=== PATIENT | male | born 1975 | race Caucasian/White ===

== ENCOUNTER 2023-05-14 14:54 | Inpatient (IN) | payer OTHER, MEDICAID, SELFPAY ==
[2023-05-14] VITALS (58 sets, daily range): BP systolic 101–150; BP diastolic 51–75; PULSE 83–106; RESP 0–34; TEMP 36.4–38.5; O2SAT 92–100; BMI 36.6
--- NOTE | 2023-05-14 14:53 | DI.CT.S_ITS ---
PROCEDURE: CT CHEST W CON INDICATIONS: large post chest abscess, sepsis TECHNIQUE: After the administration of intravenous contrast, 5 mm thick sections acquired from the pulmonary apices to the posterior costophrenic angles. 1 mm axial lung, 5 mm thick coronal and sagittal reformats and 7 mm axial MIP were acquired. For radiation dose reduction, the following was used: automated exposure control, adjustment of mA and/or kV according to patient size. COMPARISON: None. FINDINGS: Image quality: Diagnostic. Lower Neck: No enlarged lymph nodes. Thyroid: No thyroid nodules which require sonographic follow up, per consensus guidelines. Axillae: No enlarged lymph nodes. Chest Wall: There is a 6.6 x 10.4 cm focus of inflammatory change predominantly in the right superior posterior chest wall at the level of the scapula. No defined fluid collection is present. There is thickening of the skin surface adjacent to the inflammatory change. Bones: Unremarkable. Lungs and Pleura: No pneumothorax or pleural effusions. No consolidation or suspicious nodules. Heart: Heart size is normal. No pericardial effusion. Thoracic Vessels: The aorta and pulmonary arteries demonstrate normal size. Mediastinum and Lizbeth: No enlarged lymph nodes. Esophagus: No wall thickening. Mild hiatal hernia. Upper Abdomen: Steatosis. Visualized upper abdomen solid organs and bowel loops appear normal. IMPRESSION: Focus of inflammatory change within the posterior chest wall suggestive of infection/inflammation. No drainable fluid collection is currently identified. Dictated by: Bobbi Park M.D. on 05/14/2023 at 16:39 Approved by: Bobbi Park M.D. on 05/14/2023 at 16:42
[2023-05-14] MEDS: SODIUM CHLORIDE 0.9% 1,000 ML 1000 ML IV (15:12)
[2023-05-14] MEDS: HYDROMORPHONE 1 MG INJ IV (15:12)
[2023-05-14 15:16] LABS: pH VBG 7.54 (7.33-7.43)
[2023-05-14 15:17] LABS: Fractionated Inspired Oxygen 21; HCO3 VBG 14 mmol/L (24-28); Oxygen Saturation VBG 67 % (70-75); PCO2 VBG < 18.2 mmHg (45-50); PO2 VBG 28 mmHg (35-45); Total CO2 VBG 15 mmol/L (24-29)
[2023-05-14] MEDS: LIDOCAINE 2% (GLYDO) 6 ML GEL TOP (15:18)
[2023-05-14 15:32] LABS: Hematocrit 45.3 % (41-53); Hemoglobin 15.5 g/dL (13.5-17.5); Mean Corpuscular HGB Conc 34.4 % (30-36); Mean Corpuscular Hemoglobin 30.4 PG (26-34); Mean Corpuscular Volume 88.5 fL (80-100); Platelet Count 449 X10^3/uL (150-400); Red Blood Cell Count 5.11 X10^6/uL (4.5-5.9); Red Cell Distribution Width 13.1 % (11.6-14.8)
[2023-05-14] MEDS: CEFEPIME 2 GM in SODIUM CHLORIDE 0.9% 100 ML IV (15:37)
[2023-05-14 15:39] LABS: Alanine Aminotransferase 28 IU/L (<50); Albumin 3.4 g/dL (3.5-5.0); Albumin Globulin Ratio 0.9 (1.0-2.8); Alkaline Phosphatase 181 U/L (38-126); Aspartate Aminotransferase 36 IU/L (17-59); BUN Creatinine Ratio 26.8 (6-22); Bilirubin Total 0.8 mg/dL (0.2-1.3); Blood Urea Nitrogen 26 mg/dL (9-20); Calcium 8.6 mg/dL (8.4-10.2); Carbon Dioxide 15 mmol/L (22-32); Chloride 96 mmol/L (98-107); Estimated Glomerular Filt Rate > 60 mL/min (>60); Globulin 3.7 g/dL (1.7-4.1); Glucose 441 mg/dL (70-100); HEMOLYSIS < 15 (0-50); Ketones (Beta-Hydroxybutyrate) 4.19 mmol/L (<0.27); Lipase 43 U/L (23-300); Magnesium 2.7 mg/dL (1.6-2.3); Potassium 4.6 mmol/L (3.4-5.1); Sodium 126 mmol/L (137-145); Total Protein 7.1 g/dL (6.3-8.2)
[2023-05-14 15:40] LABS: Add Manual Diff / Slide Review YES
--- NOTE | 2023-05-14 15:40 | ED_ITS ---
HPI - General Adult General Chief complaint: Wound/Laceration Stated complaint: Wasp sting Time Seen by Provider: 05/14/23 14:54 Source: EMS Mode of arrival: EMS History of Present Illness HPI narrative: 47-year-old gentleman who states he has no significant medical problems states that he was stung by a ground wasp on May 03, the wasp was caught in his hair and continued stinging him for an extended period of time. The next day he was feeling unwell, was worried that he was going to either vomit or have a bowel movement went to the bathroom and woke up on May 07. He was able to call out enough for a neighbor to here, they apparently helped him back into bed and helped him clean up the bathroom. He has not sure what happened in the interval. Another friend came over and put a dressing on the wasp sting/wound on his back. He is continued to worsen and is brought in by medics. He has a large abscess on his back, he is pale, ivy, tachypneic looks acutely ill. He states that his legs are typically always weak but his arms are so weak he is having difficulty lifting them, they feel ?like wet noodles?. He is currently alert, able to carry on a complete conversation, he is tachypneic without any wheezing or accessory muscle use. Related Data Allergies Allergy/AdvReac Type Severity Reaction Status Date / Time azithromycin Allergy Unknown Verified 05/14/23 15:08 Penicillins Allergy Unknown Verified 05/14/23 15:08 Review of Systems Review of Systems Narrative: Pertinent positive and negative findings as per HPI Patient History Social History Smoking Status: Never smoker Smoking Status: Never smoker alcohol intake frequency: 0-2 drinks per day Substance Use Type: does not use Exam Initial Vital Signs Initial Vital Signs: Vital Signs Temperature 97.5 F L 05/14/23 15:00 Pulse Rate 106 H 05/14/23 15:00 Respiratory Rate 18 05/14/23 15:00 Blood Pressure 150/75 H 05/14/23 15:00 Pulse Oximetry 99 05/14/23 15:00 Oxygen Delivery Method Room Air 05/14/23 15:00 General: Acutely ill-appearing, tachypneic, he is able to speak in full sentences, poor overall color without diaphoresis HEENT: mucous membranes, normal sclera with reactive pupils, Neck: No JVD, no cervical adenopathy Respiratory: Lungs are clear to auscultation, no wheezing no rales no rhonchi. Full and symmetrical air movement, rapid rate Chest: Large, estimated 15 x 20 cm abscess/cellulitis over the right scapular area. There is fluctuance no obvious area drainage Cardiac: Rapid but otherwise Regular rate and rhythm no murmurs no bruits Abdomen: Soft, nontender, no flank pain Skin: Pale, he has not diaphoretic, other than the abscess over his back there was no obvious rashes. He does not have any chronic venous stasis changes Neurologic: Globally weak but can move all extremities Extremities: No trauma, no lower extremity edema. Poor distal perfusion central perfusion is maintained Psych: Cooperative, somewhat confused Course Orders Ordered: ED Orders 05/14/23 14:53 CT chest w con Stat 05/14/23 14:54 Blood Culture Stat EKG-12 Lead Stat 05/14/23 15:08 Venous Blood Gas Stat 05/14/23 15:11 Complete Blood Count AUTO DIFF Stat Comprehensive Metabolic Panel Stat Ethanol (ETOH) Stat Ketones (Beta-Hydroxybutyrate) Stat Lactate (Lactic Acid) Stat Lipase Stat Magnesium Stat Pathologist Review (for CBC) Stat Procalcitonin Stat Troponin & CK Cardiac Panel Stat 05/14/23 15:19 Wound Culture and Gram Stain Stat 05/14/23 15:21 Consult to MANAGER [employer] - Gastroenterology Manager Stat 05/14/23 15:40 Ictotest Urine Stat Urinalysis and Microscopic Stat Urine Drug Screen, Rapid Stat Acetaminophen (Acetaminophen 325 Mg Tablet) 650 mg PO Q6H PRN PRN Reason: Fever/Mild Pain (1-3) Heparin Sodium (Porcine) (Heparin 5,000 Unit/Ml Vial) 5,000 unit SUBCUT BID AKILAH Hydromorphone HCl (Hydromorphone 0.5 Mg Inj) 0.5 mg IV Q15MIN PRN PRN Reason: Pain, Severe (7-10) Last Admin: 05/14/23 16:48 Dose: 0.5 mg Documented By: SERGIO Vancomycin HCl/Dextrose (Vancomycin) 2,000 mg in 400 mls @ 200 mls/hr IV NOW ONE Stop: 05/14/23 18:14 Last Admin: 05/14/23 16:51 Dose: 200 mls/hr Documented By: SERGIO Sodium Chloride (Normal Saline 0.9%) 2,328 mls @ 776 mls/hr 30 ml/kg infuse over 3 hr (2328 ml) IV NOW ONE Stop: 05/14/23 20:22 Sodium Chloride (Normal Saline 0.45%) 1,000 mls @ 100 mls/hr IV CONT AKILAH Cefepime HCl 2 gm/ Sodium (Chloride) 100 mls @ 200 mls/hr IV Q12H AKILAH Ibuprofen (Ibuprofen 600 Mg Tablet) 600 mg PO Q6H PRN PRN Reason: Fever/Mild Pain (1-3) Morphine Sulfate (Morphine 4 Mg/Ml Inj) 3 mg IV Q2HR AKILAH Naloxone HCl (Naloxone 0.4 Mg/Ml Vial) 0.2 mg IV Q2MIN PRN PRN Reason: Opiate Reversal Ondansetron HCl (Ondansetron 4 Mg/2 Ml Inj) 4 mg IV Q8HR PRN PRN Reason: Nausea And Vomiting Oxycodone HCl (Oxycodone Ir 5 Mg Tablet) 5 mg PO Q3H PRN PRN Reason: Pain, Moderate (4-6) Vancomycin HCl (Vancomycin Per Pharmacy) 1 request MISC NOW PRN PRN Reason: cellulitis Discontinued Medications Hydromorphone HCl (Hydromorphone 1 Mg Inj) 1 mg IV NOW ONE Stop: 05/14/23 15:09 Last Admin: 05/14/23 15:12 Dose: 1 mg Documented By: RYAN Sodium Chloride (Normal Saline 0.9%) 1,000 mls @ 1,000 mls/hr IV BOLUS ONE Stop: 05/14/23 15:52 Last Infusion: 05/14/23 16:35 Dose: Infused Documented By: Admin: 05/14/23 15:12 Dose: 1,000 mls/hr Documented By: RYAN Cefepime HCl 2 gm/ Sodium (Chloride) 100 mls @ 200 mls/hr IV NOW ONE Stop: 05/14/23 14:54 Last Infusion: 05/14/23 16:10 Dose: Infused Documented By: Admin: 05/14/23 15:37 Dose: 200 mls/hr Documented By: ERICKSON Acetaminophen (Ofirmev) 1,000 mg in 100 mls @ 400 mls/hr IV NOW ONE Stop: 05/14/23 16:50 Last Infusion: 05/14/23 17:05 Dose: Infused Documented By: Admin: 05/14/23 16:49 Dose: 400 mls/hr Documented By: SERGIO Lidocaine HCl (Lidocaine 2% (Glydo) 6 Ml Gel) 6 ml TOP NOW ONE Stop: 05/14/23 15:10 Last Admin: 05/14/23 15:18 Dose: 6 ml Documented By: RYAN Vancomycin HCl (Vancomycin Per Pharmacy) 1 request MISC NOW ONE Stop: 05/14/23 14:54 Last Admin: 05/14/23 17:00 Dose: Not Given Documented By: SERGIO Vital Signs Vital signs: Vital Signs - 8 hr 05/14/23 15:00 05/14/23 15:00 05/14/23 15:00 Temperature 97.5 F L Pulse Rate 106 H 106 H Respiratory Rate 18 23 Blood Pressure 150/75 H 150/73 H Pulse Oximetry 99 100 Oxygen Delivery Method Room Air 05/14/23 15:10 05/14/23 15:20 05/14/23 15:20 Temperature Pulse Rate 102 H 96 H Respiratory Rate 28 H 28 H Blood Pressure 124/67 Pulse Oximetry 100 98 Oxygen Delivery Method Room Air 05/14/23 15:30 05/14/23 15:30 05/14/23 15:40 Temperature 100.2 F H Pulse Rate 100 H 94 H Respiratory Rate 26 H 15 Blood Pressure 136/67 Pulse Oximetry 100 100 Oxygen Delivery Method Room Air 05/14/23 15:40 05/14/23 15:50 05/14/23 15:52 Temperature 100.9 F H 101.1 F H Pulse Rate 95 H 93 H Respiratory Rate 34 H 23 Blood Pressure 133/66 Pulse Oximetry 99 100 Oxygen Delivery Method 05/14/23 15:52 05/14/23 16:00 05/14/23 16:00 Temperature 101.1 F H Pulse Rate 87 Respiratory Rate 17 Blood Pressure 146/64 H 134/62 Pulse Oximetry 99 Oxygen Delivery Method 05/14/23 16:10 05/14/23 16:10 05/14/23 16:26 Temperature 101.3 F H 101.3 F H Pulse Rate 85 96 H Respiratory Rate 15 17 Blood Pressure 129/62 Pulse Oximetry 96 Oxygen Delivery Method 05/14/23 16:26 05/14/23 16:30 05/14/23 16:30 Temperature 101.1 F H Pulse Rate 95 H Respiratory Rate 22 Blood Pressure 142/63 H 143/67 H Pulse Oximetry 99 Oxygen Delivery Method 05/14/23 16:40 05/14/23 16:40 05/14/23 16:50 Temperature 101.1 F H 101.1 F H Pulse Rate 91 H 90 Respiratory Rate 16 16 Blood Pressure 129/59 L Pulse Oximetry 98 99 Oxygen Delivery Method Room Air 05/14/23 16:50 05/14/23 17:00 05/14/23 17:00 Temperature 101.1 F H Pulse Rate 96 H Respiratory Rate 20 Blood Pressure 131/66 136/75 Pulse Oximetry 99 Oxygen Delivery Method 05/14/23 17:01 05/14/23 17:10 05/14/23 17:15 Temperature 101.1 F H 101.1 F H 101.1 F H Pulse Rate 83 87 Respiratory Rate 0 L 7 L Blood Pressure Pulse Oximetry 98 96 Oxygen Delivery Method 05/14/23 17:15 05/14/23 17:20 05/14/23 17:30 Temperature 101.1 F H Pulse Rate 92 H 93 H Respiratory Rate 7 L 8 L Blood Pressure 112/54 L Pulse Oximetry 95 94 Oxygen Delivery Method 05/14/23 17:30 05/14/23 17:40 05/14/23 17:45 Temperature 100.8 F H Pulse Rate 98 H Respiratory Rate 12 Blood Pressure 105/51 L 106/56 L Pulse Oximetry 97 Oxygen Delivery Method 05/14/23 17:45 Temperature 100.8 F H Pulse Rate 97 H Respiratory Rate 17 Blood Pressure Pulse Oximetry 98 Oxygen Delivery Method Medical Decision Making Lab Data 05/14/23 15:11 05/14/23 15:11 Labs: Lab Results 05/14/23 05/14/23 05/14/23 Range/Units 15:08 15:11 15:11 WBC 38.0 H* (4.5-11.0) X10^3/uL RBC 5.11 (4.5-5.9) X10^6/uL Hgb 15.5 (13.5-17.5) g/dL Hct 45.3 (41-53) % MCV 88.5 (80-100) fL MCH 30.4 (26-34) PG MCHC 34.4 (30-36) % RDW 13.1 (11.6-14.8) % Plt Count 449 H (150-400) X10^3/uL Neut % (Auto) Not Reportable Lymph % (Auto) Not Reportable [place] % (Auto) Not Reportable Eos % (Auto) Not Reportable Baso % (Auto) Not Reportable Lymph # (Auto) Not Reportable [place] # (Auto) Not Reportable Baso # (Auto) Not Reportable Total Counted 100 Seg Neutrophils % 53.0 (38-70) % Band Neutrophils % 22.0 H (3-7) % Lymphocytes % (Manual) 6.0 L (25-45) % Atypical Lymphs % 5.0 H ( - 0) % Monocytes % (Manual) 11.0 (2-11) % Metamyelocytes % 3.0 H (-0) % Neutrophils # (Manual) 09913 H (5285-1796) /uL RBC Morphology Normal morphology VBG pH 7.54 H (7.33-7.43) VBG pCO2 < 18.2 L (45-50) mmHg VBG pO2 28 L (35-45) mmHg VBG HCO3 14 L (24-28) mmol/L VBG Total CO2 15 L (24-29) mmol/L VBG O2 Saturation 67 L (70-75) % VBG Base Excess -8.0 L (0-4) mmol/L FiO2 21 Sodium 126 L (137-145) mmol/L Potassium 4.6 (3.4-5.1) mmol/L Chloride 96 L (98-107) mmol/L Carbon Dioxide 15 L (22-32) mmol/L BUN 26 H (9-20) mg/dL Creatinine 0.97 (0.66-1.25) mg/dL Estimated GFR > 60 (>60) mL/min BUN/Creatinine Ratio 26.8 H (6-22) Glucose 441 H (70-100) mg/dL Lactate 4.0 H (0.7-2.1) mmol/L Calcium 8.6 (8.4-10.2) mg/dL Magnesium 2.7 H (1.6-2.3) mg/dL Total Bilirubin 0.8 (0.2-1.3) mg/dL AST 36 (17-59) IU/L ALT 28 (<50) IU/L Alkaline Phosphatase 181 H (38-126) U/L Total Creatine Kinase 40 L (55-170) U/L Troponin I Cancelled < 0.012 Total Protein 7.1 (6.3-8.2) g/dL Albumin 3.4 L (3.5-5.0) g/dL Globulin 3.7 (1.7-4.1) g/dL Albumin/Globulin Ratio 0.9 L (1.0-2.8) Lipase 43 (23-300) U/L Procalcitonin 0.98 H (<0.5) ng/mL Urine Color Urine Appearance Urine pH (4.5-8.0) Ur Specific [place] (1.000-1.035) Urine Protein (Negative) Urine Glucose (UA) (Negative) g/dL Urine Ketones (NEGATIVE) Urine Occult Blood (Negative) Urine Nitrate (Negative) Urine Bilirubin (NEGATIVE) Ur Bilirubin Confirm (Negative) Urine Urobilinogen (0.2) E.U./dL Ur Leukocyte Esterase (NEGATIVE) Urine RBC (0-5/HPF) Urine WBC (0-5/HPF) Ur Squamous Epith Cells (0-5/HPF) Urine Bacteria (None) Hyaline Casts (None) Ur Culture Indicated? Vol Urine Centrifuged U Opiates 300ng/mL cut (Negative) Ur Oxycodone Screen (Negative) Urine Methadone Screen (Negative) Ur Barbiturates Screen (Negative) U Tricyclic Antidepress (Negative) Ur Phencyclidine Scrn (Negative) Ur Amphetamines Screen (Negative) U Methamphetamines Scrn (Negative) Ur MDMA Scrn (Ecstasy) (Negative) U Benzodiazepines Scrn (Negative) Urine Cocaine Screen (Negative) U Marijuana (THC) Screen (Negative) Urine Specific [place] (Normal) Ethyl Alcohol < 10 ( - 10) mg/dL Ketones 4.19 H (<0.27) mmol/L Ur Creatinine (Normal) 05/14/23 05/14/23 05/14/23 Range/Units 15:40 15:40 17:26 WBC (4.5-11.0) X10^3/uL RBC (4.5-5.9) X10^6/uL Hgb (13.5-17.5) g/dL Hct (41-53) % MCV (80-100) fL MCH (26-34) PG MCHC (30-36) % RDW (11.6-14.8) % Plt Count (150-400) X10^3/uL Neut % (Auto) Lymph % (Auto) [place] % (Auto) Eos % (Auto) Baso % (Auto) Lymph # (Auto) [place] # (Auto) Baso # (Auto) Total Counted Seg Neutrophils % (38-70) % Band Neutrophils % (3-7) % Lymphocytes % (Manual) (25-45) % Atypical Lymphs % ( - 0) % Monocytes % (Manual) (2-11) % Metamyelocytes % (-0) % Neutrophils # (Manual) (7310-7202) /uL RBC Morphology VBG pH (7.33-7.43) VBG pCO2 (45-50) mmHg VBG pO2 (35-45) mmHg VBG HCO3 (24-28) mmol/L VBG Total CO2 (24-29) mmol/L VBG O2 Saturation (70-75) % VBG Base Excess (0-4) mmol/L FiO2 Sodium (137-145) mmol/L Potassium (3.4-5.1) mmol/L Chloride (98-107) mmol/L Carbon Dioxide (22-32) mmol/L BUN (9-20) mg/dL Creatinine (0.66-1.25) mg/dL Estimated GFR (>60) mL/min BUN/Creatinine Ratio (6-22) Glucose (70-100) mg/dL Lactate 2.1 (0.7-2.1) mmol/L Calcium (8.4-10.2) mg/dL Magnesium (1.6-2.3) mg/dL Total Bilirubin (0.2-1.3) mg/dL AST (17-59) IU/L ALT (<50) IU/L Alkaline Phosphatase (38-126) U/L Total Creatine Kinase (55-170) U/L Troponin I Total Protein (6.3-8.2) g/dL Albumin (3.5-5.0) g/dL Globulin (1.7-4.1) g/dL Albumin/Globulin Ratio (1.0-2.8) Lipase (23-300) U/L Procalcitonin (<0.5) ng/mL Urine Color Yellow Urine Appearance Clear Urine pH 5.0 Normal (4.5-8.0) Ur Specific [place] 1.015 (1.000-1.035) Urine Protein 1+ H (Negative) Urine Glucose (UA) 2+ H (Negative) g/dL Urine Ketones 2+ H (NEGATIVE) Urine Occult Blood 1+ H (Negative) Urine Nitrate Negative (Negative) Urine Bilirubin 1+ H (NEGATIVE) Ur Bilirubin Confirm Negative (Negative) Urine Urobilinogen 0.2 (0.2) E.U./dL Ur Leukocyte Esterase Negative (NEGATIVE) Urine RBC None seen (0-5/HPF) Urine WBC 0-1/hpf (0-5/HPF) Ur Squamous Epith Cells 0-1 /hpf (0-5/HPF) Urine Bacteria None seen (None) Hyaline Casts 1-5/lpf (None) Ur Culture Indicated? Cult not indicated Vol Urine Centrifuged 10ml (spun) U Opiates 300ng/mL cut Negative (Negative) Ur Oxycodone Screen Negative (Negative) Urine Methadone Screen Negative (Negative) Ur Barbiturates Screen Negative (Negative) U Tricyclic Antidepress Negative (Negative) Ur Phencyclidine Scrn Negative (Negative) Ur Amphetamines Screen Negative (Negative) U Methamphetamines Scrn Negative (Negative) Ur MDMA Scrn (Ecstasy) Negative (Negative) U Benzodiazepines Scrn Negative (Negative) Urine Cocaine Screen Negative (Negative) U Marijuana (THC) Screen Negative (Negative) Urine Specific [place] Normal (Normal) Ethyl Alcohol ( - 10) mg/dL Ketones (<0.27) mmol/L Ur Creatinine Normal (Normal) Point of Care Testing Glucose POC 415 Point of care testing: Point of Care Testing Glucose POC [address] scan - chest: Radiologist's Impression: PROCEDURE: CT CHEST W CON INDICATIONS: large post chest abscess, sepsis TECHNIQUE: After the administration of intravenous contrast, 5 mm thick sections acquired from the pulmonary apices to the posterior costophrenic angles. 1 mm axial lung, 5 mm thick coronal and sagittal reformats and 7 mm axial MIP were acquired. For radiation dose reduction, the following was used: automated exposure control, adjustment of mA and/or kV according to patient size. COMPARISON: None. FINDINGS: Image quality: Diagnostic. Lower Neck: No enlarged lymph nodes. Thyroid: No thyroid nodules which require sonographic follow up, per consensus guidelines. Axillae: No enlarged lymph nodes. Chest Wall: There is a 6.6 x 10.4 cm focus of inflammatory change predominantly in the right superior posterior chest wall at the level of the scapula. No defined fluid collection is present. There is thickening of the skin surface adjacent to the inflammatory change. Bones: Unremarkable. Lungs and Pleura: No pneumothorax or pleural effusions. No consolidation or suspicious nodules. Heart: Heart size is normal. No pericardial effusion. Thoracic Vessels: The aorta and pulmonary arteries demonstrate normal size. Mediastinum and Lizbeth: No enlarged lymph nodes. Esophagus: No wall thickening. Mild hiatal hernia. Upper Abdomen: Steatosis. Visualized upper abdomen solid organs and bowel loops appear normal. IMPRESSION: Focus of inflammatory change within the posterior chest wall suggestive of infection/inflammation. No drainable fluid collection is currently identified. Dictated by: Bobbi Park M.D. on 05/14/2023 at 16:39 MDM Narrative Medical decision making narrative: CC: Wasp sting to the right clavicle area with large abscess and initial concern for severe sepsis Complicating co-morbidities: Patient denies any medical diagnoses Data collected from: patient Social determinants of health that may influence the patients condition: Lives independently Medical records reviewed: None are available for review at [place], it does not appear that he has been to [facility]. [facility] has not seen him for more than 5 years Differential considered: Sepsis, large abscess, empyema Exam documented above, pertinent findings include: Patient appears acutely ill, tachypneic, large abscess over the right side of his upper back, poor peripheral perfusion maintain central perfusion Lab Test results independently reviewed as above. Pertinent findings: CBC is notable for a white count at 38,000, H and H is appropriate at 15.5 and 45.3 Venous blood gas has a pH of 7.54 with a CO2 of less than 18 (respiratory alkalosis) Chemistries are notable for appropriate creatinine at 0.97. Sodium is low at 126 corrects appropriately with a glucose at 4:41 a.m.. Carbon dioxide is low at 15, Lactic acid elevated at 4 Magnesium elevated at 2 point Bili AST ALT are unremarkable. Alk-phos slightly elevated at 181 Urine has protein glucose ketones blood no nitrites positive bili Ketones are positive at 4.19 Toxicology screen is unremarkable, Independently reviewed EKG: Sinus rhythm at a rate of 94. QTC is prolonged at 505 milliseconds. No acute ischemic changes. Imaging studies independently reviewed: CT scan of the chest is done with concern for development of large abscess. Shows the large area of cellulitis but no fluid collection that is drainable at this point. It does not connect with the pleural space Treatments: Fluids at 30 per kilos are initiated. Cefepime and vancomycin are started. Discussion: 47-year-old gentleman who was reportedly stung by a ground washed multiple times over the right scapular area. Multiple days at home that he states he was lying in the floor with no evidence of significant pressure sores or rhabdomyolysis. Significantly tachypneic with large cellulitis but no abscess collection that can be surgically treated at this time. He has been given fluids with 30 per kilos bolus ordered per sepsis protocol as well as started on cefepime and vancomycin. He is meeting criteria for severe sepsis but not for septic shock. Additional issues include significant hyperglycemia at 441, procalcitonin slightly elevated, ketones are positive he is tachypneic with a uncompensated respiratory alkalosis. He does not believe that he carries a diagnosis of diabetes. Patient is doing better with fluid resuscitation and after antibiotics and Tylenol for his fever. Care is discussed with the hospitalist service. In the absence of a drainable abscess he will go to medicine service with antibiotics, continued fluids, he is not tachypneic nor hypotensive but will start in the ICU tonight. We will need to follow the elevated blood sugars in the presence of ketones and significant tachypnea along with the alkalosis appreciated at 7.548. Additional Information: Severe Sepsis Criteria [ x] bacterial source of infection suspected and documented [ ] 2 SIRS Criteria met [ x ] HR >90 [x ] RR >20 [ ] fever or hypothermia [ x ] leukocytosis/leukopenia/bandemia [ ] Evidence of at least 1 organ system dysfunction [ x ] Lactate > 2 [ ] BP < 90 or MAP <65, >40mm decrease from normal baseline [ ] Creat > 2.0 [ ] T. Bili > 2.0 [ ] platelet count < 100k [ x ] altered mental status [ ] mechanical ventilation [ ] provider documentation of severe sepsis Severe Sepsis Determination. the patient has been screened and [ x] DOES meet criteria for severe sepsis [ ] DOES NOT meet criteria for severe sepsis Goal directed treatment Within 3 hours [ x ] blood cx drawn prior to abx [ x ] broad spectrum abx started [ x ] lactic acid level checked [ ] lactic redrawn within 6 hours if >2.0 Septic Shock Criteria [ ] lactic > 4 at any time [ ] SBP ,90 or MAP , 65 [ ] documentation of septic shock Time Septic Shock diagnosed: [ ] Septic Shock Determination. the patient has been screened and [ ] DOES meet criteria for septic shock [ ] DOES NOT meet criteria for septic shock Goal directed therapy within 3 hours of septic shock or initial hypotension [ ] 30ml/kg fluid [ ] ABW used [ ] IBW (33.6) used due to BMI > 30 [ ] patient or advocate declining fluid administration after shared decision making conversation Clinical reason for NOT initiating fluid bolus: Within 6 hours (if continued hypotension after fluids or initial lactate >4) [ ] repeat volume status and tissue perfusion assessment documented after fluid bolus was completed at [Date/Time] Must include vital signs, cardiopulmonary exam, capillary refill, peripheral pulse evaluation, skin exam [ ] Initiate vasopressor therapy if persistent hypotension after adequate fluid bolus Critical Care Time Critical Care Time Critical Care Time: Yes Total Critical Care Time: 33 Attestation: Critical care time is separate from other billable procedures. There is a high probability of a significant, sudden or life-threatening deterioration that requires my full and direct attention, intervention and personal management. This critical care time includes consultation with family and other consulting doctors, review of records, and interpretation of data from labs, EKGs and imaging as well as managements of sepsis, altered mental status Discharge Plan Departure Patient Disposition: Admitted As Inpatient Clinical Impression: Acute hyperglycemia, Alkalosis, metabolic, Acute metabolic encephalopathy Sepsis Qualifiers: Sepsis type: sepsis due to unspecified organism Sepsis acute organ dysfunction status: with acute organ dysfunction Severe sepsis acute organ dysfunction type: encephalopathy Severe sepsis shock status: without septic shock Qualified Code(s): A41.9 - Sepsis, unspecified organism Cellulitis Qualifiers: Site of cellulitis: trunk Site of cellulitis of trunk: back Qualified Code(s): L03.312 - Cellulitis of back [any part except buttock] Admit Date/Time: 05/14/23 17:47 Admit Provider: Rick Teague
[2023-05-14 15:44] LABS: Neutrophils Absolute Manual 28500 /uL (3000-5900); Total Cells Counted 100
[2023-05-14 15:45] LABS: Appearance Urine UA CLEAR; Bilirubin Urine UA 1+ (NEGATIVE); Color Urine UA YELLOW; Glucose Urine UA 2+ g/dL (Negative); Ketones Urine UA 2+ (NEGATIVE); Leukocyte Esterase Urine UA NEGATIVE (NEGATIVE); Nitrite Urine UA NEGATIVE (Negative); Occult Blood Urine UA 1+ (Negative); Protein Urine UA 1+ (Negative); Specific Gravity Urine UA 1.015 (1.000-1.035); Urobilinogen Urine UA 0.2 E.U./dL (0.2)
[2023-05-14 15:45] LABS: RBC Morphology Normal Morphology
[2023-05-14 15:46] LABS: Creatine Kinase 40 U/L (55-170)
[2023-05-14 15:54] LABS: Procalcitonin 0.98 ng/mL (<0.5)
[2023-05-14 15:55] LABS: Ictotest Urine Negative (Negative); Urine Volume 10mL (spun)
[2023-05-14 15:56] LABS: Bacteria Urine None Seen; Culture Indicated Urine Cult Not Indicated; Hyaline Casts Urine 1-5/LPF; RBC Urine None Seen (0-5/HPF); Squamous Epithelial Cell Urine 0-1 /HPF (0-5/HPF); WBC Urine 0-1/HPF (0-5/HPF)
[2023-05-14 15:59] LABS: Troponin I < 0.012 ng/mL (0.01-0.034)
[2023-05-14 16:03] LABS: UR Morphine/Opiate cutoff 300 Negative (Negative); Ur Creatinine Normal (Normal); Ur Specific Gravity Normal (Normal); Urine Amphetamines Negative (Negative); Urine Barbiturates Negative (Negative); Urine Benzodiazepines Negative (Negative); Urine Cocaine Negative (Negative); Urine MDMA Negative (Negative); Urine Methadone Negative (Negative); Urine Methamphetamines Negative (Negative); Urine Oxycodone Negative (Negative); Urine Phencyclidine Negative (Negative); Urine Tetrahydrocannabinol Negative (Negative); Urine Tricyclic Antidepressant Negative (Negative); Urine pH Normal (Normal)
[2023-05-14 16:12] LABS: Ethanol (ETOH) < 10 mg/dL
[2023-05-14] MEDS: HYDROMORPHONE 0.5 MG INJ IV (16:48)
[2023-05-14] MEDS: ACETAMINOPHEN IV 1,000 MG/100 ML VIAL 400 MG IV (16:49)
[2023-05-14] MEDS: VANCOMYCIN 2,000 MG/400 ML PIGGYBACK 200 MG IV (16:51)
[2023-05-14 16:54] LABS: Reflexed Lactate in 2 Hours Y
[2023-05-14 17:43] LABS: Lactate 2HR (Lactic Acid Rflx) 2.1 mmol/L (0.7-2.1)
--- NOTE | 2023-05-14 18:03 | PM.HP.1 ---
History of Present Illness History of Present Illness Date Patient Seen: 05/14/23 Time Patient Seen: 18:03 Chief complaint: Wasp sting Narrative: The patient was stung by a wasp on May 04. He lost time from May 04 to May 07 and had felt unwell since the sting. Since the he has had progressive fatigue and difficulty with weakness. He lives alone and multiple friends have stopped by to assist. Ultimately a friend noted that he has what appears to be a large infection on his back over a shoulder blade. He came into the ER where he was found to be pale and tachypneic and looked acutely ill. He notes his arms and legs are weak, his chronic weakness of legs is normal but his arms are usually stronger. In the ED he was [place] [id number]. He has a very large area of induration over the shoulder blade. CT scan was negative for obvious fluid collection. There was no evidence of fasciitis. The patient was given IV antibiotics and also found to have hyperglycemia with a glucose of over 500. He reports no history of diabetes. He was also tachypneic and a venous blood gas revealed a pH of 7.54 with a pCO2 of 15 NaHCO3 of 14. His sodium was 126, chloride 96, creatinine 0.97. Glucose was 441 with a lactic acid of 4.0 and a calcium of 8.6. A urine drug screen was negative. In talking to the patient more he has little to add that is concrete. He does note that he decided to be all for help through his window at his house today because he was going into organ failure. He denies any history of known diabetes but notes that his mother had diabetes. He also is not sure if he has been urinating more or less recently. [facility] Social History household members: none Smoking Status: Never smoker Meds Home Medications and Allergies Home Medications Medication Instructions Recorded Confirmed Type No Known Home Medications 05/14/23 05/14/23 History Allergies Allergy/AdvReac Type Severity Reaction Status Date / Time azithromycin Allergy Unknown Verified 05/14/23 15:08 Penicillins Allergy Unknown Verified 05/14/23 15:08 Review of Systems Review of Systems Narrative: All else reviewed and otherwise unremarkable except as noted in the history and physical. Exam Vital Signs (past 8 hours): - 05/14/23 15:00 05/14/23 15:00 05/14/23 15:00 Temperature 97.5 F L Pulse Rate 106 H 106 H Respiratory Rate 18 23 Blood Pressure 150/75 H 150/73 H Pulse Oximetry 99 100 Oxygen Delivery Method Room Air 05/14/23 15:10 05/14/23 15:20 05/14/23 15:20 Temperature Pulse Rate 102 H 96 H Respiratory Rate 28 H 28 H Blood Pressure 124/67 Pulse Oximetry 100 98 Oxygen Delivery Method Room Air 05/14/23 15:30 05/14/23 15:30 05/14/23 15:40 Temperature 100.2 F H Pulse Rate 100 H 94 H Respiratory Rate 26 H 15 Blood Pressure 136/67 Pulse Oximetry 100 100 Oxygen Delivery Method Room Air 05/14/23 15:40 05/14/23 15:50 05/14/23 15:52 Temperature 100.9 F H 101.1 F H Pulse Rate 95 H 93 H Respiratory Rate 34 H 23 Blood Pressure 133/66 Pulse Oximetry 99 100 Oxygen Delivery Method 05/14/23 15:52 05/14/23 16:00 05/14/23 16:00 Temperature 101.1 F H Pulse Rate 87 Respiratory Rate 17 Blood Pressure 146/64 H 134/62 Pulse Oximetry 99 Oxygen Delivery Method 05/14/23 16:10 05/14/23 16:10 05/14/23 16:26 Temperature 101.3 F H 101.3 F H Pulse Rate 85 96 H Respiratory Rate 15 17 Blood Pressure 129/62 Pulse Oximetry 96 Oxygen Delivery Method 05/14/23 16:26 05/14/23 16:30 05/14/23 16:30 Temperature 101.1 F H Pulse Rate 95 H Respiratory Rate 22 Blood Pressure 142/63 H 143/67 H Pulse Oximetry 99 Oxygen Delivery Method 05/14/23 16:40 05/14/23 16:40 05/14/23 16:50 Temperature 101.1 F H 101.1 F H Pulse Rate 91 H 90 Respiratory Rate 16 16 Blood Pressure 129/59 L Pulse Oximetry 98 99 Oxygen Delivery Method Room Air 05/14/23 16:50 05/14/23 17:00 05/14/23 17:00 Temperature 101.1 F H Pulse Rate 96 H Respiratory Rate 20 Blood Pressure 131/66 136/75 Pulse Oximetry 99 Oxygen Delivery Method 05/14/23 17:01 05/14/23 17:10 05/14/23 17:15 Temperature 101.1 F H 101.1 F H 101.1 F H Pulse Rate 83 87 Respiratory Rate 0 L 7 L Blood Pressure Pulse Oximetry 98 96 Oxygen Delivery Method 05/14/23 17:15 05/14/23 17:20 05/14/23 17:30 Temperature 101.1 F H Pulse Rate 92 H 93 H Respiratory Rate 7 L 8 L Blood Pressure 112/54 L Pulse Oximetry 95 94 Oxygen Delivery Method 05/14/23 17:30 05/14/23 17:40 05/14/23 17:45 Temperature 100.8 F H Pulse Rate 98 H Respiratory Rate 12 Blood Pressure 105/51 L 106/56 L Pulse Oximetry 97 Oxygen Delivery Method 05/14/23 17:45 05/14/23 17:50 Temperature 100.8 F H 100.6 F H Pulse Rate 97 H 100 H Respiratory Rate 17 16 Blood Pressure Pulse Oximetry 98 99 Oxygen Delivery Method Oxygen Delivery Method Room Air Narrative Exam Narrative: NAD, alert and oriented, fluent speech, calm. Odd affect. He appears moderately ill but in no distress. Normocephalic skull, EOMI, anicteric sclera, symmetric pupils. Oropharynx unremarkable, no droop. Neck supple, midline trachea, no adenopathy. Lungs clear, normal rate and effort. Heart regular, no murmur gallop or rub. Abdomen is soft, non distended and non tender. Extremities are free of edema. Skin is free of rash or lesions. Joints are not swollen or deformed. Judgment appears to be abnormal. He has a large area of redness and induration over his left scapula. This is about the size of an extended palm. He is tender to touch. Objective Imaging CT scan - chest: Radiologist's impression: Focus of inflammatory change within the posterior chest wall suggestive of infection/inflammation. No drainable fluid collection is currently identified. Labs 05/14/23 15:11 05/14/23 15:11 Labs: Laboratory Results - last 24 hr 05/14/23 05/14/23 05/14/23 15:08 15:11 15:11 WBC 38.0 H* RBC 5.11 Hgb 15.5 Hct 45.3 MCV 88.5 MCH 30.4 MCHC 34.4 RDW 13.1 Plt Count 449 H Neut % (Auto) Not Reportable Lymph % (Auto) Not Reportable [place] % (Auto) Not Reportable Eos % (Auto) Not Reportable Baso % (Auto) Not Reportable Lymph # (Auto) Not Reportable [place] # (Auto) Not Reportable Baso # (Auto) Not Reportable Total Counted 100 Seg Neutrophils % 53.0 Band Neutrophils % 22.0 H Lymphocytes % (Manual) 6.0 L Atypical Lymphs % 5.0 H Monocytes % (Manual) 11.0 Metamyelocytes % 3.0 H Neutrophils # (Manual) 86500 H RBC Morphology Normal morphology VBG pH 7.54 H VBG pCO2 < 18.2 L VBG pO2 28 L VBG HCO3 14 L VBG Total CO2 15 L VBG O2 Saturation 67 L VBG Base Excess -8.0 L FiO2 21 Sodium 126 L Potassium 4.6 Chloride 96 L Carbon Dioxide 15 L BUN 26 H Creatinine 0.97 Estimated GFR > 60 BUN/Creatinine Ratio 26.8 H Glucose 441 H Lactate 4.0 H Calcium 8.6 Magnesium 2.7 H Total Bilirubin 0.8 AST 36 ALT 28 Alkaline Phosphatase 181 H Total Creatine Kinase 40 L Troponin I Cancelled < 0.012 Total Protein 7.1 Albumin 3.4 L Globulin 3.7 Albumin/Globulin Ratio 0.9 L Lipase 43 Procalcitonin 0.98 H Urine Color Urine Appearance Urine pH Ur Specific [place] Urine Protein Urine Glucose (UA) Urine Ketones Urine Occult Blood Urine Nitrate Urine Bilirubin Ur Bilirubin Confirm Urine Urobilinogen Ur Leukocyte Esterase Urine RBC Urine WBC Ur Squamous Epith Cells Urine Bacteria Hyaline Casts Ur Culture Indicated? Vol Urine Centrifuged U Opiates 300ng/mL cut Ur Oxycodone Screen Urine Methadone Screen Ur Barbiturates Screen U Tricyclic Antidepress Ur Phencyclidine Scrn Ur Amphetamines Screen U Methamphetamines Scrn Ur MDMA Scrn (Ecstasy) U Benzodiazepines Scrn Urine Cocaine Screen U Marijuana (THC) Screen Urine Specific [place] Ethyl Alcohol < 10 Ketones 4.19 H Ur Creatinine 05/14/23 05/14/23 05/14/23 15:40 15:40 17:26 WBC RBC Hgb Hct MCV MCH MCHC RDW Plt Count Neut % (Auto) Lymph % (Auto) [place] % (Auto) Eos % (Auto) Baso % (Auto) Lymph # (Auto) [place] # (Auto) Baso # (Auto) Total Counted Seg Neutrophils % Band Neutrophils % Lymphocytes % (Manual) Atypical Lymphs % Monocytes % (Manual) Metamyelocytes % Neutrophils # (Manual) RBC Morphology VBG pH VBG pCO2 VBG pO2 VBG HCO3 VBG Total CO2 VBG O2 Saturation VBG Base Excess FiO2 Sodium Potassium Chloride Carbon Dioxide BUN Creatinine Estimated GFR BUN/Creatinine Ratio Glucose Lactate 2.1 Calcium Magnesium Total Bilirubin AST ALT Alkaline Phosphatase Total Creatine Kinase Troponin I Total Protein Albumin Globulin Albumin/Globulin Ratio Lipase Procalcitonin Urine Color Yellow Urine Appearance Clear Urine pH 5.0 Normal Ur Specific [place] 1.015 Urine Protein 1+ H Urine Glucose (UA) 2+ H Urine Ketones 2+ H Urine Occult Blood 1+ H Urine Nitrate Negative Urine Bilirubin 1+ H Ur Bilirubin Confirm Negative Urine Urobilinogen 0.2 Ur Leukocyte Esterase Negative Urine RBC None seen Urine WBC 0-1/hpf Ur Squamous Epith Cells 0-1 /hpf Urine Bacteria None seen Hyaline Casts 1-5/lpf Ur Culture Indicated? Cult not indicated Vol Urine Centrifuged 10ml (spun) U Opiates 300ng/mL cut Negative Ur Oxycodone Screen Negative Urine Methadone Screen Negative Ur Barbiturates Screen Negative U Tricyclic Antidepress Negative Ur Phencyclidine Scrn Negative Ur Amphetamines Screen Negative U Methamphetamines Scrn Negative Ur MDMA Scrn (Ecstasy) Negative U Benzodiazepines Scrn Negative Urine Cocaine Screen Negative U Marijuana (THC) Screen Negative Urine Specific [place] Normal Ethyl Alcohol Ketones Ur Creatinine Normal Assessment & Plan Assessment & Plan narrative: 1. Posterior thorax severe cellulitis, present on admission and active. 2. Severe sepsis with tachypnea, leukocytosis, initial tachycardia of 102 [place] [address] with a source of left shoulder cellulitis, present on admission and active. 3. Lactic acidosis, present on admission and active. 4. Hyponatremia which is likely hypovolemic, present on admission and active. 5. Metabolic acidosis with respiratory compensation, present on admission and active. Plan: -patient received sepsis bolus of 30 ml/kilogram and we will follow with saline at a rate of 150. -we will monitor blood pressure and other vitals in the intensive care unit -blood cultures have been obtained. We will swab nares for MRSA. -continue broad-spectrum antibiotics with cefepime and vancomycin. -trend lactic acid per sepsis protocol. -monitor tachypnea. -monitor glucose Q 2 hours with IV fluids and correctional insulin. -check HbA1c. -we will use a 1 time dose of IV regular insulin if required. I do not think there is any component of DKA that requires an insulin infusion at this point. Patient was full resuscitation. No proxy for healthcare decisions. Time Spent With Patient Time with patient: 30 to 49 minutes with 50% spent counseling/coordinating care Quality MIPS - Admit I confirm the patient?s Advance Care Plan is present, Code status is documented, Surrogate decision maker is in patient?s record [If Yes, STOP here]: Yes MIPS - Meds 'Current medications' to include all prescriptions, [id number] products, herbals, cannabis/cannabidiol products, and vitamin/mineral/dietary (nutritional) supplements. I have utilized all available resources to obtain, update, or review the patient?s current medications. [If Yes, STOP here]: Yes
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
[2023-05-14] MEDS: SODIUM CHLORIDE 0.9% 2,328 ML 776 ML IV (18:42)
[2023-05-14] MEDS: SODIUM CHLORIDE 0.45% 1,000 ML 150 ML IV (19:25)
[2023-05-14 19:30] LABS: Hemoglobin A1C% w Est Avg Glu 11.7 % (4.0-6.0)
--- NOTE | 2023-05-14 19:37 | PC.WOUNDPHOT ---
Wound is to upper right back.
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
[2023-05-14 20:38] LABS: MRSA (Nasal) PCR Not Detected (Not Detect)
[2023-05-14] MEDS: HEPARIN 5,000 UNIT/ML VIAL 5000 UNIT SUBCUT (20:38)
[2023-05-14] MEDS: IBUPROFEN 600 MG TABLET PO (20:38)
[2023-05-14] MEDS: INSULIN LISPRO 100 UNIT/ML 3ML VIAL SUBCUT (20:41)
[2023-05-15] VITALS (101 sets, daily range): BP systolic 111–142; BP diastolic 53–66; PULSE 87–107; RESP 8–27; TEMP 36.6–38.2; O2SAT 94–99
[2023-05-15] MEDS: CEFEPIME 2 GM in SODIUM CHLORIDE 0.9% 100 ML IV ×2 (05:14→16:48)
[2023-05-15 06:05] LABS: Hematocrit 42.1 % (41-53); Hemoglobin 14.5 g/dL (13.5-17.5); Mean Corpuscular HGB Conc 34.4 % (30-36); Mean Corpuscular Hemoglobin 30.5 PG (26-34); Mean Corpuscular Volume 88.8 fL (80-100); Platelet Count 363 X10^3/uL (150-400); Red Blood Cell Count 4.74 X10^6/uL (4.5-5.9); Red Cell Distribution Width 13.2 % (11.6-14.8)
[2023-05-15 06:06] LABS: Add Manual Diff / Slide Review YES
[2023-05-15 06:07] LABS: White Blood Cell Count 37.2 X10^3/uL (4.5-11.0)
[2023-05-15 06:11] LABS: BUN Creatinine Ratio 29.2 (6-22); Blood Urea Nitrogen 26 mg/dL (9-20); Calcium 7.7 mg/dL (8.4-10.2); Carbon Dioxide 20 mmol/L (22-32); Chloride 101 mmol/L (98-107); Estimated Glomerular Filt Rate > 60 mL/min (>60); Glucose 383 mg/dL (70-100); HEMOLYSIS < 15 (0-50); Potassium 3.6 mmol/L (3.4-5.1); Sodium 129 mmol/L (137-145)
--- NOTE | 2023-05-15 06:11 | PC.NURSE ---
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
[2023-05-15 06:22] LABS: Neutrophils Absolute Manual 32364 /uL (3000-5900); Platelet Estimate Adequate on smear; RBC Morphology Normal Morphology; Total Cells Counted 100
[2023-05-15] MEDS: VANCOMYCIN 1,500 MG/300 ML PIGGYBACK 200 MG IV ×2 (07:03→18:15)
[2023-05-15] MEDS: INSULIN LISPRO 100 UNIT/ML 3ML VIAL SUBCUT ×4 (08:26→20:56)
[2023-05-15] MEDS: SODIUM CHLORIDE 0.45% 1,000 ML 150 ML IV (08:40)
[2023-05-15] MEDS: HEPARIN 5,000 UNIT/ML VIAL 5000 UNIT SUBCUT ×2 (09:00→20:56)
[2023-05-15] MEDS: INSULIN GLARGINE 100 UNIT/ML 3ML PEN 15 UNIT SUBCUT ×2 (09:00→20:57)
[2023-05-15] MEDS: ACETAMINOPHEN 325 MG TABLET 650 MG PO (12:17)
[2023-05-15] MEDS: SODIUM CHLORIDE 0.45% 1,000 ML 75 ML IV (15:12)
--- NOTE | 2023-05-15 16:59 | PM.PN.1 ---
Subjective Subjective Interval history: 47 M admitted with a R back cellulitis. Pain continues today, but improved. Appears to be coalescing into an abscess, have asked for surgery to evaluate for possible I&D. Remains on antibiotics. Exam Vital Signs (past 8 hours): - 05/15/23 09:00 05/15/23 09:00 05/15/23 09:10 Temperature 99.1 F 99.1 F Pulse Rate 93 H 94 H Respiratory Rate Blood Pressure 124/64 124/64 Pulse Oximetry 97 97 05/15/23 09:20 05/15/23 09:30 05/15/23 09:40 Temperature 99.1 F 99.3 F 99.3 F Pulse Rate 92 H 92 H 92 H Respiratory Rate Blood Pressure Pulse Oximetry 97 97 99 05/15/23 09:50 05/15/23 10:00 05/15/23 10:10 Temperature 99.3 F 99.5 F 99.5 F Pulse Rate 92 H 95 H 94 H Respiratory Rate Blood Pressure Pulse Oximetry 97 97 97 05/15/23 10:20 05/15/23 10:30 05/15/23 10:40 Temperature 99.5 F 99.5 F 99.5 F Pulse Rate 94 H 94 H 94 H Respiratory Rate Blood Pressure Pulse Oximetry 97 96 96 05/15/23 10:50 05/15/23 11:00 05/15/23 11:10 Temperature 99.7 F H 99.7 F H 99.7 F H Pulse Rate 93 H 94 H 94 H Respiratory Rate Blood Pressure Pulse Oximetry 96 97 97 05/15/23 11:20 05/15/23 11:30 05/15/23 11:40 Temperature 99.7 F H 99.7 F H 99.9 F H Pulse Rate 107 H 102 H 98 H Respiratory Rate Blood Pressure Pulse Oximetry 98 99 96 05/15/23 11:50 05/15/23 11:54 05/15/23 11:54 Temperature 99.9 F H 99.9 F H Pulse Rate 97 H 98 H Respiratory Rate Blood Pressure 133/63 Pulse Oximetry 98 98 05/15/23 12:00 05/15/23 12:10 05/15/23 12:11 Temperature 100.0 F H 98.8 F Pulse Rate 98 H 91 H Respiratory Rate 22 Blood Pressure 133/63 Pulse Oximetry 98 99 05/15/23 12:20 05/15/23 12:30 05/15/23 12:40 Temperature Pulse Rate 100 H 105 H 98 H Respiratory Rate Blood Pressure Pulse Oximetry 97 96 98 05/15/23 12:50 05/15/23 13:00 05/15/23 13:10 Temperature Pulse Rate 97 H 98 H 99 H Respiratory Rate Blood Pressure Pulse Oximetry 98 96 97 05/15/23 13:20 05/15/23 13:30 05/15/23 13:40 Temperature Pulse Rate 99 H 99 H 98 H Respiratory Rate Blood Pressure Pulse Oximetry 97 96 97 05/15/23 13:50 05/15/23 14:00 05/15/23 14:10 Temperature Pulse Rate 103 H 106 H 106 H Respiratory Rate Blood Pressure Pulse Oximetry 99 99 99 05/15/23 14:20 05/15/23 14:30 05/15/23 14:40 Temperature Pulse Rate 100 H 102 H 99 H Respiratory Rate Blood Pressure Pulse Oximetry 98 97 95 05/15/23 14:50 05/15/23 15:00 05/15/23 15:10 Temperature Pulse Rate 103 H 100 H 101 H Respiratory Rate Blood Pressure Pulse Oximetry 95 97 94 05/15/23 15:20 05/15/23 15:30 05/15/23 15:40 Temperature Pulse Rate 103 H 101 H 102 H Respiratory Rate Blood Pressure Pulse Oximetry 95 96 97 05/15/23 15:50 05/15/23 15:55 05/15/23 15:55 Temperature Pulse Rate 103 H 103 H Respiratory Rate Blood Pressure 139/64 Pulse Oximetry 97 99 05/15/23 16:00 Temperature 97.8 F Pulse Rate 101 H Respiratory Rate 22 Blood Pressure 139/64 Pulse Oximetry 96 Oxygen Delivery Method Room Air Oxygen Flow Rate 0 Narrative Exam Narrative: NAD, alert and oriented, fluent speech, calm. Odd affect. He appears moderately ill but in no distress. Normocephalic skull, EOMI, anicteric sclera, symmetric pupils. Oropharynx unremarkable, no droop. Neck supple, midline trachea, no adenopathy. Lungs clear, normal rate and effort. Heart regular, no murmur gallop or rub. Abdomen is soft, non distended and non tender. Extremities are free of edema. Skin is free of rash or lesions. Joints are not swollen or deformed. Judgment appears to be abnormal. He has a large area of redness and induration over his R scapula. This is about the size of an extended palm. He is tender to touch. Appears to have some fluctuance today with possible coalescing abscess. Objective Labs 05/15/23 05:55 05/15/23 05:55 Labs: Laboratory Results - last 24 hr 05/14/23 05/14/23 05/14/23 15:11 17:26 18:45 WBC RBC Hgb Hct MCV MCH MCHC RDW Plt Count Neut % (Auto) Lymph % (Auto) [place] % (Auto) Eos % (Auto) Baso % (Auto) Lymph # (Auto) [place] # (Auto) Baso # (Auto) Total Counted Seg Neutrophils % Band Neutrophils % Lymphocytes % (Manual) Monocytes % (Manual) Basophils % (Manual) Neutrophils # (Manual) Platelet Estimate RBC Morphology Sodium Potassium Chloride Carbon Dioxide BUN Creatinine Estimated GFR BUN/Creatinine Ratio Glucose Hemoglobin A1c 11.7 H Lactate 2.1 Calcium Nasal Screen MRSA (PCR) Not detected 05/15/23 05:55 WBC 37.2 H* RBC 4.74 Hgb 14.5 Hct 42.1 MCV 88.8 MCH 30.5 MCHC 34.4 RDW 13.2 Plt Count 363 Neut % (Auto) Not Reportable Lymph % (Auto) Not Reportable [place] % (Auto) Not Reportable Eos % (Auto) Not Reportable Baso % (Auto) Not Reportable Lymph # (Auto) Not Reportable [place] # (Auto) Not Reportable Baso # (Auto) Not Reportable Total Counted 100 Seg Neutrophils % 51.0 Band Neutrophils % 36.0 H Lymphocytes % (Manual) 4.0 L Monocytes % (Manual) 8.0 Basophils % (Manual) 1.0 Neutrophils # (Manual) 67788 H Platelet Estimate Adequate on smear RBC Morphology Normal morphology Sodium 129 L Potassium 3.6 Chloride 101 Carbon Dioxide 20 L BUN 26 H Creatinine 0.89 Estimated GFR > 60 BUN/Creatinine Ratio 29.2 H Glucose 383 H Hemoglobin A1c Lactate Calcium 7.7 L Nasal Screen MRSA (PCR) [facility] Social History household members: none Smoking Status: Never smoker alcohol intake: never Assessment & Plan Assessment & Plan narrative: 1. Posterior thorax severe cellulitis with probable abscess, present on admission and active. 2. Severe sepsis ruled out. SOFA score is <2. 3. Lactic acidosis, present on admission and active. 4. Hyponatremia which is likely hypovolemic, present on admission and active. 5. Type 2 diabetes, uncontrolled. Possible mild DKA on presentation. Plan: -patient received sepsis bolus of 30 ml/kilogram and we will follow with saline at a rate of 150. Will reduce fluid to 75 cc, discontinue rivas today. -downgraded to the regular floor today. Patient with SOFA score <2, sepsis ruled out. -cultures without offending organism, collection does appear to be coalescing and have asked surgery for consultation for possible I&D, discussed with surgeon leasing sales consultant today. -continue broad-spectrum antibiotics with cefepime and vancomycin. -trend lactic acid per sepsis protocol. -A1c is >11, started on lantus this morning. On presentation he had an anion gap of 15, with markedly elevated glucose. Got IV fluids and some sliding scale insulin with improvement. Possible this represented DKA. Gap has closed today on AM labs anyway, start lantus 15U daily and continue sliding scale and will continue to monitor glucose levels. Will likely need to discharge home on insulin. Patient was full resuscitation. No proxy for healthcare decisions, does not wish to designate one at this time. Time Spent With Patient Time with patient: 30 to 49 minutes with 50% spent counseling/coordinating care Quality VTE Deep Vein Thrombosis/Pulmonary Embolism Present on Admission: No
--- NOTE | 2023-05-15 18:35 | PM.CALLCOV.1 ---
Call Coverage Note Note Date of Patient Contact: 05/15/23 Narrative of Care Provided: Will reevaluate in am for I and D bedside vs OR.
--- NOTE | 2023-05-15 18:38 | PC.NURSE ---
Patient transferred from room 229 to Room 215 after dinner at approximately 1740 this evening. He is alert oriented x4, disheveled. IV antibiotics Cefepime completed, and Vancomycin hung as scheduled. Per Report from DIABETOLOGIST patient had rivas catheter removed shortly prior to lunch approximately noon (with resistance and discomfort) and had not yet voided. Bladder scan results = 403ml at 1830 and MD notified. Per hospitalist wait x2 more hours prior to straight cath. Patient declined SCD's stating minimal feeling to legs, when educated about DVT prevention he refused stating the noise of the machine will keep me awake. Redness surrounding R shoulder wound mepilex C/D/I. When asked patient what level his pain scale was from 1-10 he stated It's pretty good right now. I would say about an 8. RN educated patient about the pain scale intensities and he replied When I first arrived here, my pain level was not even on the scale. Continuous monitoring.
[2023-05-16] VITALS (12 sets, daily range): BP systolic 79–149; BP diastolic 46–78; PULSE 81–103; RESP 16–22; TEMP 35.8–37; O2SAT 94–98; BMI 36.6
--- NOTE | 2023-05-16 00:40 | PC.NURSE ---
This RN informed patient of potential need to bladder scan and straight cath if pt is unable to void per MD order. Patient states I would rather than have a catheter put in me again. Patient told this RN that he was unable to urinate and would only do so if he was 75% full. This RN asked if he felt the urge to urinate, patient said no, but was willing to make an attempt. Patient anatomy made use of urinal difficult while lying down or sitting at edge of bed. Patient able to stand at bedside and voided approx 850 mL clear dark yellow urine. Patient reports inability to move arms. Patient demonstrated this by wiggling his arms. Patient able to pull self up in bed and stand with minimal assistance. Able to hold on to walker without difficulty. Patient informs RN that he normally has severe numbness in his feet but does not have it since being admitted into the hospital. Patient states to this RN that he can feel his organs shutting down. This RN asked how he can feel that, and pt states It's because I need to poop, I shit when my organs start to fail. Patient did not endorse needing to defecate at this time.
[2023-05-16] MEDS: SODIUM CHLORIDE 0.45% 1,000 ML 75 ML IV (05:49)
[2023-05-16] MEDS: CEFEPIME 2 GM in SODIUM CHLORIDE 0.9% 100 ML IV (05:50)
[2023-05-16 05:53] LABS: Hematocrit 41.4 % (41-53); Hemoglobin 14.1 g/dL (13.5-17.5); Mean Corpuscular HGB Conc 34.1 % (30-36); Mean Corpuscular Hemoglobin 30.2 PG (26-34); Mean Corpuscular Volume 88.5 fL (80-100); Platelet Count 409 X10^3/uL (150-400); Red Blood Cell Count 4.67 X10^6/uL (4.5-5.9)
[2023-05-16 05:54] LABS: Add Manual Diff / Slide Review YES
[2023-05-16 05:56] LABS: White Blood Cell Count 37.4 X10^3/uL (4.5-11.0)
[2023-05-16 06:06] LABS: Alanine Aminotransferase 29 IU/L (<50); Albumin 2.7 g/dL (3.5-5.0); Albumin Globulin Ratio 0.8 (1.0-2.8); Alkaline Phosphatase 168 U/L (38-126); Aspartate Aminotransferase 37 IU/L (17-59); BUN Creatinine Ratio 20.9 (6-22); Bilirubin Total 0.5 mg/dL (0.2-1.3); Blood Urea Nitrogen 19 mg/dL (9-20); Calcium 7.7 mg/dL (8.4-10.2); Carbon Dioxide 20 mmol/L (22-32); Chloride 100 mmol/L (98-107); Estimated Glomerular Filt Rate > 60 mL/min (>60); Globulin 3.3 g/dL (1.7-4.1); Glucose 319 mg/dL (70-100); HEMOLYSIS < 15 (0-50); Potassium 3.6 mmol/L (3.4-5.1); Sodium 127 mmol/L (137-145)
[2023-05-16 06:30] LABS: Vancomycin Trough 8.5 ug/mL (10-20)
[2023-05-16 06:31] LABS: Neutrophils Absolute Manual 33286 /uL (3000-5900); Nucleated Red Blood Cells 1 #/Diff; Total Cells Counted 100
[2023-05-16 06:32] LABS: Platelet Estimate Increased on smear; RBC Morphology Normal Morphology
[2023-05-16] MEDS: VANCOMYCIN TROUGH 1 REQUEST MISC (06:53)
[2023-05-16] MEDS: VANCOMYCIN 1,500 MG/300 ML PIGGYBACK 200 MG IV ×2 (06:57→18:56)
--- NOTE | 2023-05-16 07:12 | PM.CALLCOV.1 ---
Call Coverage Note Note Date of Patient Contact: 05/16/23 Narrative of Care Provided: Estimated OR time of 3pm.
[2023-05-16] MEDS: INSULIN LISPRO 100 UNIT/ML 3ML VIAL SUBCUT ×4 (07:52→20:38)
[2023-05-16] MEDS: INSULIN GLARGINE 100 UNIT/ML 3ML PEN 20 UNIT SUBCUT ×2 (07:56→20:38)
[2023-05-16] MEDS: CEFAZOLIN 2 GM/100 ML PREMIX 100 ML IV ×3 (08:29→23:54)
[2023-05-16] MEDS: VANCOMYCIN PEAK 1 REQUEST MISC (10:30)
[2023-05-16 10:57] LABS: Vancomycin Peak 25.3 ug/mL (20-40)
--- NOTE | 2023-05-16 12:25 | P.PN_ITS ---
Subjective Subjective Interval history: 47 M admitted with a R back cellulitis. Pain continues today, but improved. Appears to be coalescing into an abscess, plan for I&D today at 3pm. Exam Vital Signs (past 8 hours): - 05/16/23 08:00 Temperature 97.6 F Pulse Rate 99 H Respiratory Rate 18 Blood Pressure 149/78 H Pulse Oximetry 96 Oxygen Flow Rate 0 Oxygen Delivery Method Room Air Oxygen Flow Rate 0 Narrative Exam Narrative: NAD, alert and oriented, fluent speech, calm. Odd affect. He appears moderately ill but in no distress. Normocephalic skull, EOMI, anicteric sclera, symmetric pupils. Oropharynx unremarkable, no droop. Neck supple, midline trachea, no adenopathy. Lungs clear, normal rate and effort. Heart regular, no murmur gallop or rub. Abdomen is soft, non distended and non tender. Extremities are free of edema. Skin is free of rash or lesions. Joints are not swollen or deformed. Judgment appears to be abnormal. He has a large area of redness and induration over his R scapula. This is about the size of an extended palm. He is tender to touch. Appears to have some fluctuance today with possible coalescing abscess. Objective Labs 05/16/23 05:35 05/16/23 05:35 Labs: Laboratory Results - last 24 hr 05/16/23 05/16/23 05:35 09:35 WBC 37.4 H* RBC 4.67 Hgb 14.1 Hct 41.4 MCV 88.5 MCH 30.2 MCHC 34.1 RDW 13.0 Plt Count 409 H Neut % (Auto) Not Reportable Lymph % (Auto) Not Reportable [place] % (Auto) Not Reportable Eos % (Auto) Not Reportable Baso % (Auto) Not Reportable Lymph # (Auto) Not Reportable [place] # (Auto) Not Reportable Baso # (Auto) Not Reportable Total Counted 100 Seg Neutrophils % 57.0 Band Neutrophils % 32.0 H Lymphocytes % (Manual) 4.0 L Monocytes % (Manual) 7.0 Neutrophils # (Manual) 11826 H Nucleated RBCs 1 H Platelet Estimate Increased on smear RBC Morphology Normal morphology Sodium 127 L Potassium 3.6 Chloride 100 Carbon Dioxide 20 L BUN 19 Creatinine 0.91 Estimated GFR > 60 BUN/Creatinine Ratio 20.9 Glucose 319 H Calcium 7.7 L Total Bilirubin 0.5 AST 37 ALT 29 Alkaline Phosphatase 168 H Total Protein 6.0 L Albumin 2.7 L Globulin 3.3 Albumin/Globulin Ratio 0.8 L Vancomycin Peak 25.3 Vancomycin Trough 8.5 L PFSH Social History household members: none Smoking Status: Never smoker alcohol intake: never Assessment & Plan Assessment & Plan narrative: 1. Posterior thorax severe cellulitis with abscess, present on admission and active. 2. Severe sepsis ruled out. SOFA score is <2. 3. Lactic acidosis, present on admission and active. 4. Hyponatremia which is likely hypovolemic, present on admission and active. 5. Type 2 diabetes, uncontrolled. Possible mild DKA on presentation. Plan: -patient received sepsis bolus of 30 ml/kilogram and we will follow with saline at a rate of 150. Continue fluids with NPO today, can stop after OR. -downgraded to the regular floor today. Patient with SOFA score <2, sepsis ruled out. -cultures initially with MSSA, changed cefepime to cefazolin today, will keep vanco pending OR cultures. -trend lactic acid per sepsis protocol. -A1c is >11, started on lantus but glucose still high. Will increase to 20 U BID. Got IV fluids and some sliding scale insulin with improvement initially. Possible this represented DKA. Gap has closed on labs. continue sliding scale and will continue to monitor glucose levels. Will likely need to discharge home on insulin. -discussed with surgeon today regarding plans for OR. Patient was full resuscitation. No proxy for healthcare decisions, does not wish to designate one at this time. Time Spent With Patient Time with patient: 30 to 49 minutes with 50% spent counseling/coordinating care Quality VTE Deep Vein Thrombosis/Pulmonary Embolism Present on Admission: No
--- NOTE | 2023-05-16 12:33 | DIET.CONS ---
Dietary Consultation Note Admission Date: 05/14/2023 17:47 Assessment: 47 y M admitted with back cellulitis. Nutrition consulted for low MNA score. Nutrition screened for new dx of DM. Met with pt at bedside. Pt reports no food or fluid intake for 3 days prior to hospitalization while he was unconscious on floor from wasp sting. Pt had normal appetite and PO intake before wasp sting and currently has normal appetite with adequate PO intakes yesterday. Unsure of usual body weight. No weight hx available. Pt does not believe he is actually diabetic. Reports mother was diabetic and he cared for her. He reports not believing in medication outside of life saving medications in hospital. Pt has difficulty affording nutritional foods due to finances. He eats food that is high in volume due to needing to satisfy his hunger. Dietary recall: B-Pasta L-Pasta D-Frozen meal Snacks: chocolate, Teacher Private cakes/desserts, chips Beverages: reported 4 L of tea, each liter sweetened with 2/3 cup of sugar daily. Ht: 177.8 cm Wt: 116 kg BMI: 36.6 UBW: limited hx, pt unsure Last BM: () MNA: 8 [place]is Score: 20 Diet: 05/16/23 00:01 NPO Diet Diet Modifications: NPO Type: NPO after Midnight Nutrition Percent Meal Consumed 100% 05/15/23 18:00 Percent Meal Consumed 75% 05/15/23 13:24 Percent Meal Consumed 75% 05/15/23 09:29 Labs: RBC 4.67 X10^6/uL (4.5-5.9) 05/16/23 05:35 Hgb 14.1 g/dL (13.5-17.5) 05/16/23 05:35 Hct 41.4 % (41-53) 05/16/23 05:35 Creatinine 0.91 mg/dL (0.66-1.25) 05/16/23 05:35 Hemoglobin A1c 11.7 % (4.0-6.0) H 05/14/23 15:11 Lactate 2.1 mmol/L (0.7-2.1) 05/14/23 17:26 Nutrition Diagnosis: Nutrition related knowledge deficit r/t to new DM dx as evidenced by pt report Interventions: 1. Provided MNT on DM based on pt's beliefs and situation. -Pt willing to drink water in the morning and reduce consumption of sugar sweetened beverages to help with BG. 2. EQUIPMENT OPERATOR/LABORER helping pt with safe discharge that meets needs 3. Encouraged adequate protein intake. Discussed low cost high protein options. EER: 5431-1602 kcals/day (15 kcals/kg) 80-90 g protein (1 g/kg of adjusted IBW) Monitoring/Evaluations: PO intake, f/u prn Electronically Signed by: Sruthi Solomon 05/16/23 12:33 Clinical Dietitian [address] [id number]
--- NOTE | 2023-05-16 16:32 | P.CONS_ITS ---
History of Present Illness Consult details Date Patient Seen: 05/16/23 Time Patient Seen: 16:33 Chief complaint: Wasp sting Reason for consult: Posterior right shoulder abscess Requesting provider: Brian Ding Narrative: Presented with sepsis, hyperglycemia and posterior right shoulder cellulitis/abscess. Believes it to be from a wasp sting. Meds Home Medications and Allergies Home Medications Medication Instructions Recorded Confirmed Type No Known Home Medications 05/14/23 05/14/23 History Allergies Allergy/AdvReac Type Severity Reaction Status Date / Time Penicillins Allergy Severe Anaphylaxis Verified 05/15/23 10:41 azithromycin Allergy Unknown Verified 05/14/23 15:08 Review of Systems Review of Systems ROS: Yes All systems reviewed with the patient and are negative except as otherwise documented Exam Vital Signs (past 8 hours): - 05/16/23 12:00 Temperature 97.9 F Pulse Rate 94 H Respiratory Rate 18 Blood Pressure 137/75 Pulse Oximetry 97 Oxygen Flow Rate 0 Oxygen Delivery Method Room Air Oxygen Flow Rate 0 Narrative Exam Narrative: See chief complaint Const General: cooperative, disheveled and lethargic Nutritional Appearance: overweight HENMT Head: normocephalic and atraumatic Ears: hearing grossly normal bilaterally Eyes Sclera: sclerae normal Neck Neck: trachea midline Resp Effort & Inspection: normal respiratory effort and able to speak in complete sentences Cardio Rate: regular rate Rhythm: regular rhythm GI Palpation: soft and No tender Skin Other: posterior right shoulder abscess Neuro Cognition: normal cognition Speech: speech normal Psych Judgment: judgment good Objective Labs 05/16/23 05:35 05/16/23 05:35 Labs: Laboratory Results - last 24 hr 05/16/23 05/16/23 05:35 09:35 WBC 37.4 H* RBC 4.67 Hgb 14.1 Hct 41.4 MCV 88.5 MCH 30.2 MCHC 34.1 RDW 13.0 Plt Count 409 H Neut % (Auto) Not Reportable Lymph % (Auto) Not Reportable [place] % (Auto) Not Reportable Eos % (Auto) Not Reportable Baso % (Auto) Not Reportable Lymph # (Auto) Not Reportable [place] # (Auto) Not Reportable Baso # (Auto) Not Reportable Total Counted 100 Seg Neutrophils % 57.0 Band Neutrophils % 32.0 H Lymphocytes % (Manual) 4.0 L Monocytes % (Manual) 7.0 Neutrophils # (Manual) 92696 H Nucleated RBCs 1 H Platelet Estimate Increased on smear RBC Morphology Normal morphology Sodium 127 L Potassium 3.6 Chloride 100 Carbon Dioxide 20 L BUN 19 Creatinine 0.91 Estimated GFR > 60 BUN/Creatinine Ratio 20.9 Glucose 319 H Calcium 7.7 L Total Bilirubin 0.5 AST 37 ALT 29 Alkaline Phosphatase 168 H Total Protein 6.0 L Albumin 2.7 L Globulin 3.3 Albumin/Globulin Ratio 0.8 L Vancomycin Peak 25.3 Vancomycin Trough 8.5 L PFSH Social History household members: none Tobacco & Substance Use Smoking Status: Never smoker alcohol intake: never Assessment & Plan Assessment & Plan narrative: Right posterior shoulder abscess sepsis hyperglycemia obesity Plan: I and d of shoulder abscess.
[2023-05-16] MEDS: LACTATED RINGERS 1,000 ML 42 ML IV (17:12)
--- NOTE | 2023-05-16 17:32 | SUR.OPER ---
Lateral on a mejia bag, head on pillow, gel axillary roll in place, bottom leg bent with gel pad under knee to foot, upper leg straight and supported with pillows. Upper arm supported by pillows and secured over bottom arm to padded arm board. Safety belt at hip, tape over blanket lower legs.
--- NOTE | 2023-05-16 17:47 | PM.OP.1 ---
Operative Date/Time/Diagnoses Date of procedure: 05/16/23 Time of procedure: 17:47 Pre-op diagnosis: Preop diagnosis: Right posterior shoulder abscess Post-op diagnosis: same Procedure & Clinicians Procedure: I and D of right posterior shoulder abscess Same procedure as scheduled: Yes Indications: Sepsis Surgeon: Maria Dolores Jarrell Click Yes if Unassisted: Yes Anesthesia Type: General Operative Notes Findings: Abscess going down into the muscle of the right posterior shoulder. Baseball size cavity. Unusual findings of subcutaneous tissue engorged with purulent material. Closure Type: not applicable Specimen(s): other (Abscess culture) Applied: drain(s) (Quarter-inch Marie drain) Estimated Blood Loss (mL): 50 Procedure in detail: Preop diagnosis: Right posterior shoulder abscess Postop diagnosis: Same Operative procedure: I and D of right posterior shoulder abscess Surgeon: Vandana Jarrell MD Anesthetic: General with ET tube intubation Findings: Right posterior shoulder abscess Procedure: Patient placed in a lateral position. Incision was created over area of abscess with a counter incision in a more cephalad position so that a quarter-inch Marie drain could be fed between the tube to stent the area open. Pus was evacuated manually. Hemostasis was achieved with direct pressure. Cultures were taken of the abscess Dry dressings placed across the wound and drain. Patient was awakened, extubated, taken to recovery room in stable condition. Needle, instrument, sponge counts were correct. Specimen: Abscess culture Blood loss: 50 mL Complications: none Post-operative Condition: stable Disposition: PACU
--- NOTE | 2023-05-16 18:09 | PC.NURSE ---
Patient taken to Preop via bed by Preop RN's at approximately 1620
[2023-05-16] MEDS: SODIUM CHLORIDE 0.9% 1,000 ML 75 ML IV (18:17)
--- NOTE | 2023-05-16 19:36 | PC.NURSE ---
Patient returned from PACU at approximately 1820 Alert, coughing consistently with dry cough. He reports nausea and throat irritation and is severely diaphoretic. BG 294 and SSI administered. Post op VS showed 76/49 and MD Jarrell notified. Per orders 500cc bolus administered, and IVF NS increased to 100 ml/hr. He declines wanting prn anti emetic, but reports his eyes are playing tetris and feels like the ceiling tiles are moving MD Jarrell also ordered scopalamine patch x1. Bed alarm on, call light in reach, continuous monitoring. Upon recheck BP 107/60 HR 80's
[2023-05-16] MEDS: SODIUM CHLORIDE 0.9% 1,000 ML 1000 ML IV (20:30)
[2023-05-16] MEDS: HEPARIN 5,000 UNIT/ML VIAL 5000 UNIT SUBCUT (20:35)
[2023-05-17 03:32] VITALS: BP 109/67; PULSE 84; RESP 18; TEMP 36.6; O2SAT 97
[2023-05-17] MEDS: VANCOMYCIN 1,500 MG/300 ML PIGGYBACK 200 MG IV (05:58)
[2023-05-17 06:33] LABS: Alanine Aminotransferase 27 IU/L (<50); Albumin 2.4 g/dL (3.5-5.0); Albumin Globulin Ratio 0.8 (1.0-2.8); Alkaline Phosphatase 168 U/L (38-126); Aspartate Aminotransferase 43 IU/L (17-59); BUN Creatinine Ratio 22.1 (6-22); Bilirubin Total 0.4 mg/dL (0.2-1.3); Blood Urea Nitrogen 17 mg/dL (9-20); Calcium 7.5 mg/dL (8.4-10.2); Carbon Dioxide 22 mmol/L (22-32); Chloride 106 mmol/L (98-107); Estimated Glomerular Filt Rate > 60 mL/min (>60); Globulin 3.2 g/dL (1.7-4.1); Glucose 187 mg/dL (70-100); HEMOLYSIS < 15 (0-50); Sodium 134 mmol/L (137-145); Total Protein 5.6 g/dL (6.3-8.2)
[2023-05-17 06:47] LABS: Hemoglobin 13.2 g/dL (13.5-17.5); Mean Corpuscular HGB Conc 33.9 % (30-36); Mean Corpuscular Hemoglobin 29.9 PG (26-34); Mean Corpuscular Volume 88.3 fL (80-100); Platelet Count 392 X10^3/uL (150-400); Red Blood Cell Count 4.42 X10^6/uL (4.5-5.9); Red Cell Distribution Width 13.3 % (11.6-14.8)
[2023-05-17 06:56] LABS: Add Manual Diff / Slide Review YES
[2023-05-17 06:57] LABS: White Blood Cell Count 30.2 X10^3/uL (4.5-11.0)
[2023-05-17 08:00] VITALS: BP 105/62; PULSE 89; RESP 16; TEMP 36.2; O2SAT 99
[2023-05-17] MEDS: INSULIN LISPRO 100 UNIT/ML 3ML VIAL SUBCUT ×4 (08:50→21:17)
[2023-05-17] MEDS: CEFAZOLIN 2 GM/100 ML PREMIX 100 ML IV ×2 (08:50→14:43)
[2023-05-17] MEDS: INSULIN GLARGINE 100 UNIT/ML 3ML PEN 20 UNIT SUBCUT (08:51)
[2023-05-17] MEDS: POTASSIUM CHLORIDE 20 MEQ TAB 40 MEQ PO ×2 (08:52→13:15)
[2023-05-17] MEDS: HEPARIN 5,000 UNIT/ML VIAL 5000 UNIT SUBCUT ×2 (08:54→21:16)
[2023-05-17 09:16] LABS: Neutrophils Absolute Manual 23858 /uL (3000-5900); Total Cells Counted 100
[2023-05-17 09:17] LABS: RBC Morphology Normal Morphology
[2023-05-17 09:42] VITALS: BP 105/62; PULSE 89; RESP 16; TEMP 36.2; O2SAT 99
[2023-05-17 12:00] VITALS: BP 121/76; PULSE 85; RESP 16; TEMP 36.2; O2SAT 98
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
--- NOTE | 2023-05-17 15:05 | P.PN_ITS ---
Subjective Subjective Interval history: 47 M admitted with a R back cellulitis, s/p I&D yesterday with surgery. Pain is much improved today, continues to have some drainage from his back. Exam Vital Signs (past 8 hours): - 05/17/23 08:00 05/17/23 09:42 05/17/23 12:00 Temperature 97.1 F L 97.1 F L 97.2 F L Pulse Rate 89 89 85 Respiratory Rate 16 16 16 Blood Pressure 105/62 105/62 121/76 Pulse Oximetry 99 99 98 Oxygen Delivery Method Room Air Oxygen Flow Rate 0 Narrative Exam Narrative: NAD, alert and oriented, fluent speech, calm. Odd affect. He appears moderately ill but in no distress. Normocephalic skull, EOMI, anicteric sclera, symmetric pupils. Oropharynx unremarkable, no droop. Neck supple, midline trachea, no adenopathy. Lungs clear, normal rate and effort. Heart regular, no murmur gallop or rub. Abdomen is soft, non distended and non tender. Extremities are free of edema. Skin is free of rash or lesions. Joints are not swollen or deformed. Judgment appears to be abnormal. Left back dressing has serosanguinous drainage, much improved surrounding erythema Objective Labs 05/17/23 04:55 05/17/23 04:55 Labs: Laboratory Results - last 24 hr 05/17/23 04:55 WBC 30.2 H* RBC 4.42 L Hgb 13.2 L Hct 39.0 L MCV 88.3 MCH 29.9 MCHC 33.9 RDW 13.3 Plt Count 392 Neut % (Auto) Not Reportable Lymph % (Auto) Not Reportable [place] % (Auto) Not Reportable Eos % (Auto) Not Reportable Baso % (Auto) Not Reportable Lymph # (Auto) Not Reportable [place] # (Auto) Not Reportable Baso # (Auto) Not Reportable Total Counted 100 Seg Neutrophils % 75.0 H Band Neutrophils % 4.0 Lymphocytes % (Manual) 14.0 L Monocytes % (Manual) 5.0 Eosinophils % (Manual) 2.0 Neutrophils # (Manual) 27361 H RBC Morphology Normal morphology Sodium 134 L Potassium 3.0 L Chloride 106 Carbon Dioxide 22 BUN 17 Creatinine 0.77 Estimated GFR > 60 BUN/Creatinine Ratio 22.1 H Glucose 187 H D Calcium 7.5 L Total Bilirubin 0.4 AST 43 ALT 27 Alkaline Phosphatase 168 H Total Protein 5.6 L Albumin 2.4 L Globulin 3.2 Albumin/Globulin Ratio 0.8 L [facility] Social History household members: none Smoking Status: Never smoker alcohol intake: never Assessment & Plan Assessment & Plan narrative: 1. Posterior thorax severe cellulitis with abscess, present on admission and active. 2. Severe sepsis ruled out. SOFA score is <2. 3. Lactic acidosis, present on admission and active. 4. Hyponatremia which is likely hypovolemic, present on admission and active. 5. Type 2 diabetes, uncontrolled. Possible mild DKA on presentation. Plan: -patient received sepsis bolus of 30 ml/kilogram and IV fluids were continued. Okay to stop today. -downgraded to the regular floor. Patient with SOFA score <2, sepsis ruled out. -cultures initially with MSSA, changed cefepime to cefazolin, will keep vanco pending OR cultures which are still pending. -A1c is >11, started on lantus but glucose still high but much improved from 180-low 200s today. Will increase further to 23 U BID. Got IV fluids and some sliding scale insulin with improvement initially. Possible this represented DKA. Gap has closed on labs. continue sliding scale and will continue to monitor glucose levels. Will likely need to discharge home on insulin. -continue local wound care -OT assessment for patient's left shoulder, they have signed off but recommended PT given he reports decreased mobility from baseline. Patient was full resuscitation. No proxy for healthcare decisions, does not wish to designate one at this time. Dispo: Plan for possible SNF? case management evaluating options. Discussed with case managment, occupational therapist to contribute to the above history, assessment and plan. Time Spent With Patient Time with patient: 30 to 49 minutes with 50% spent counseling/coordinating care Quality VTE Deep Vein Thrombosis/Pulmonary Embolism Present on Admission: No
--- NOTE | 2023-05-17 15:18 | CM.DPC ---
DCP Cont. Reviewed EMR and team rounds for status updates. PAVING PLANT OPERATOR provided the Medicaid LTC application for pt to complete, he will need assistance over the weekend with completing this. Pt would like SNF rehab, we have not yet made a referral, he could also go home with Home Health for woundcare and PT. Cont. to monitor his improvement in the next 1-2 days for final d/c plan and disposition.
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
--- NOTE | 2023-05-17 16:16 | PC.NURSE ---
Day shift: A&Ox4. Calm and cooperative with care today. OOB w/ 1 person assist w/ FWW to BR. Makes needs known proper. Not impulsive as well. Does report 5/10 pain in his back at the I&D site. He did not want anything for pain today at this time. BP better now 121/76. Eating today without issue. Blood glucose ok w/ last being 218 at lunch time. Is hopeful to go to SNF after this admit.
[2023-05-17 17:00] VITALS: BP 108/61; PULSE 85; RESP 16; TEMP 36.4; O2SAT 98
[2023-05-17] MEDS: VANCOMYCIN 1,750 MG in SODIUM CHLORIDE 0.9% 500 ML 250 MG IV (17:23)
[2023-05-17 18:16] LABS: HEMOLYSIS < 15 (0-50); Potassium 3.7 mmol/L (3.4-5.1)
[2023-05-17 20:00] VITALS: BP 113/67; PULSE 86; RESP 16; TEMP 36.3; O2SAT 97
[2023-05-17] MEDS: INSULIN GLARGINE 100 UNIT/ML 3ML PEN 23 UNIT SUBCUT (21:16)
[2023-05-17] MEDS: SODIUM CHLORIDE 0.9% FLUSH 10 ML IV (21:19)
[2023-05-18] MEDS: CEFAZOLIN 2 GM/100 ML PREMIX 100 ML IV ×3 (00:36→14:56)
[2023-05-18] MEDS: OXYCODONE IR 5 MG TABLET PO (01:32)
[2023-05-18] MEDS: ACETAMINOPHEN 325 MG TABLET 650 MG PO (01:32)
[2023-05-18 02:00] VITALS: BP 110/60; PULSE 79; RESP 16; TEMP 36.7; O2SAT 96
[2023-05-18] MEDS: VANCOMYCIN 1,750 MG in SODIUM CHLORIDE 0.9% 500 ML 250 MG IV ×2 (05:52→17:02)
[2023-05-18 06:00] VITALS: BP 126/60; PULSE 80; RESP 17; TEMP 36.4; O2SAT 96
[2023-05-18 06:53] LABS: Hematocrit 38.1 % (41-53); Hemoglobin 12.8 g/dL (13.5-17.5); Mean Corpuscular HGB Conc 33.7 % (30-36); Mean Corpuscular Hemoglobin 30.1 PG (26-34); Mean Corpuscular Volume 89.1 fL (80-100); Platelet Count 391 X10^3/uL (150-400); Red Blood Cell Count 4.27 X10^6/uL (4.5-5.9); Red Cell Distribution Width 13.4 % (11.6-14.8)
[2023-05-18 06:55] LABS: Add Manual Diff / Slide Review YES
[2023-05-18 07:04] LABS: Alanine Aminotransferase 41 IU/L (<50); Albumin 2.4 g/dL (3.5-5.0); Albumin Globulin Ratio 0.7 (1.0-2.8); Alkaline Phosphatase 130 U/L (38-126); Aspartate Aminotransferase 59 IU/L (17-59); BUN Creatinine Ratio 19.4 (6-22); Bilirubin Total 0.3 mg/dL (0.2-1.3); Blood Urea Nitrogen 14 mg/dL (9-20); Calcium 7.6 mg/dL (8.4-10.2); Carbon Dioxide 24 mmol/L (22-32); Chloride 110 mmol/L (98-107); Estimated Glomerular Filt Rate > 60 mL/min (>60); Globulin 3.3 g/dL (1.7-4.1); Glucose 213 mg/dL (70-100); HEMOLYSIS < 15 (0-50); Potassium 3.6 mmol/L (3.4-5.1); Sodium 136 mmol/L (137-145); Total Protein 5.7 g/dL (6.3-8.2)
--- NOTE | 2023-05-18 07:09 | PM.CALLCOV.1 ---
Call Coverage Note Note Date of Patient Contact: 05/18/23 Narrative of Care Provided: Chart rounding. resolving WBC. Wound shower daily with wound open and use dry dressing daily and PRN. [place] drain to stay for 5 days
[2023-05-18 07:26] LABS: Neutrophils Absolute Manual 13500 /uL (3000-5900); Nucleated Red Blood Cells 1 #/Diff; Total Cells Counted 100
[2023-05-18 07:27] LABS: RBC Morphology Normal Morphology
--- NOTE | 2023-05-18 08:05 | PM.PN.1 ---
Subjective Subjective Date Patient Seen: 05/18/23 Interval history: He is seen in his room here today to follow-up his right shoulder/upper back abscess, his diabetes mellitus and his homelessness. He says that a wasp sting started the infection on the right upper back. He had an incision and drainage procedure a few days ago. The area still looks quite red and infected, draining pus. He has a Marie drain in it to keep it open. He tells me that he is essentially homeless, living on his own in his small travel trailer without many visitors or assistance. 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 His white blood count was 18.0 and his A1c was 11.7. His abscess is growing MSSA. He is likely to need placement at a fdc facility but has the type of insurance that will make that a challenge. We will be changing his lispro to high-dose correctional scale today. Exam Vital Signs (past 8 hours): - 05/18/23 02:00 05/18/23 06:00 Temperature 98.0 F 97.6 F Pulse Rate 79 80 Respiratory Rate 16 17 Blood Pressure 110/60 126/60 Pulse Oximetry 96 96 Oxygen Flow Rate 0 0 Oxygen Delivery Method Room Air Oxygen Flow Rate 0 Narrative Exam Narrative: Alert and oriented x3. Moves slowly and deliberately. Heart is regular rate and rhythm Lungs are clear to auscultation bilaterally. Extremities have no ankle edema. Right upper back has active drainage from a large incision surrounding redness and purulent discharge. Objective Labs 05/18/23 05:35 05/18/23 05:35 Labs: Laboratory Results - last 24 hr 05/17/23 05/17/23 05/18/23 04:55 18:00 05:35 WBC 18.0 H RBC 4.27 L Hgb 12.8 L Hct 38.1 L MCV 89.1 MCH 30.1 MCHC 33.7 RDW 13.4 Plt Count 391 Neut % (Auto) Not Reportable Lymph % (Auto) Not Reportable [place] % (Auto) Not Reportable Eos % (Auto) Not Reportable Baso % (Auto) Not Reportable Lymph # (Auto) Not Reportable [place] # (Auto) Not Reportable Baso # (Auto) Not Reportable Total Counted 100 100 Seg Neutrophils % 75.0 H 60.0 Band Neutrophils % 4.0 15.0 H Lymphocytes % (Manual) 14.0 L 14.0 L Atypical Lymphs % 1.0 H Monocytes % (Manual) 5.0 8.0 Eosinophils % (Manual) 2.0 2.0 Neutrophils # (Manual) 02107 H 17225 H Nucleated RBCs 1 H RBC Morphology Normal morphology Normal morphology Sodium 136 L Potassium 3.7 3.6 Chloride 110 H Carbon Dioxide 24 BUN 14 Creatinine 0.72 Estimated GFR > 60 BUN/Creatinine Ratio 19.4 Glucose 213 H Calcium 7.6 L Total Bilirubin 0.3 AST 59 ALT 41 Alkaline Phosphatase 130 H Total Protein 5.7 L Albumin 2.4 L Globulin 3.3 Albumin/Globulin Ratio 0.7 L PFSH Social History household members: none Smoking Status: Never smoker alcohol intake: never Assessment & Plan Assessment & Plan narrative: 1. Posterior thorax severe cellulitis with abscess, present on admission and active. 2. Severe sepsis ruled out. SOFA score is <2. 3. Lactic acidosis, present on admission and active. 4. Hyponatremia which is likely hypovolemic, present on admission and active. 5. Type 2 diabetes, uncontrolled. Possible mild DKA on presentation. Plan: -patient received sepsis bolus of 30 ml/kilogram and IV fluids have now been stopped. -cultures initially with MSSA, changed cefepime to cefazolin, will keep vanco pending OR cultures which are still pending. -A1c is >11, started on lantus but glucose still high but much improved from 180-low 200s today. Got IV fluids and some sliding scale insulin with improvement initially. Possible this represented DKA. Gap has closed on labs. continue sliding scale and will continue to monitor glucose levels. Will likely need to discharge home on insulin. -continue local wound care -OT assessment for patient's left shoulder, they have signed off but recommended PT given he reports decreased mobility from baseline. Patient is full resuscitation. No proxy for healthcare decisions, does not wish to designate one at this time. Dispo: Plan for possible SNF? case management evaluating options. Quality VTE Deep Vein Thrombosis/Pulmonary Embolism Present on Admission: No
[2023-05-18] MEDS: INSULIN LISPRO 100 UNIT/ML 3ML VIAL SUBCUT ×4 (08:25→21:42)
[2023-05-18] MEDS: INSULIN GLARGINE 100 UNIT/ML 3ML PEN 23 UNIT SUBCUT ×2 (08:27→21:43)
[2023-05-18] MEDS: HEPARIN 5,000 UNIT/ML VIAL 5000 UNIT SUBCUT ×2 (08:29→21:42)
[2023-05-18] MEDS: SODIUM CHLORIDE 0.9% FLUSH 10 ML IV ×2 (08:30→21:47)
[2023-05-18 12:05] VITALS: BP 120/62; PULSE 75; RESP 16; TEMP 36.5; O2SAT 98
--- NOTE | 2023-05-18 13:46 | PT.IPTN ---
Current Diagnoses Sepsis, unspecified organism (05/14/23) Surgery Performed Operation Date: 05/16/23 16:45 Actual Procedures p Incision and Drainage Shoulder(Right) - Maria Dolores Jarrell MD Physical Therapy Treatment Note M2 PT-IP Current Condition Start: 05/17/23 17:47 Freq: NEEDED Status: Active Protocol: Document 05/17/23 15:43 AB (Rec: 05/17/23 18:04 AB [id number]) Physical Therapy Current Condition Current Condition Evaluation Date 05/17/23 Treatment Diagnosis sepsis; s/p R posterior shoulder I&D; difficulty in walking Onset Date 05/14/23 M3 PT-IP Subjective Start: 05/17/23 17:47 Freq: NEEDED Status: Active Protocol: Document 05/18/23 14:26 TS (Rec: 05/18/23 14:39 TS [id number]) Subjective Physical Therapy Visit Type Type Treatment Note Visit Start Time 13:46 Visit Stop Time 14:16 Number of THREE DIMENSIONAL MAP MODELER Visits 1 Physical Therapy Visit Comments Patient Comments Pt found just after shower, is agreeable to PT. He reports he does not want to go back to RV and would like to go to rehab to get stronger. Therapy Pain Assessment Pain When Pain Assessed At Rest Pain Present Pain Present Pain Reported M4 PT-IP Mobility and Gait Start: 05/17/23 17:47 Freq: NEEDED Status: Active Protocol: Document 05/18/23 14:26 TS (Rec: 05/18/23 14:39 TS [id number]) PT-Bed Mobility Assessment Sit to Supine Sit to Supine Standby Assistance,Head of Bed Elevated PT-Transfer Assessment Sit to and From Stand Sit to and from Stand Contact Guard Assistance,1 Person Assistance,Use of Upper Extremities Equipment Transfer Assistive Device Gait Belt,Front Wheeled Walker Orthotic/Prosthetic Devices or Brace: No Comments Mobility Comments Pt continues to refuse socks with mobility. STS from chair CGA with UE's on FWW. He ambulated ~30 out of his room, pt requested back to room due to fatigue and could not make it to stairs. He has some SOB with gait, Spo2 90% on RA. He performed steps x3 with CGA and use of B rails on step stool. He is slow to take to steps and demonstrates weakness in BLE's. Sit to supine into bed SBA. Pt was left in bed, all needs met. Gait Assessment Gait Gait Assistance Required: Contact Guard Assist Distance (Feet) 60 Able to Maintain Weight Bearing Status Yes During Gait Assistive Devices Assistive Device Gait Belt,Front Wheeled Walker Orthotic/Prosthetic Devices or Brace: No Gait Deviations General Gait Pattern Ataxic,Decreased Stride Length ,Decreased Feet Clearance Factors Limiting Gait Function Factors Limiting Gait Function Decreased Activity Tolerance, Decreased Sensation,Decreased Strength,Limited Range of Motion,Pain,Poor Balance,Poor Safety Awareness Comments Gait Comments Has slow gait with flexed posture and some SOB. See mobility comments Stair Climbing Assessment Evaluation Level of Assist On Stairs Minimal Assistance,1 Person Assistance Devices Stair Climbing Assistive Devices Left Railing,Right Railing Technique/Endurance Stair Climbing Direction Ascend and Descend Stair Climbing Technique Step to Step Number of Steps Climbed 3 PT-Balance Assessment Sitting Balance and Reactions Static Sitting Balance Ability Normal Dynamic Sitting Balance Ability Good Standing Balance and Reactions Static Standing Balance Ability Fair Dynamic Standing Balance Ability Fair Device Used FWW M5 PT-IP Objective Assessments Start: 05/17/23 17:47 Freq: NEEDED Status: Active Protocol: Document 05/17/23 15:43 AB (Rec: 05/17/23 18:04 AB [id number]) Orientation Orientation/Cognition Level of Alertness Alert Orientation Name,Situation Safety Awareness Decreased Safety Awareness Gross Range of Motion Lower Extremity ROM Assessment Within Functional Limits Strength Lower Extremity Strength Hip 4-/5 Knee 4-/5 Muscle Tone Muscle Tone WNL Yes M6 PT-IP Treatment Start: 05/17/23 17:47 Freq: NEEDED Status: Active Protocol: Document 05/18/23 14:26 TS (Rec: 05/18/23 14:39 TS [id number]) Physical Therapy Treatment Education Education Provided Safety M7 PT-IP Assessment and Plan Start: 05/17/23 17:47 Freq: NEEDED Status: Active Protocol: Document 05/18/23 14:26 TS (Rec: 05/18/23 14:39 TS [id number]) PT Summary Assessment and Plan Potential Rehabilitation Potential Fair Summary Impairments Pain,ROM,Strength,Balance, Coordination,Sensation,Tone, Cognition,Bed Mobility, Transfers,Gait,Activity Tolerance Progress Towards Goals Slow Progress due to Activity Tolerance Assessment Summary Brooks is making some progress with his mobility this session but is limited by poor activity tolerance. He is CGA for STS with use of FWW. He progressed his gait to ~60' CGA. He became fatigued with gait and had some SOB, Spo2 90 % on RA. He performed steps x3 Jigna with B rails on step stool with some difficulty due to weakness. PT is recommending home vs SNF at this time. Pt would benefit from SNF to improve strength before d/c home. Goals Bed Mobility Goal Independent Transfer Goal Independent,Front Wheeled Walker Gait Goal Independent,Front Wheel Walker Gait Distance 150 Other Goals improve transfers and ambulation using LRAD ~ 200 ft SBA up/down 3 steps L sided grab bar SBA Days to Meet Goals 10 Frequency of Treatment Frequency Of Treatment Once a Day Treatment Plan Physical Therapy Treatment Plan Bed Mobility Training,Transfer Training,Gait Training, Therapeutic Exercise,Balance Retraining,Post Op Education, Discharge Planning,Hot or Cold Pack,Neuromuscular Re-ed, Coordination Retraining,Manual Therapy Recommendations To Nursing Amount of Assist Needed 1 Person Assist Discharge Recommendations PT Discharge Recommendations Home with Assistance,Home Health,SNF Rehab,Home vs SNF Equipment Needed for Home Before FWW Discharge Transportation Needs at Discharge Private Vehicle,Wheelchair/ Cabulance
--- NOTE | 2023-05-18 13:50 | CM.DPC ---
DCP SNF Planning: Per MD, pt currently on IV-Abx and unclear if he will need them at discharge or switch to PO and feel pt could benefit from SNF but also might make progress for home with HH. Pt resides in [place] and only HH agencies that cover [facility] are [facility] and SW confirmed that both currently are NOT accepting pt's [facility] [place] Medicaid for HH as they are historically very difficult insurance to work with. SW made referral to [facility], [facility], [facility]. SW spoke to Malinda at [facility] and she is willing to review but hesitant to accept [facility] without first requesting an increase in reimbursement if pt needs IV-Abx etc.. SW spoke to Chayito at [facility] and she confirms she received and has not had a chance to review yet but willing to consider [facility] pending how much care needs pt has, SW explained not extensive care needs. SW left [facility] for [facility] and Malinda at [facility] is also reviewing for [facility] this weekend some. PASRR completed in anticipation of SNF. Plan: SW to follow closely for SNF reviews to determine if any can accept. If no SNF acceptance, possible need to call [facility] to see if they have openings and would consider. Otherwise home with neighbor/friend support. Lakesha Baptiste MSW
[2023-05-18 16:49] VITALS: BP 129/71; PULSE 90; RESP 20; TEMP 36.5; O2SAT 98
[2023-05-18 20:00] VITALS: BP 111/63; PULSE 90; RESP 19; TEMP 36.6; O2SAT 98
[2023-05-19] VITALS: BP 133/66; PULSE 77; RESP 17; TEMP 36.5; O2SAT 97
[2023-05-19] MEDS: CEFAZOLIN 2 GM/100 ML PREMIX 100 ML IV ×4 (00:20→23:31)
[2023-05-19 04:00] VITALS: BP 113/60; PULSE 82; RESP 19; TEMP 36.9; O2SAT 98
[2023-05-19] MEDS: VANCOMYCIN TROUGH 1 REQUEST MISC (05:30)
[2023-05-19 05:44] LABS: Vancomycin Trough 12.2 ug/mL (10-20)
[2023-05-19] MEDS: VANCOMYCIN 1,750 MG in SODIUM CHLORIDE 0.9% 500 ML 250 MG IV (05:48)
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
[2023-05-19 08:00] VITALS: BP 140/73; PULSE 75; RESP 18; TEMP 36.1; O2SAT 98
[2023-05-19] MEDS: INSULIN LISPRO 100 UNIT/ML 3ML VIAL SUBCUT ×3 (08:04→17:08)
--- NOTE | 2023-05-19 08:20 | PM.PNPO.1 ---
Subjective Subjective Date Patient Seen: 05/19/23 Time Patient Seen: 08:21 Interval history: feeling much better Exam Vital Signs (past 8 hours): - 05/19/23 04:00 Temperature 98.4 F Pulse Rate 82 Respiratory Rate 19 Blood Pressure 113/60 Pulse Oximetry 98 Oxygen Flow Rate 0 Oxygen Delivery Method Room Air Oxygen Flow Rate 0 Narrative Exam Narrative: continued murky drainage. Enduration of site resolving slowly. Objective Labs 05/18/23 05:35 05/18/23 05:35 Labs: Laboratory Results - last 24 hr 05/19/23 05:20 Vancomycin Trough 12.2 PFSH Social History household members: none Smoking Status: Never smoker alcohol intake: never Assessment & Plan Post-op Postoperative Procedures: Procedures Operation Date: 05/16/23 16:45 Actual Procedure Side Surgeon p Incision and Drainage Shoulder Right Maria Dolores Jarrell MD Postoperative status: doing well Postoperative plan: routine post-op care Postoperative plan narrative: continue dry dressing and daily shower. NPO at midnight for repeat evaluation in am. May benefit from further debridement Time Spent With Patient Time with patient: less than 15 minutes Quality VTE Deep Vein Thrombosis/Pulmonary Embolism Present on Admission: No
[2023-05-19] MEDS: INSULIN GLARGINE 100 UNIT/ML 3ML PEN 23 UNIT SUBCUT ×2 (09:30→21:19)
[2023-05-19] MEDS: HEPARIN 5,000 UNIT/ML VIAL 5000 UNIT SUBCUT ×2 (09:33→21:19)
[2023-05-19 09:40] LABS: Vancomycin Peak 19.2 ug/mL (20-40)
[2023-05-19 12:00] VITALS: BP 130/78; PULSE 75; RESP 14; TEMP 36.6; O2SAT 98
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
--- NOTE | 2023-05-19 14:09 | CM.DPC ---
DCP Cont. Reviewed EMR and team rounds for status updates. Pt was taken off of Vancomycin today, will continue other IV ABO, he may be taken back to the OR for another I&D of his shoulder abcess, pending Dr. Jarrell's assessment on Saturday. Per Dr. Ferrara, pt is likely 1-more week inpt before he'll be ready for d/c. SNF reviews pending. He will not be able to do Home Health due to his insurance and inadequate reimbursement. He will need assistance completing the Medicaid LTC application early this coming week for long-term RETIREMENT placement, but his ability to be eligible for this will depend on [facility] functional assessment. Cont. to monitor.
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
[2023-05-19 16:00] VITALS: BP 130/78; PULSE 78; RESP 14; TEMP 36.9; O2SAT 98
--- NOTE | 2023-05-19 17:56 | PC.NURSE ---
Pt A&Ox4, VSS. SBA/1x with FWW; pt exhibits SOB, increased coughing with prolonged exertion but OK for short distances/to BR. Sputum collected (clear), shown, no culture ordered. Dressing changed x1 this shift, dressing saturated with primarily serosanguinous fluid, 1 long string of blood clot, slight beige/pus appearance. Pt showered, new dressing applied. Pt declined SCDs and no-slip socks (pt said I had to learn to walk with no feeling in my feet since childhood, the socks scare me because if they're more or less slippery I can't feel to compensate). Pt very compliant otherwise, calls appropriately. Denies being diabetic, but OK with receiving insulin for blood sugar levels.
[2023-05-19 20:12] VITALS: BP 128/64; PULSE 85; RESP 17; TEMP 36.4; O2SAT 97
[2023-05-19] MEDS: SODIUM CHLORIDE 0.9% FLUSH 10 ML IV (21:19)
[2023-05-20 00:05] VITALS: BP 133/66; PULSE 77; RESP 19; TEMP 36.5; O2SAT 97
[2023-05-20 05:08] VITALS: BP 131/79; PULSE 72; RESP 19; TEMP 36.4; O2SAT 98
[2023-05-20 08:00] VITALS: BP 121/67; PULSE 70; RESP 16; TEMP 36.4; O2SAT 99
[2023-05-20] MEDS: CEFAZOLIN 2 GM/100 ML PREMIX 100 ML IV (08:20)
[2023-05-20] MEDS: SODIUM CHLORIDE 0.9% FLUSH 10 ML IV ×2 (08:22→21:47)
[2023-05-20] MEDS: INSULIN LISPRO 100 UNIT/ML 3ML VIAL SUBCUT ×3 (08:24→16:53)
[2023-05-20] MEDS: INSULIN GLARGINE 100 UNIT/ML 3ML PEN 23 UNIT SUBCUT ×2 (09:15→21:47)
--- NOTE | 2023-05-20 09:31 | PT.IPTN ---
Current Diagnoses Sepsis, unspecified organism (05/14/23) Surgery Performed Operation Date: 05/16/23 16:45 Actual Procedures p Incision and Drainage Shoulder(Right) - Maria Dolores Jarrell MD Physical Therapy Treatment Note M2 PT-IP Current Condition Start: 05/17/23 17:47 Freq: NEEDED Status: Active Protocol: Document 05/17/23 15:43 AB (Rec: 05/17/23 18:04 AB [id number]) Physical Therapy Current Condition Current Condition Evaluation Date 05/17/23 Treatment Diagnosis sepsis; s/p R posterior shoulder I&D; difficulty in walking Onset Date 05/14/23 M3 PT-IP Subjective Start: 05/17/23 17:47 Freq: NEEDED Status: Active Protocol: Document 05/20/23 09:36 ZF (Rec: 05/20/23 09:44 ZF [id number]) Subjective Physical Therapy Visit Type Type Treatment Note Visit Start Time 09:17 Visit Stop Time 09:31 Number of MANAGER IMAGE Visits 1 Physical Therapy Visit Comments Patient Comments Pt agreeable to PT. Reports that he way over-did it yesterday. Therapy Pain Assessment Pain When Pain Assessed At Rest Pain Present Pain Present Pain Reported Location Right Posterior Shoulder Intensity 2 M4 PT-IP Mobility and Gait Start: 05/17/23 17:47 Freq: NEEDED Status: Active Protocol: Document 05/20/23 09:36 ZF (Rec: 05/20/23 09:44 ZF [id number]) PT-Bed Mobility Assessment Sit to Supine Sit to Supine Standby Assistance,Head of Bed Elevated PT-Transfer Assessment Sit to and From Stand Sit to and from Stand Standby Assistance,1 Person Assistance,Use of Upper Extremities Equipment Transfer Assistive Device Gait Belt,Front Wheeled Walker Orthotic/Prosthetic Devices or Brace: No Comments Mobility Comments Pt is SBA for Supine>Sitting EOB. STS from EOB w/2ww SBA. Pt decines cotton stomper socks and goes barefooted. Pt amb x65' w/2ww , SBA. Pt dems reduced step length, reduced clearance. Pt reports feeling fatigued after overdoing it with PT yesterday. Pt agreeable to staying up in recliner after PT, but declines further activity. Call light within reach, all needs met. Gait Assessment Gait Gait Assistance Required: Standby Assistance Distance (Feet) 65 Able to Maintain Weight Bearing Status Yes During Gait Assistive Devices Assistive Device Gait Belt,Front Wheeled Walker Orthotic/Prosthetic Devices or Brace: No Gait Deviations General Gait Pattern Decreased Stride Length, Decreased Feet Clearance,Step- to Gait,Wide Based Gait Factors Limiting Gait Function Factors Limiting Gait Function Decreased Activity Tolerance, Decreased Sensation,Decreased Strength,Limited Range of Motion,Pain,Poor Balance,Poor Safety Awareness Comments Gait Comments See mobility comments. PT-Balance Assessment Sitting Balance and Reactions Static Sitting Balance Ability Normal Dynamic Sitting Balance Ability Good Standing Balance and Reactions Static Standing Balance Ability Fair Dynamic Standing Balance Ability Fair Device Used FWW M5 PT-IP Objective Assessments Start: 05/17/23 17:47 Freq: NEEDED Status: Active Protocol: Document 05/17/23 15:43 AB (Rec: 05/17/23 18:04 AB [id number]) Orientation Orientation/Cognition Level of Alertness Alert Orientation Name,Situation Safety Awareness Decreased Safety Awareness Gross Range of Motion Lower Extremity ROM Assessment Within Functional Limits Strength Lower Extremity Strength Hip 4-/5 Knee 4-/5 Muscle Tone Muscle Tone WNL Yes M6 PT-IP Treatment Start: 05/17/23 17:47 Freq: NEEDED Status: Active Protocol: Document 05/20/23 09:36 ZF (Rec: 05/20/23 09:44 ZF [id number]) Physical Therapy Treatment Education Education Provided Safety M7 PT-IP Assessment and Plan Start: 05/17/23 17:47 Freq: NEEDED Status: Active Protocol: Document 05/20/23 09:36 ZF (Rec: 05/20/23 09:44 ZF [id number]) PT Summary Assessment and Plan Potential Rehabilitation Potential Fair Summary Impairments Pain,ROM,Strength,Balance, Coordination,Sensation,Bed Mobility,Transfers,Gait, Activity Tolerance Progress Towards Goals Slow Progress due to Activity Tolerance Assessment Summary Pt reports 2 for general pain. Reports 4 for pain at wound, which he states is less than previously. Pt agreeable to PT and is SBA for all mobility, but has low activity tolerance . Goals Bed Mobility Goal Independent Transfer Goal Independent,Front Wheeled Walker Gait Goal Independent,Front Wheel Walker Gait Distance 150 Other Goals improve transfers and ambulation using LRAD ~ 200 ft SBA up/down 3 steps L sided grab bar SBA Days to Meet Goals 10 Frequency of Treatment Frequency Of Treatment Once a Day Treatment Plan Physical Therapy Treatment Plan Bed Mobility Training,Transfer Training,Gait Training, Therapeutic Exercise,Balance Retraining,Discharge Planning, Hot or Cold Pack,Neuromuscular Re-ed,Coordination Retraining ,Manual Therapy Recommendations To Nursing Amount of Assist Needed Standby Assistance Discharge Recommendations PT Discharge Recommendations Home with Assistance,Home Health,SNF Rehab,Home vs SNF Equipment Needed for Home Before FWW Discharge Transportation Needs at Discharge Private Vehicle,Wheelchair/ Cabulance
[2023-05-20 12:00] VITALS: BP 128/62; PULSE 68; RESP 18; TEMP 36.3; O2SAT 99
--- NOTE | 2023-05-20 14:50 | PM.PN.1 ---
Subjective Subjective Date Patient Seen: 05/19/23 Time Patient Seen: 08:21 Interval history: improved pain. Surgery did not want to perform repeat I&D / wound vac placement. Exam Vital Signs (past 8 hours): - 05/20/23 08:00 05/20/23 12:00 Temperature 97.5 F L 97.3 F L Pulse Rate 70 68 Respiratory Rate 16 18 Blood Pressure 121/67 128/62 Pulse Oximetry 99 99 Oxygen Flow Rate 0 0 Oxygen Delivery Method Room Air Oxygen Flow Rate 0 Narrative Exam Narrative: Alert and oriented x3. No apparent distress. His way of speaking is quite slow and extended/discursive Heart is regular rate and rhythm without murmur Lungs are clear to auscultation bilaterally Extremities have no ankle edema Still scant drainage on the dressing this afternoon. Objective Labs 05/18/23 05:35 05/18/23 05:35 [facility] Social History household members: none Smoking Status: Never smoker alcohol intake: never Assessment & Plan Assessment & Plan narrative: 1. Posterior thorax severe cellulitis with abscess, present on admission and active. 2. Severe sepsis ruled out. SOFA score is <2. 3. Lactic acidosis, present on admission and active. 4. Hyponatremia which is likely hypovolemic, present on admission and active. 5. Type 2 diabetes, uncontrolled. Possible mild DKA on presentation. 6. Personality Disorder/Autism Spectrum Plan: -patient received sepsis bolus of 30 ml/kilogram and IV fluids have now been stopped. -cultures initially with MSSA, changed cefepime to cefazolin. Stopped vancomycin on 05/18. Will transition to PO antibiotics for another week from today. Has penicillin allergy but tolerating cefazolin. Will change to cefdinir 300 mg BID. Plan for another week from today. -A1c is >11, started on lantus, now much improved glucose. Got IV fluids and some sliding scale insulin with improvement initially. Possible this represented DKA. Gap has closed on labs. continue sliding scale and will continue to monitor glucose levels. Will likely need to discharge home on insulin. -continue local wound care -OT assessment for patient's left shoulder, they have signed off but recommended PT given he reports decreased mobility from baseline. -being followed closely by surgery with consideration of repeat surgical washout on 05/20/2023. -would benefit from outpatient psychiatric consultation for clarification of patient's possible personality disorder or autism spectrum presentation. Patient is full resuscitation. No proxy for healthcare decisions, does not wish to designate one at this time. Dispo: Plan for possible SNF? case management evaluating options. Quality VTE Deep Vein Thrombosis/Pulmonary Embolism Present on Admission: No
--- NOTE | 2023-05-20 15:09 | CM.DPC ---
DCP Cont: Per MD, after discussion with Surgeon plan currently is not to pursue additional I&D or wound vac at this time and drain to be discontinued from wound. Pt will not need IV-Abx at discharge but ongoing wound care and strengthening. Per PT, pt making slow progress but fatigues quickly and could benefit from SNF rehab as he currently has no or very limited assist. SW met bedside with pt and explained role and he confirms he has not completed Medicaid LTC application yet. Pt confirms his preference is SNF rehab for wound care as he cannot reach the wound on his back, med management, and some PT for strengthening. SW explained [facility], [facility], [facility] reviewing to determine if any can accept and then to [facility] for [facility] auth. Pt remains agreeable. Pt confirms his DPOA is his Uncle Milton Drew but pt does not have a cell phone really as where he lives on [address] does not have cell service and therefore he also does not have Milton's phone number but states his neighbor friend Yamini does. [facility] reviewed and declines accepting pt at this time. [facility] reviewing and states they will need to do bedside assess to see if they could accept pt. [facility] reviewing and considering based on pt's care needs. SW faxed updated clinicals to [facility] and [facility] and requested decision if they think they can accept and submit auth. KEITH also called [facility] and both might have a bed available and willing to review and KEITH faxed clinicals to both facilities to review. Plan: KEITH to follow closely for [facility], [facility], [facility], and [facility] to review to determine if any can accept. KELIN Horne
[2023-05-20 16:00] VITALS: BP 120/67; PULSE 68; RESP 16; TEMP 36.3; O2SAT 94
--- NOTE | 2023-05-20 18:32 | PC.NURSE ---
Per MD Jarrell's telephone orders. Marie drain dc'd. Wound draining yellow/pink liquid. Absorptive dressing applied. He declined shower today.
[2023-05-20 20:20] VITALS: BP 132/78; PULSE 75; RESP 19; TEMP 36.6; O2SAT 96
[2023-05-20] MEDS: CEFDINIR 300 MG CAPSULE PO (21:46)
[2023-05-20] MEDS: HEPARIN 5,000 UNIT/ML VIAL 5000 UNIT SUBCUT (21:47)
[2023-05-21] VITALS: BP 134/66; PULSE 79; RESP 19; TEMP 36.4; O2SAT 97
[2023-05-21 04:50] VITALS: BP 116/73; PULSE 79; RESP 19; TEMP 36.3; O2SAT 98
--- NOTE | 2023-05-21 05:14 | PC.NURSE ---
2200 Drsg to right upper back saturated with light serosang drainage, area cleansed with NS and drsg changed. Area surrounding the two incisions is red, swollen and hard. 0500 Drsg to back saturated again, area cleansed with NS and two ABD pads applied. Errythemia surrounding the two incisions appears to be a deeper red than earlier. Patient denies pain except when pressing on area.
[2023-05-21 08:00] VITALS: BP 131/75; PULSE 91; RESP 16; TEMP 36.5; O2SAT 93
[2023-05-21] MEDS: CEFDINIR 300 MG CAPSULE PO ×2 (08:36→21:46)
[2023-05-21] MEDS: HEPARIN 5,000 UNIT/ML VIAL 5000 UNIT SUBCUT ×2 (08:38→21:46)
[2023-05-21] MEDS: INSULIN GLARGINE 100 UNIT/ML 3ML PEN 23 UNIT SUBCUT ×2 (08:40→21:52)
[2023-05-21] MEDS: INSULIN LISPRO 100 UNIT/ML 3ML VIAL SUBCUT ×3 (08:41→17:00)
[2023-05-21] MEDS: SODIUM CHLORIDE 0.9% FLUSH 10 ML IV ×2 (08:44→21:46)
--- NOTE | 2023-05-21 11:10 | PT.IPTN ---
Current Diagnoses Sepsis, unspecified organism (05/14/23) Surgery Performed Operation Date: 05/16/23 16:45 Actual Procedures p Incision and Drainage Shoulder(Right) - Maria Dolores Jarrell MD Physical Therapy Treatment Note M2 PT-IP Current Condition Start: 05/17/23 17:47 Freq: NEEDED Status: Active Protocol: Document 05/17/23 15:43 AB (Rec: 05/17/23 18:04 AB [id number]) Physical Therapy Current Condition Current Condition Evaluation Date 05/17/23 Treatment Diagnosis sepsis; s/p R posterior shoulder I&D; difficulty in walking Onset Date 05/14/23 M3 PT-IP Subjective Start: 05/17/23 17:47 Freq: NEEDED Status: Active Protocol: Document 05/21/23 12:50 TS (Rec: 05/21/23 13:00 TS [id number]) Subjective Physical Therapy Visit Type Type Treatment Note Visit Start Time 11:10 Visit Stop Time 11:36 Number of MANAGER MERCHANDISE Visits 2 Physical Therapy Visit Comments Patient Comments Pt found in bed, states he feels weak, is agreeable to PT . Therapy Pain Assessment Pain When Pain Assessed At Rest Pain Present Pain Present Pain Reported M4 PT-IP Mobility and Gait Start: 05/17/23 17:47 Freq: NEEDED Status: Active Protocol: Document 05/21/23 12:50 TS (Rec: 05/21/23 13:00 TS [id number]) PT-Bed Mobility Assessment Supine to Sit Supine to Sit Independent Scooting Scooting to Edge of Bed Independent PT-Transfer Assessment Sit to and From Stand Sit to and from Stand Standby Assistance,1 Person Assistance,Use of Upper Extremities Equipment Transfer Assistive Device Gait Belt,Front Wheeled Walker Orthotic/Prosthetic Devices or Brace: No Comments Mobility Comments Supine to sit Ind with HOB elevated. STS from bed SBA with FWW. He ambulated ~150' SBA with slow step to gait and with some SOB. He performed steps x3 with B handrails step to step SBA. Pt ambulated back to room, was left in chair with all needs met. Gait Assessment Gait Gait Assistance Required: Standby Assistance Distance (Feet) 150 Able to Maintain Weight Bearing Status Yes During Gait Assistive Devices Assistive Device Gait Belt,Front Wheeled Walker Orthotic/Prosthetic Devices or Brace: No Gait Deviations General Gait Pattern Decreased Stride Length, Decreased Feet Clearance,Step- to Gait,Wide Based Gait Factors Limiting Gait Function Factors Limiting Gait Function Decreased Activity Tolerance, Decreased Sensation,Decreased Strength,Limited Range of Motion,Pain,Poor Balance,Poor Safety Awareness Comments Gait Comments See mobility comments. Stair Climbing Assessment Evaluation Level of Assist On Stairs Standby Assistance Devices Stair Climbing Assistive Devices Left Railing,Right Railing Technique/Endurance Stair Climbing Direction Ascend and Descend Stair Climbing Technique Step to Step Number of Steps Climbed 3 Stair Climbing Set # Repetitions (reps) 1 Comments Stair Climbing Comments See mobility comments PT-Balance Assessment Sitting Balance and Reactions Static Sitting Balance Ability Normal Dynamic Sitting Balance Ability Good Standing Balance and Reactions Static Standing Balance Ability Good Dynamic Standing Balance Ability Fair Device Used FWW M5 PT-IP Objective Assessments Start: 05/17/23 17:47 Freq: NEEDED Status: Active Protocol: Document 05/17/23 15:43 AB (Rec: 05/17/23 18:04 AB [id number]) Orientation Orientation/Cognition Level of Alertness Alert Orientation Name,Situation Safety Awareness Decreased Safety Awareness Gross Range of Motion Lower Extremity ROM Assessment Within Functional Limits Strength Lower Extremity Strength Hip 4-/5 Knee 4-/5 Muscle Tone Muscle Tone WNL Yes M6 PT-IP Treatment Start: 05/17/23 17:47 Freq: NEEDED Status: Active Protocol: Document 05/21/23 12:50 TS (Rec: 05/21/23 13:00 TS [id number]) Physical Therapy Treatment Education Education Provided Safety M7 PT-IP Assessment and Plan Start: 05/17/23 17:47 Freq: NEEDED Status: Active Protocol: Document 05/21/23 12:50 TS (Rec: 05/21/23 13:00 TS [id number]) PT Summary Assessment and Plan Potential Rehabilitation Potential Fair Summary Impairments Pain,ROM,Strength,Balance, Coordination,Sensation,Bed Mobility,Transfers,Gait, Activity Tolerance Progress Towards Goals Progressing Toward Goals Assessment Summary Brooks is making progress with his mobility this session. He is Ind for bed mobility and SBA for STS with FWW. He progressed his gait to ~150' SBA with a slow step to gait and use of FWW. He reports feeling more stable walking with FWW at this time. He performed stairs x3 SBA with B handrails, had no buckling or LOB. PT is recommending Home w assist and HHPT. Goals Bed Mobility Goal Independent Transfer Goal Independent,Front Wheeled Walker Gait Goal Independent,Front Wheel Walker Gait Distance 150 Other Goals improve transfers and ambulation using LRAD ~ 200 ft SBA up/down 3 steps L sided grab bar SBA Days to Meet Goals 10 Frequency of Treatment Frequency Of Treatment Once a Day Treatment Plan Physical Therapy Treatment Plan Bed Mobility Training,Transfer Training,Gait Training, Therapeutic Exercise,Balance Retraining,Discharge Planning, Hot or Cold Pack,Neuromuscular Re-ed,Coordination Retraining ,Manual Therapy Recommendations To Nursing Amount of Assist Needed Standby Assistance Discharge Recommendations PT Discharge Recommendations Home with Assistance,Home Health Equipment Needed for Home Before FWW Discharge Transportation Needs at Discharge Private Vehicle
[2023-05-21 12:00] VITALS: BP 120/70; PULSE 72; RESP 18; TEMP 36.4; O2SAT 99
--- NOTE | 2023-05-21 13:52 | P.PN_ITS ---
Subjective Subjective Date Patient Seen: 05/19/23 Time Patient Seen: 08:21 Interval history: improved pain. Still working on placement. Exam Vital Signs (past 8 hours): - 05/21/23 08:00 05/21/23 12:00 Temperature 97.7 F 97.6 F Pulse Rate 91 H 72 Respiratory Rate 16 18 Blood Pressure 131/75 120/70 Pulse Oximetry 93 99 Oxygen Flow Rate 0 0 Oxygen Delivery Method Room Air Oxygen Flow Rate 0 Narrative Exam Narrative: Alert and oriented x3. No apparent distress. His way of speaking is quite slow and extended/discursive Heart is regular rate and rhythm without murmur Lungs are clear to auscultation bilaterally Extremities have no ankle edema Still scant drainage on the dressing this afternoon. Objective Labs 05/18/23 05:35 05/18/23 05:35 Labs: Laboratory Results - last 24 hr 05/14/23 15:11 Smear Path Review [facility] Social History household members: none Smoking Status: Never smoker alcohol intake: never Assessment & Plan Assessment & Plan narrative: 1. Posterior thorax severe cellulitis with abscess, present on admission and active. 2. Severe sepsis ruled out. SOFA score is <2. 3. Lactic acidosis, present on admission and active. 4. Hyponatremia which is likely hypovolemic, present on admission and active. 5. Type 2 diabetes, uncontrolled. Possible mild DKA on presentation. 6. Personality Disorder/Autism Spectrum Plan: -patient received sepsis bolus of 30 ml/kilogram and IV fluids have now been stopped. -cultures initially with MSSA, changed cefepime to cefazolin. Stopped vancomycin on 05/18. Transitioned to PO antibiotics for another week from 05/19. Has penicillin allergy but tolerating cefazolin. Changed to cefdinir 300 mg BID. -A1c is >11, started on lantus, now much improved glucose. Got IV fluids and some sliding scale insulin with improvement initially. Possible this represented DKA. Gap has closed on labs. continue sliding scale and will continue to monitor glucose levels. Will likely need to discharge home on insulin. -continue local wound care -OT assessment for patient's left shoulder, they have signed off but recommended PT given he reports decreased mobility from baseline. -being followed closely by surgery with consideration of repeat surgical washout on 05/20/2023. -would benefit from outpatient psychiatric consultation for clarification of patient's possible personality disorder or autism spectrum presentation. Patient is full resuscitation. No proxy for healthcare decisions, does not wish to designate one at this time. Dispo: Plan for possible SNF? case management evaluating options. Quality VTE Deep Vein Thrombosis/Pulmonary Embolism Present on Admission: No
--- NOTE | 2023-05-21 15:37 | CM.DPC ---
DCP Cont: SW followed up on the previously sent referrals: [facility]- declines pt at this time [facility]- declines pt at this time [facility]- declines [facility]- faxed updated notes, called, they will review, no answer yet. [facility]- left msg inquiring about their review, no return call yet. SW called [facility] and confirmed fax [phone] and sent referral for review in case pt discharges home if declined by [facility] and [facility]. Plan: SW to follow closely for [facility] and [facility] to determine if they can accept and if not then plan of home with outpt [facility] at discharge. HH currently not an option as they do not accept his [facility] at this time. KELIN Horne
[2023-05-21 20:31] VITALS: BP 121/69; PULSE 76; RESP 16; TEMP 36.5; O2SAT 97
[2023-05-21] MEDS: ACETAMINOPHEN 325 MG TABLET 650 MG PO (21:45)
[2023-05-22 05:42] VITALS: BP 126/76; PULSE 75; RESP 16; TEMP 36.5; O2SAT 99
[2023-05-22 08:30] VITALS: BP 144/77; PULSE 72; RESP 18; TEMP 36.6; O2SAT 99
[2023-05-22] MEDS: INSULIN GLARGINE 100 UNIT/ML 3ML PEN 23 UNIT SUBCUT (08:32)
[2023-05-22] MEDS: INSULIN LISPRO 100 UNIT/ML 3ML VIAL SUBCUT ×2 (08:32→12:07)
[2023-05-22] MEDS: CEFDINIR 300 MG CAPSULE PO (08:33)
[2023-05-22] MEDS: SODIUM CHLORIDE 0.9% FLUSH 10 ML IV (08:33)
[2023-05-22] MEDS: HEPARIN 5,000 UNIT/ML VIAL 5000 UNIT SUBCUT (08:51)
--- NOTE | 2023-05-22 09:11 | PT.IPTN ---
Current Diagnoses Sepsis, unspecified organism (05/14/23) Surgery Performed Operation Date: 05/16/23 16:45 Actual Procedures p Incision and Drainage Shoulder(Right) - Maria Dolores Jarrell MD Physical Therapy Treatment Note M2 PT-IP Current Condition Start: 05/17/23 17:47 Freq: NEEDED Status: Active Protocol: Document 05/17/23 15:43 AB (Rec: 05/17/23 18:04 AB [id number]) Physical Therapy Current Condition Current Condition Evaluation Date 05/17/23 Treatment Diagnosis sepsis; s/p R posterior shoulder I&D; difficulty in walking Onset Date 05/14/23 M3 PT-IP Subjective Start: 05/17/23 17:47 Freq: NEEDED Status: Active Protocol: Document 05/22/23 10:18 TS (Rec: 05/22/23 10:29 TS [id number]) Subjective Physical Therapy Visit Type Type Treatment Note Visit Start Time 09:11 Visit Stop Time 09:40 Number of SOFTWARE QUALITY ASSURANCE SPECIALIST Visits 3 Physical Therapy Visit Comments Patient Comments Pt found resting in bed, is agreeable to PT. Pt reports he does not feel it safe to return to his home due to unsantiary living conditions, would like to go to an assisted living facility. He also reports his uncle who is in [place] is working on getting him into a care facility. Therapy Pain Assessment Pain When Pain Assessed At Rest Pain Present Pain Present Pain Reported M4 PT-IP Mobility and Gait Start: 05/17/23 17:47 Freq: NEEDED Status: Active Protocol: Document 05/22/23 10:18 TS (Rec: 05/22/23 10:29 TS [id number]) PT-Bed Mobility Assessment Supine to Sit Supine to Sit Independent Sit to Supine Sit to Supine Independent Scooting Scooting to Edge of Bed Independent Scooting Up and Down in Bed Independent PT-Transfer Assessment Sit to and From Stand Sit to and from Stand Standby Assistance,1 Person Assistance,Use of Upper Extremities Equipment Transfer Assistive Device Gait Belt,Front Wheeled Walker Orthotic/Prosthetic Devices or Brace: No Comments Mobility Comments Pt is Ind with all bed mobility. STS from bed SBA with FWW. He ambulated to restroom and reported BM. Pt states he needs assist with pericare due to shoulder wound and not being able to reach. He ambulated in hallway ~150' SBA with FWW. He performed steps x6 with B handrails SBA with slow movements. Pt ambulated back to bed, was left in bed, all needs met. Gait Assessment Gait Gait Assistance Required: Standby Assistance Distance (Feet) 150 Able to Maintain Weight Bearing Status Yes During Gait Assistive Devices Assistive Device Gait Belt,Front Wheeled Walker Orthotic/Prosthetic Devices or Brace: No Gait Deviations General Gait Pattern Decreased Stride Length, Decreased Feet Clearance,Step- to Gait,Wide Based Gait Factors Limiting Gait Function Factors Limiting Gait Function Decreased Activity Tolerance, Decreased Sensation,Decreased Strength,Limited Range of Motion,Pain,Poor Balance,Poor Safety Awareness Comments Gait Comments See mobility comments. Stair Climbing Assessment Evaluation Level of Assist On Stairs Standby Assistance Devices Stair Climbing Assistive Devices Left Railing,Right Railing Technique/Endurance Stair Climbing Direction Ascend and Descend Stair Climbing Technique Step to Step Number of Steps Climbed 6 Stair Climbing Set # Repetitions (reps) 1 Comments Stair Climbing Comments See mobility comments PT-Balance Assessment Sitting Balance and Reactions Static Sitting Balance Ability Normal Dynamic Sitting Balance Ability Good Standing Balance and Reactions Static Standing Balance Ability Good Dynamic Standing Balance Ability Good Device Used FWW M5 PT-IP Objective Assessments Start: 05/17/23 17:47 Freq: NEEDED Status: Active Protocol: Document 05/17/23 15:43 AB (Rec: 05/17/23 18:04 AB [id number]) Orientation Orientation/Cognition Level of Alertness Alert Orientation Name,Situation Safety Awareness Decreased Safety Awareness Gross Range of Motion Lower Extremity ROM Assessment Within Functional Limits Strength Lower Extremity Strength Hip 4-/5 Knee 4-/5 Muscle Tone Muscle Tone WNL Yes M6 PT-IP Treatment Start: 05/17/23 17:47 Freq: NEEDED Status: Active Protocol: Document 05/22/23 10:18 TS (Rec: 05/22/23 10:29 TS [id number]) Physical Therapy Treatment Education Education Provided Safety M7 PT-IP Assessment and Plan Start: 05/17/23 17:47 Freq: NEEDED Status: Active Protocol: Document 05/22/23 10:18 TS (Rec: 05/22/23 10:29 TS [id number]) PT Summary Assessment and Plan Potential Rehabilitation Potential Fair Summary Impairments Pain,ROM,Strength,Balance, Coordination,Sensation,Bed Mobility,Transfers,Gait, Activity Tolerance Progress Towards Goals Progressing Toward Goals Assessment Summary Brooks continues to make progress with his mobility. He is Ind for all bed mobility. He continues to ambulate ~150' SBA with FWW. He demonstrates increased tolerance to activity and has a quicker paced gait. PT is recommending pt return home with assist and HHPT. He does not believe it is safe for him to return home due to living conditions inside his trailer and requiring assist with wound care. Goals Bed Mobility Goal Independent Transfer Goal Independent,Front Wheeled Walker Gait Goal Independent,Front Wheel Walker Gait Distance 150 Other Goals improve transfers and ambulation using LRAD ~ 200 ft SBA up/down 3 steps L sided grab bar SBA Days to Meet Goals 10 Frequency of Treatment Frequency Of Treatment Once a Day Treatment Plan Physical Therapy Treatment Plan Bed Mobility Training,Transfer Training,Gait Training, Therapeutic Exercise,Balance Retraining,Discharge Planning, Hot or Cold Pack,Neuromuscular Re-ed,Coordination Retraining ,Manual Therapy Recommendations To Nursing Amount of Assist Needed Standby Assistance Discharge Recommendations PT Discharge Recommendations Home with Assistance,Home Health Equipment Needed for Home Before FWW Discharge Transportation Needs at Discharge Private Vehicle
--- NOTE | 2023-05-22 11:52 | PM.DS.1 ---
History of Present Illness History of Present Illness Date Patient Seen: 05/22/23 Time Patient Seen: 11:52 Chief complaint: Wasp sting Narrative: Per admitting provider, The patient was stung by a wasp on May 04. He lost time from May 04 to May 07 and had felt unwell since the sting. Since the he has had progressive fatigue and difficulty with weakness. He lives alone and multiple friends have stopped by to assist. Ultimately a friend noted that he has what appears to be a large infection on his back over a shoulder blade. He came into the ER where he was found to be pale and tachypneic and looked acutely ill. He notes his arms and legs are weak, his chronic weakness of legs is normal but his arms are usually stronger. In the ED [place] was [place] [id number]. He has a very large area of induration over the shoulder blade. CT scan was negative for obvious fluid collection. There was no evidence of fasciitis. The patient was given IV antibiotics and also found to have hyperglycemia with a glucose of over 500. He reports no history of diabetes. He was also tachypneic and a venous blood gas revealed a pH of 7.54 with a pCO2 of 15 NaHCO3 of 14. His sodium was 126, chloride 96, creatinine 0.97. Glucose was 441 with a lactic acid of 4.0 and a calcium of 8.6. A urine drug screen was negative. In talking to the patient more he has little to add that is concrete. He does note that he decided to be all for help through his window at his house today because he was going into organ failure. He denies any history of known diabetes but notes that his mother had diabetes. He also is not sure if he has been urinating more or less recently. Discharge Providers Provider Date of admission: 05/14/23 17:47 Discharge Date: 05/22/23 Primary care physician: *ED Temp* Consults: 05/14/23 15:21 Consult to [facility] - Director Digital Stat Comment: 05/14/23 19:05 Consult to Dietitian, Adult Routine Comment: A1c 11%, not on any meds prior to admit. Reason For Exam: Consult to DM educator, assessed at high risk Consult to [facility] - Director Digital Routine Comment: 05/15/23 17:00 Consult to General Surgery Routine Comment: Consulting Provider: Maria Dolores Jarrell Reason for consultation: R shoulder / back abscess 05/17/23 11:55 Consult to Occupational Therapy Evaluate & Treat Comment: shoulder after I&D, possible SNF Physician Instructions: Evaluate and treat 05/17/23 15:11 Consult to Physical Therapy Evaluate & Treat Comment: Physician Instructions: Evaluate and Treat Discharge provider: Biran Ding DO Summary Hospital Course Discharge Diagnosis: 1. Posterior thorax severe cellulitis with abscess, present on admission and active. 2. Severe sepsis ruled out. SOFA score is <2. 3. Lactic acidosis, present on admission and active. 4. Hyponatremia which is likely hypovolemic, present on admission and active. 5. Type 2 diabetes, uncontrolled. Possible mild DKA on presentation. 6. Personality Disorder/Autism Spectrum Hospital Course: This is a 47 year old male with PMH of autism vs personality disorder, DM2, who presented with a R back abscess and cellulitis. He also possibly had DKA on presentation, but improved with some insulin SQ and fluids. Cultures grew MSSA and patient was continued on ceftriaxone and vancomycin, ultimately changed to oral cefdinir. His abscess was drained by general surgery. Marie was in place initially, removed during his stay. Patient wished to discharge to SNF for wound care, for which he was refused by all. Multiple different placement options were considered, and patient's insurance did not cover home health. He was provided with a wound care clinic follow up appointment. He was discharged with another 5 days of cefdinir. He was sent prescriptions for lantus and pain medications, along with glucometer. He was advised as to the importance of follow up with primary care and the wound care clinic, and encouraged to take a more active role in his own health care. Time Spent with Patient Time spent: Greater than 30 minutes Exam Vital Signs (past 8 hours): - 05/22/23 05:42 05/22/23 08:30 Temperature 97.7 F 97.9 F Pulse Rate 75 72 Respiratory Rate 16 18 Blood Pressure 126/76 144/77 H Pulse Oximetry 99 99 Oxygen Flow Rate 0 Oxygen Delivery Method Room Air Oxygen Flow Rate 0 Narrative Exam Narrative: Alert and oriented x3. No apparent distress. His way of speaking is quite slow and extended/discursive Heart is regular rate and rhythm without murmur Lungs are clear to auscultation bilaterally Extremities have no ankle edema Still scant drainage on the dressing this afternoon. Objective Labs 05/18/23 05:35 05/18/23 05:35 [facility] Social History household members: none Smoking Status: Never smoker alcohol intake: never Discharge Plan Discharge Plan Patient Disposition: Home Provider Discharge Comment: You were admitted to the hospital with a back abscess. Drained by the surgeon. Continue another few days of antibiotics at home. Continue lantus at home. Please make a PCP appointment for further diabetes care as soon as possible. Wound care follow up appointment was made for you. Continue tylenol and motrin at home for pain, can take oxycodone for severe pain if needed. Discharge orders & Medications Prescriptions: New cefdinir 300 mg Capsule 300 mg PO BID 5 Days Qty: 10 0RF insulin glargine [Lantus Solostar U-100 Insulin] 100 unit/mL (3 mL) Insulin Pen 23 unit SUBCUT BID 30 Days Qty: 15 0RF oxycodone 5 mg Tablet 5 mg PO Q3H PRN (Reason: Pain, Moderate (4-6)) 5 Days Qty: 20 0RF insulin glargine 100 unit/mL (3 mL) insulin pen 23 unit SUBCUT BID 30 Days Qty: 15 2RF (DME) pen needle, diabetic [Pen Needle] 32 gauge x 5/32 needle See Rx Instructions .Route Qty: 100 0RF Rx Instructions: As directed (DME) blood-glucose meter [[employer] Smart System] Kit 1 ea miscellaneous .once Qty: 1 0RF Rx Instructions: One glucometer kit (DME) Easy Touch Test Strip Strip See Rx Instructions .Route Qty: 100 0RF Rx Instructions: Check 3-4 times daily Follow up/Referrals: *Temp,ED* [Primary Care Provider] - Diet/Activity/Treatments Diet: Diet as Tolerated and Carb-consistent/Diabetic Activity: As tolerated, no restrictions Skin/Wound/Dressing Care Dressing: Dressing changes as needed for drainage. Okay to shower, just let water run over the area. Visit Report/Discharge Packet Instructions: DI for Hyperglycemia -- Adult, DI for Incision and Drainage, [facility]: Wound Care Stand Alone Forms: Patient Portal/API, Stroke Signs & Symptoms Discharge Data Primary Care Provider: *Temp,ED* Quality VTE Deep Vein Thrombosis/Pulmonary Embolism Present on Admission: No
--- NOTE | 2023-05-22 13:08 | CM.DPC ---
DCP Cont. Reviewed EMR and team rounds for status updates. Pt has been medically cleared for home d/c today. We have made every effort to obtain SNF rehab, a swing bed, and Home Health with no one accepting him. SUPERVISOR [employer]OTTLE [employer]ACH[employer] explained this to him, and let him know that we made a referral to the [facility] wound care clinic for him, and that once they've reviewed his referral, they will reach out and contact him to get him scheduled. Per his request, this SUPERVISOR [employer]OTT[employer] MACHINES also called his neighbor, Yamini, and updated her that he will d/c today, this SUPERVIS[employer]OTT[employer] MACHINES was able to provide him a taxi voucher for his trip home. No further DCP needs indicated at this time.
== END 2023-05-22 15:28 | disposition home or self-care (01) | DRG 383 ==
LOC: ED 17:32 → AC 17:48 → ICU 17:49 → AC 05-15 17:19
PROVIDERS: Internal Medicine; Surgery; Admitting Provider Hospitalist; Emergency Provider Emergency Medicine; Referring Provider Emergency Medicine; Visit Provider Hospitalist
PROC: 0K9 Muscles, Drainage (ICD-10-PCS; principal; 2023-05-16 16:45)
DX: L03.312 Cellulitis of back [any part except buttock and flank] (principal); E87.1 Hypo-osmolality and hyponatremia; E11.10 Type 2 diabetes mellitus with ketoacidosis without coma; L02.212 Cutaneous abscess of back [any part, except buttock and flank]; B95.61 Methicillin susceptible Staphylococcus aureus infection as the cause of diseases classified elsewhere; F84.0 Autistic disorder; Z59.01 Sheltered homelessness; Z79.4 Long term (current) use of insulin
CPT/HCPCS: 10060; 36415; 71260; 80048; 80053; 80202; 80305; 80320; 81001; 82009; 82550; 82805; 82962; 83036; 83605; 83690; 83735; 84132; 84145; 84484; 85007; 85025; 87040; 87070; 87075; 87077; 87147; 87186; 87205; 87797; 93005; 96365; 96366; 96367; 96375; 96376; 97110; 97116; 97162; 97166; 97530; 99232; 99285; 99291; J0136; J0330; J0690; J0692; J1170; J1644; J1815; J1885; J2250; J2405; J2704; J3010; J7050; Q9967

== ENCOUNTER 2023-05-23 17:22 | Observation (INO) | payer OTHER, MEDICAID, SELFPAY ==
[2023-05-14 18:52] VITALS: BMI 36.6
--- NOTE | 2023-05-23 | DI.US.S_ITS ---
PROCEDURE: US ABDOMEN LIMITED INDICATIONS: OPEN WOUND RIGHT BACK/SCAPULAR AREA; POSSIBLE ABSCESS TECHNIQUE: Real-time focused scanning was performed of the right back, with image documentation. COMPARISON: None. FINDINGS: No organized fluid collections or findings concerning for abscess. Subcutaneous edema is present. IMPRESSION: No organized fluid collections. Dictated by: Zack Chan M.D. on 05/23/2023 at 19:56 Approved by: Zack Chan M.D. on 05/23/2023 at 19:56
[2023-05-23 17:22] VITALS: BP 164/89; PULSE 80; RESP 15; TEMP 36.8; O2SAT 95; BMI 35.2
--- NOTE | 2023-05-23 18:19 | ED_ITS ---
HPI - Recheck/Abnormal Lab/Rx <Marcella Mckeon MD - Last Filed: 05/24/23 20:12> General Chief Complaint: Recheck/Abnormal Lab/Rx Stated Complaint: Infected Sting Time Seen by Provider: 05/23/23 17:58 Source: patient Mode of arrival: EMS History of Present Illness HPI narrative: 47-year-old male with recent history of infected shoulder abscess presents by EMS from his trailer for ?I can not take care of myself?. Patient was discharged yesterday from the hospital after admission from 05/13 to 05/21. During that stay patient underwent operative drainage of an abscess on his right shoulder blade, with removal of the drain after 5 days. Patient was assessed by social work, occupational therapy, physical therapy. Last physical therapy note from 05/21 notes that patient was ambulatory unassisted with front wheeled walker, he was able to climb 6 steps of stairs unassisted. Unfortunately due to insurance issues patient was unable to be placed in short-term stay or rehab and home health was not approved due to insurance. Patient was discharged home with several medications. He states that he did not picker operator any of his medications and was in bed. He states that he soaked through his dressings and was very cold in his trailer. He states that he was not able to care for himself and called 911. Related Data Previous Rx's Medication Instructions Recorded blood sugar diagnostic (Easy Touch #100 ea 05/22/23 Test Strip) blood-glucose meter (TrueTrack #1 ea 05/22/23 Smart System kit) cefdinir 300 mg capsule 300 mg PO BID 5 days #10 caps 05/22/23 insulin glargine 100 unit/mL (3 23 unit (0.23 mL) SUBCUT BID 05/22/23 mL) subcutaneous pen days #15 mL insulin glargine 100 unit/mL (3 23 unit (0.23 mL) SUBCUT BID 05/22/23 mL) subcutaneous pen (Lantus days #15 mL Solostar U-100 Insulin) oxycodone 5 mg tablet 5 mg PO Q3H PRN Pain, Moderate 05/22/23 (4-6) 5 days #20 tabs pen needle, diabetic 32 gauge x #100 ea 05/22/23 (Pen Needle) Allergies Allergy/AdvReac Type Severity Reaction Status Date / Time Penicillins Allergy Severe Anaphylaxis Verified 05/23/23 17:31 azithromycin Allergy Unknown Verified 05/23/23 17:31 Patient History <Marcella Mckeon MD - Last Filed: 05/24/23 20:12> Social History household members: none Smoking Status: Never smoker alcohol intake: never Smoking Status: Never smoker alcohol intake frequency: holidays/special occasions only Substance Use Type: does not use Exam <Marcella Mckeon MD - Last Filed: 05/24/23 20:12> Initial Vital Signs Initial Vital Signs: Vital Signs Temperature 98.2 F 05/23/23 17:22 Pulse Rate 80 05/23/23 17:22 Respiratory Rate 15 05/23/23 17:22 Blood Pressure 164/89 H 05/23/23 17:22 Pulse Oximetry 95 05/23/23 17:22 Oxygen Delivery Method Room Air 05/23/23 17:22 <Alicia Moore DO - Last Filed: 05/24/23 09:12> Initial Vital Signs Initial Vital Signs: Vital Signs Temperature 98.2 F 05/23/23 17:22 Pulse Rate 80 05/23/23 17:22 Respiratory Rate 15 05/23/23 17:22 Blood Pressure 164/89 H 05/23/23 17:22 Pulse Oximetry 95 05/23/23 17:22 Oxygen Delivery Method Room Air 05/23/23 17:22 GENERAL: Alert 47-year-old male CARDIOVASCULAR: peripheral pulses in tact, cap refill <2 sec RESPIRATORY: No respiratory distress, speaks in full sentences without difficulty EXTREMITIES: Normal range of motion, no clubbing or edema. Neurovascularly intact NEUROLOGICAL: Cranial nerves II through XII grossly intact. Normal gait and speech. SKIN: Wound on right shoulder incision site is seen no significant erythema however copious of drainage Course <Marcella Mckeon MD - Last Filed: 05/24/23 20:12> Orders Ordered: Acetaminophen (Acetaminophen 325 Mg Tablet) 650 mg PO Q6H PRN PRN Reason: Fever/Mild Pain (1-3) Cefdinir (Cefdinir 300 Mg Capsule) 300 mg PO BID [facility] Last Admin: 05/24/23 08:33 Dose: 300 mg Documented By: Admin: 05/23/23 21:02 Dose: 300 mg Documented By: XAVIER Heparin Sodium (Porcine) (Heparin 5,000 Unit/Ml Vial) 5,000 unit SUBCUT BID [facility] Last Admin: 05/24/23 13:43 Dose: 5,000 unit Documented By: HILTON Dextrose (D10w) 100 mls @ 1,200 mls/hr IV PRN PRN PRN Reason: Hypoglycemia Insulin Glargine (Insulin Glargine 100 Unit/Ml 3ml Pen) 23 unit SUBCUT BID AKILAH Insulin Human Lispro (Insulin Lispro 100 Unit/Ml 3ml Vial) 0 unit SUBCUT ACHS [facility]; Protocol Last Admin: 05/24/23 17:15 Dose: 2 unit Documented By: JAMIE Co-signed By: HCDavid Naloxone HCl (Naloxone 0.4 Mg/Ml Vial) 0.2 mg IV Q2MIN PRN PRN Reason: Opiate Reversal Vital Signs Vital signs: Vital Signs - 8 hr 05/24/23 02:36 05/24/23 02:37 05/24/23 02:37 Pulse Rate 77 79 Respiratory Rate Blood Pressure 113/60 Pulse Oximetry 94 97 Oxygen Delivery Method Nasal Cannula Nasal Cannula Oxygen Flow Rate 2 2 05/24/23 03:00 05/24/23 03:30 05/24/23 04:00 Pulse Rate 83 74 74 Respiratory Rate Blood Pressure Pulse Oximetry 95 97 98 Oxygen Delivery Method Nasal Cannula Nasal Cannula Nasal Cannula Oxygen Flow Rate 2 2 2 05/24/23 04:06 05/24/23 04:06 05/24/23 04:30 Pulse Rate 78 79 Respiratory Rate Blood Pressure 126/73 Pulse Oximetry 96 97 Oxygen Delivery Method Room Air Room Air Oxygen Flow Rate 05/24/23 05:00 05/24/23 05:01 05/24/23 05:01 Pulse Rate 70 74 Respiratory Rate Blood Pressure 152/70 H Pulse Oximetry 100 99 Oxygen Delivery Method Room Air Room Air Oxygen Flow Rate 05/24/23 05:30 05/24/23 06:00 05/24/23 06:01 Pulse Rate 69 79 Respiratory Rate Blood Pressure 115/59 L Pulse Oximetry 96 96 Oxygen Delivery Method Room Air Room Air Oxygen Flow Rate 05/24/23 06:01 05/24/23 06:30 05/24/23 07:00 Pulse Rate 81 72 Respiratory Rate Blood Pressure 127/78 Pulse Oximetry 98 99 Oxygen Delivery Method Room Air Oxygen Flow Rate 05/24/23 07:00 05/24/23 07:30 05/24/23 08:10 Pulse Rate 73 71 Respiratory Rate 16 16 Blood Pressure Pulse Oximetry 97 100 Oxygen Delivery Method Oxygen Flow Rate <Alicia Moore, - Last Filed: 05/24/23 09:12> Orders Ordered: Acetaminophen (Acetaminophen 325 Mg Tablet) 650 mg PO Q6H PRN PRN Reason: Fever/Mild Pain (1-3) Cefdinir (Cefdinir 300 Mg Capsule) 300 mg PO BID [facility] Last Admin: 05/24/23 08:33 Dose: 300 mg Documented By: Admin: 05/23/23 21:02 Dose: 300 mg Documented By: XAVIER Heparin Sodium (Porcine) (Heparin 5,000 Unit/Ml Vial) 5,000 unit SUBCUT BID [facility] Last Admin: 05/24/23 13:43 Dose: 5,000 unit Documented By: TEP Dextrose (D10w) 100 mls @ 1,200 mls/hr IV PRN PRN PRN Reason: Hypoglycemia Insulin Glargine (Insulin Glargine 100 Unit/Ml 3ml Pen) 23 unit SUBCUT BID [facility] Insulin Human Lispro (Insulin Lispro 100 Unit/Ml 3ml Vial) 0 unit SUBCUT ACHS [facility]; Protocol Last Admin: 05/24/23 17:15 Dose: 2 unit Documented By: JAMIE Co-signed By: HCW Naloxone HCl (Naloxone 0.4 Mg/Ml Vial) 0.2 mg IV Q2MIN PRN PRN Reason: Opiate Reversal Vital Signs Vital signs: Vital Signs - 8 hr 05/24/23 02:36 05/24/23 02:37 05/24/23 02:37 Pulse Rate 77 79 Respiratory Rate Blood Pressure 113/60 Pulse Oximetry 94 97 Oxygen Delivery Method Nasal Cannula Nasal Cannula Oxygen Flow Rate 2 2 05/24/23 03:00 05/24/23 03:30 05/24/23 04:00 Pulse Rate 83 74 74 Respiratory Rate Blood Pressure Pulse Oximetry 95 97 98 Oxygen Delivery Method Nasal Cannula Nasal Cannula Nasal Cannula Oxygen Flow Rate 2 2 2 05/24/23 04:06 05/24/23 04:06 05/24/23 04:30 Pulse Rate 78 79 Respiratory Rate Blood Pressure 126/73 Pulse Oximetry 96 97 Oxygen Delivery Method Room Air Room Air Oxygen Flow Rate 05/24/23 05:00 05/24/23 05:01 05/24/23 05:01 Pulse Rate 70 74 Respiratory Rate Blood Pressure 152/70 H Pulse Oximetry 100 99 Oxygen Delivery Method Room Air Room Air Oxygen Flow Rate 05/24/23 05:30 05/24/23 06:00 05/24/23 06:01 Pulse Rate 69 79 Respiratory Rate Blood Pressure 115/59 L Pulse Oximetry 96 96 Oxygen Delivery Method Room Air Room Air Oxygen Flow Rate 05/24/23 06:01 05/24/23 06:30 05/24/23 07:00 Pulse Rate 81 72 Respiratory Rate Blood Pressure 127/78 Pulse Oximetry 98 99 Oxygen Delivery Method Room Air Oxygen Flow Rate 05/24/23 07:00 05/24/23 07:30 05/24/23 08:10 Pulse Rate 73 71 Respiratory Rate 16 16 Blood Pressure Pulse Oximetry 97 100 Oxygen Delivery Method Oxygen Flow Rate MDM - Recheck/Abnormal Lab/Rx <Marcella Mckeon MD - Last Filed: 05/24/23 20:12> Lab Data 05/23/23 19:05 05/23/23 19:21 Labs: Lab Results 05/23/23 05/23/23 Range/Units 19:05 19:21 WBC 10.0 (4.5-11.0) X10^3/uL RBC 4.56 (4.5-5.9) X10^6/uL Hgb 14.1 (13.5-17.5) g/dL Hct 41.1 (41-53) % MCV 90.2 (80-100) fL MCH 30.9 (26-34) PG MCHC 34.3 (30-36) % RDW 13.3 (11.6-14.8) % Plt Count 457 H (150-400) X10^3/uL Neut % (Auto) 65.6 (50-75) % Lymph % (Auto) 23.2 L (25-40) % Calvert % (Auto) 8.8 (3-14) % Eos % (Auto) 1.7 L (2-4) % Baso % (Auto) 0.7 (0-2) % Neut # (Auto) 6600 (4570-6926) /uL Lymph # (Auto) 2300 (9834-6386) /uL Calvert # (Auto) 900 (0-900) /uL Eos # (Auto) 200 (0-450) /uL Baso # (Auto) 100 (0-100) /uL Sodium 137 (137-145) mmol/L Potassium 4.2 (3.4-5.1) mmol/L Chloride 107 (98-107) mmol/L Carbon Dioxide 29 (22-32) mmol/L BUN 11 (9-20) mg/dL Creatinine 0.68 (0.66-1.25) mg/dL Estimated GFR > 60 (>60) mL/min BUN/Creatinine Ratio 16.2 (6-22) Glucose 167 H (70-100) mg/dL Calcium 8.9 (8.4-10.2) mg/dL Total Bilirubin 0.5 (0.2-1.3) mg/dL AST 33 (17-59) IU/L ALT 28 (<50) IU/L Alkaline Phosphatase 91 (38-126) U/L Total Protein 6.4 (6.3-8.2) g/dL Albumin 3.0 L (3.5-5.0) g/dL Globulin 3.4 (1.7-4.1) g/dL Albumin/Globulin Ratio 0.9 L (1.0-2.8) Point of Care Testing Glucose POC 165 MDM Narrative Medical decision making narrative: Patient presenting after just being released from the hospital less than 24 hours prior. PT and OT notes reviewed, patient is able to ambulate and perform most ADLs without assistance. PT did recommend home health however this was not an option due to insurance issues. Patient went home and laid in bed and did not get up. While patient may have some upper extremity mobility limitations due to his right shoulder infection there do not appear to be other significant barriers that would explain why patient cannot or will not take care of himself. Laboratory work is reviewed. Leukocytosis has resolved, other laboratory work is within normal limits with normal electrolytes and only slightly elevated blood glucose. Since patient did not take any of his prescribed medications he he was given oral cefdinir as this was the antibiotic he was discharged with. Ultrasound of the shoulder wound shows no residual fluid collection or abscess formation. Social work briefly assessed the patient, however he was not medically clear at that time and no formal plan was initiated. I informed the patient that at this time it did not appear that he had any medical condition that would require admission to the hospital. He was informed that social work would re-evaluate him in the morning, however I did tell him to anticipate discharge home if no additional solutions to his previous problems were found. Patient has slept in bed overnight. No significant events. Pending SW eval. Care of patient signed out to Dr. Moore at 0700 Dr. Moore-patient signed out to me by Dr. Mckeon seen evaluated patient myself. He reports that he was discharged home on May 21 after a prolonged stay, he has a diagnosis of autism versus personality disorder diabetes to he also possibly had DKA on presentation he is wound grew MSSA put vancomycin ultimately discharged home on cefdinir. He was unable to picker operator antibiotics at the pharmacy. He reports that once he got home he was unable to cope. He reports that sheets were soaked from the wound. He is unable to change it. He was unable to get out of bed and picker operator his medications. There was attempt to discharge to [facility] for wound care, however he was refused by all. Multiple different placement options were considered and patient's insurance did not cover home health. He was provided with wound care clinic follow-up appointment and given 5 more days of cefdinir. He was also given medications of Lantus pain meds and a glucometer. Patient now reports that he has some blurry vision he has no numbness tingling or weakness. Head CT negative, no weakness or other focal deficits On exam patient's wound is draining copious amounts of fluid. It has soaked through a hole Chux pad along with pillowcase. Continues to drain the surrounding areas not significantly erythematous he has afebrile not septic. 0800-Dr. García updated on patient's symptoms test results. Agrees that there is no need for any further surgical debridement but wound VAC would be helpful. Difficult to get wound VAC from the ED need insurance prior authorization social admit. Dr. Teague accepts patient to observation Patient states that Milton Ayala is his DPOA, he doen't know his phone number. Patient himself doesn't have a phone number. [phone] is no longer in service. Yamini Giordano notified [phone] Milton Ayala [phone] <Alicia Moore, DO - Last Filed: 05/24/23 09:12> Lab Data Labs: Lab Results 05/23/23 05/23/23 Range/Units 19:05 19:21 WBC 10.0 (4.5-11.0) X10^3/uL RBC 4.56 (4.5-5.9) X10^6/uL Hgb 14.1 (13.5-17.5) g/dL Hct 41.1 (41-53) % MCV 90.2 (80-100) fL MCH 30.9 (26-34) PG MCHC 34.3 (30-36) % RDW 13.3 (11.6-14.8) % Plt Count 457 H (150-400) X10^3/uL Neut % (Auto) 65.6 (50-75) % Lymph % (Auto) 23.2 L (25-40) % Calvert % (Auto) 8.8 (3-14) % Eos % (Auto) 1.7 L (2-4) % Baso % (Auto) 0.7 (0-2) % Neut # (Auto) 6600 (2419-2296) /uL Lymph # (Auto) 2300 (4470-8261) /uL Calvert # (Auto) 900 (0-900) /uL Eos # (Auto) 200 (0-450) /uL Baso # (Auto) 100 (0-100) /uL Sodium 137 (137-145) mmol/L Potassium 4.2 (3.4-5.1) mmol/L Chloride 107 (98-107) mmol/L Carbon Dioxide 29 (22-32) mmol/L BUN 11 (9-20) mg/dL Creatinine 0.68 (0.66-1.25) mg/dL Estimated GFR > 60 (>60) mL/min BUN/Creatinine Ratio 16.2 (6-22) Glucose 167 H (70-100) mg/dL Calcium 8.9 (8.4-10.2) mg/dL Total Bilirubin 0.5 (0.2-1.3) mg/dL AST 33 (17-59) IU/L ALT 28 (<50) IU/L Alkaline Phosphatase 91 (38-126) U/L Total Protein 6.4 (6.3-8.2) g/dL Albumin 3.0 L (3.5-5.0) g/dL Globulin 3.4 (1.7-4.1) g/dL Albumin/Globulin Ratio 0.9 L (1.0-2.8) Point of Care Testing Glucose POC 165 MDM Narrative Medical decision making narrative: Patient presenting after just being released from the hospital less than 24 hours prior. PT and OT notes reviewed, patient is able to ambulate and perform most ADLs without assistance. PT did recommend home health however this was not an option due to insurance issues. Patient went home and laid in bed and did not get up. While patient may have some upper extremity mobility limitations due to his right shoulder infection there do not appear to be other significant barriers that would explain why patient cannot or will not take care of himself. Laboratory work is reviewed. Leukocytosis has resolved, other laboratory work is within normal limits with normal electrolytes and only slightly elevated blood glucose. Since patient did not take any of his prescribed medications he he was given oral cefdinir as this was the antibiotic he was discharged with. Ultrasound of the shoulder wound shows no residual fluid collection or abscess formation. Social work briefly assessed the patient, however he was not medically clear at that time and no formal plan was initiated. I informed the patient that at this time it did not appear that he had any medical condition that would require admission to the hospital. He was informed that social work would re-evaluate him in the morning, however I did tell him to anticipate discharge home if no additional solutions to his previous problems were found. Patient has slept in bed overnight. No significant events. Pending SW theodora. Dr. Moore-patient signed out to me by Dr. Mckeon seen evaluated patient myself. He reports that he was discharged home on May 21 after a prolonged stay, he has a diagnosis of autism versus personality disorder diabetes to he also possibly had DKA on presentation he is wound grew MSSA put vancomycin ultimately discharged home on cefdinir. He was unable to picker operator antibiotics at the pharmacy. He reports that once he got home he was unable to cope. He reports that sheets were soaked from the wound. He is unable to change it. He was unable to get out of bed and picker operator his medications. There was attempt to discharge to [facility] for wound care, however he was refused by all. Multiple different placement options were considered and patient's insurance did not cover home health. He was provided with wound care clinic follow-up appointment and given 5 more days of cefdinir. He was also given medications of Lantus pain meds and a glucometer. Patient now reports that he has some blurry vision he has no numbness tingling or weakness. Head CT negative, no weakness or other focal deficits On exam patient's wound is draining copious amounts of fluid. It has soaked through a hole Chux pad along with pillowcase. Continues to drain the surrounding areas not significantly erythematous he has afebrile not septic. 0800-Dr. García updated on patient's symptoms test results. Agrees that there is no need for any further surgical debridement but wound VAC would be helpful. Difficult to get wound VAC from the ED need insurance prior authorization social admit. Dr. Teague accepts patient to observation Patient states that Milton Ayala is his DPOA, he doen't know his phone number. Patient himself doesn't have a phone number. [phone] is no longer in service. Yamini Giordano notified [phone] Milton Ayala [phone] Discharge Plan Departure Patient Disposition: Admitted as Observation Clinical Impression: Abscess Admit Date/Time: 05/24/23 08:11 Admit Provider: Rick Teague
--- NOTE | 2023-05-23 18:40 | CM.SWNOTE ---
ED GUNNER'S MATE M Note Patient presents to ED via EMS after d/c from acute care yesterday following an infected bee sting, abscess, and I&D surgery. Per Care Management discharge planning notes a referral was made to [facility]. Due to patient's insurance and need for further assistance post SNF or swing bed, patient was unable to be placed for SNF, Swing bed or Home Health. ED provider to conduct further evaluation and treatment. Patient is not yet medically clear at this time. It is recommended that patient seek out delivered rx as it is reported that he has not yet picked up his rx upon d/c from acute care yesterday. It is recommended that patient f/u with [facility] and seek out natural supports. Plan: ED provider to further evaluate patient. ROGER BarthSW
[2023-05-23 19:00] VITALS: PULSE 71; O2SAT 99
[2023-05-23 19:10] LABS: Add Manual Diff / Slide Review NO; Basophils Absolute Auto 100 /uL (0-100); Basophils Percent Auto 0.7 % (0-2); Eosinophils Absolute Auto 200 /uL (0-450); Eosinophils Percent Auto 1.7 % (2-4); Hematocrit 41.1 % (41-53); Hemoglobin 14.1 g/dL (13.5-17.5); Lymphocytes Absolute Auto 2300 /uL (1100-4500); Lymphocytes Percent Auto 23.2 % (25-40); Mean Corpuscular HGB Conc 34.3 % (30-36); Mean Corpuscular Hemoglobin 30.9 PG (26-34); Mean Corpuscular Volume 90.2 fL (80-100); Monocytes Absolute Auto 900 /uL (0-900); Monocytes Percent Auto 8.8 % (3-14); Neutrophils Absolute Auto 6600 /uL (1500-7000); Neutrophils Percent Auto 65.6 % (50-75); Platelet Count 457 X10^3/uL (150-400); Red Blood Cell Count 4.56 X10^6/uL (4.5-5.9); Red Cell Distribution Width 13.3 % (11.6-14.8)
[2023-05-23 19:30] LABS: Alanine Aminotransferase 28 IU/L (<50); Albumin Globulin Ratio 0.9 (1.0-2.8); Alkaline Phosphatase 91 U/L (38-126); Aspartate Aminotransferase 33 IU/L (17-59); BUN Creatinine Ratio 16.2 (6-22); Bilirubin Total 0.5 mg/dL (0.2-1.3); Blood Urea Nitrogen 11 mg/dL (9-20); Calcium 8.9 mg/dL (8.4-10.2); Carbon Dioxide 29 mmol/L (22-32); Chloride 107 mmol/L (98-107); Estimated Glomerular Filt Rate > 60 mL/min (>60); Globulin 3.4 g/dL (1.7-4.1); Glucose 167 mg/dL (70-100); HEMOLYSIS 23 (0-50); Potassium 4.2 mmol/L (3.4-5.1); Sodium 137 mmol/L (137-145); Total Protein 6.4 g/dL (6.3-8.2)
[2023-05-23 20:00] VITALS: PULSE 72; O2SAT 92
[2023-05-23 21:00] VITALS: PULSE 72; O2SAT 95
[2023-05-23] MEDS: CEFDINIR 300 MG CAPSULE PO (21:02)
[2023-05-23 23:00] VITALS: PULSE 74; O2SAT 99
[2023-05-24] VITALS (19 sets, daily range): BP systolic 113–152; BP diastolic 59–78; PULSE 69–83; RESP 16–20; TEMP 36.3–36.8; O2SAT 94–100; BMI 35.2
--- NOTE | 2023-05-24 05:01 | PC.NURSE ---
During this nurses shift pt had no changes in status from arrival to 5 am. Pt states no change/same. We will continue to monitor until seen by HEALTHCARE ADMINISTRATIVE ASSISTANT for further evaluation.
--- NOTE | 2023-05-24 06:45 | PC.NURSE ---
Pt continues to call for Basic ADLs when he is capable of completing tasks on his own. Advised pt multiple times that he is capable and that he needs to do this himself. Pt took off his own clothing independently and able to sit self up to use urinal, and moves independently in bed with and without electric buttons. Pt called to state that he was all tangled up in his blankets and was reminded that he is not and that he can move his blankets on his own. Both myself and the SENIOR INVESTMENT ANALYST on shift had just been in his room to complete a full blanket change. Encouraged pt to move himself and rotate from side to side.
--- NOTE | 2023-05-24 07:35 | DI.CT.S_ITS ---
PROCEDURE: CT HEAD/BRAIN WO CON INDICATIONS: blurry vision TECHNIQUE: Noncontrast 4.5 mm thick angled axial sections acquired from the foramen magnum to the vertex, with coronal and sagittal reformats. For radiation dose reduction, the following was used: automated exposure control, adjustment of mA and/or kV according to patient size. COMPARISON: None. FINDINGS: Image quality: Diagnostic. CSF spaces: Basal cisterns are patent. No extra-axial fluid collections. Ventricles are normal in size and shape. Brain: No midline shift. No intracranial masses or hemorrhage. Scruggs-white matter interface is normal. Skull and face: Calvarium and visualized facial bones are intact, without suspicious lesions. Sinuses: Visualized sinuses and mastoids are clear. IMPRESSION: No acute intracranial pathology. Dictated by: Selam Hood M.D. on 05/24/2023 at 7:57 Approved by: Selam Hood M.D. on 05/24/2023 at 7:58
[2023-05-24] MEDS: CEFDINIR 300 MG CAPSULE PO ×2 (08:33→21:05)
--- NOTE | 2023-05-24 09:00 | PC.NURSE ---
Pt reports he was stung 2 weeks ago; was admitted and failed to follow up with wound care or antibiotics post discharge. Pt presents with wound drainage (yellow) and an open laceration to where wound was drained.
--- NOTE | 2023-05-24 09:01 | PC.NURSE ---
In room from ED. open wound, draining right shoulder/upper back area. Pt report pain 4 out of 10. Transferred to bed from wheelchair without problems. Room dark due to light sensitivity per pt.
--- NOTE | 2023-05-24 12:06 | P.HP_ITS ---
History of Present Illness History of Present Illness Date Patient Seen: 05/24/23 Time Patient Seen: 11:00 Chief complaint: Infected Sting Narrative: From recent discharge: Hospital Course: This is a 47 year old male with PMH of autism vs personality disorder, DM2, who presented with a R back abscess and cellulitis. He also possibly had DKA on presentation, but improved with some insulin SQ and fluids. Cultures grew MSSA and patient was continued on ceftriaxone and vancomycin, ultimately changed to oral cefdinir. His abscess was drained by general surgery. Marie was in place initially, removed during his stay. Patient wished to discharge to SNF for wound care, for which he was refused by all. Multiple different placement options were considered, and patient's insurance did not cover home health. He was provided with a wound care clinic follow up appointment. He was discharged with another 5 days of cefdinir. He was sent prescriptions for lantus and pain medications, along with glucometer. He was advised as to the importance of follow up with primary care and the wound care clinic, and encouraged to take a more active role in his own health care. Recent events: He went home and did not fill his meds. He has been laying in bed with copious drainage from his upper back. He has not picked up insulin and taken. He denies a belief in having DM. He states he has no resources and has not applied for medicaid. He has not been taking antibiotics. He is weak, denies pain and denies dyspnea. No nausea or vomiting. [facility] Social History household members: none Smoking Status: Never smoker alcohol intake: never Meds Home Medications and Allergies Home Medications Medication Instructions Recorded Confirmed Type blood sugar diagnostic (Easy Touch #100 ea 05/22/23 05/24/23 Rx Test Strip) blood-glucose meter (TrueTrack #1 ea 05/22/23 05/24/23 Rx Smart System kit) cefdinir 300 mg capsule 300 mg PO BID 5 days #10 caps 05/22/23 05/24/23 Rx insulin glargine 100 unit/mL (3 23 unit (0.23 mL) SUBCUT BID 30 05/22/23 05/24/23 Rx mL) subcutaneous pen days #15 mL insulin glargine 100 unit/mL (3 23 unit (0.23 mL) SUBCUT BID 30 05/22/23 05/24/23 Rx mL) subcutaneous pen (Lantus days #15 mL Solostar U-100 Insulin) oxycodone 5 mg tablet 5 mg PO Q3H PRN Pain, Moderate 05/22/23 05/24/23 Rx (4-6) 5 days #20 tabs pen needle, diabetic 32 gauge x #100 ea 05/22/23 05/24/23 Rx (Pen Needle) Allergies Allergy/AdvReac Type Severity Reaction Status Date / Time Penicillins Allergy Severe Anaphylaxis Verified 05/23/23 17:31 azithromycin Allergy Unknown Verified 05/23/23 17:31 Review of Systems Review of Systems Narrative: All else reviewed and otherwise unremarkable except as noted in the history and physical. Exam Vital Signs (past 8 hours): - 05/24/23 04:30 05/24/23 05:00 05/24/23 05:01 Temperature Pulse Rate 79 70 74 Respiratory Rate Blood Pressure Pulse Oximetry 97 100 99 Oxygen Delivery Method Room Air Room Air Room Air 05/24/23 05:01 05/24/23 05:30 05/24/23 06:00 Temperature Pulse Rate 69 79 Respiratory Rate Blood Pressure 152/70 H Pulse Oximetry 96 96 Oxygen Delivery Method Room Air Room Air 05/24/23 06:01 05/24/23 06:01 05/24/23 06:30 Temperature Pulse Rate 81 72 Respiratory Rate Blood Pressure 115/59 L Pulse Oximetry 98 99 Oxygen Delivery Method Room Air 05/24/23 07:00 05/24/23 07:00 05/24/23 07:30 Temperature Pulse Rate 73 71 Respiratory Rate 16 Blood Pressure 127/78 Pulse Oximetry 97 100 Oxygen Delivery Method 05/24/23 08:10 05/24/23 08:44 Temperature 98.3 F Pulse Rate Respiratory Rate 16 Blood Pressure Pulse Oximetry Oxygen Delivery Method Oxygen Delivery Method Room Air Oxygen Flow Rate 2 Narrative Exam Narrative: NAD, alert and oriented, fluent speech, calm. Normocephalic skull, EOMI, anicteric sclera, symmetric pupils. Oropharynx unremarkable, no droop. Neck supple, midline trachea, no adenopathy. Lungs clear, normal rate and effort. Heart regular, no murmur gallop or rub. Abdomen is soft, non distended and non tender. Extremities are free of edema. Skin is free of rash or lesions. Joints are not swollen or deformed. Judgment appears to be normal. left upper posterior back: Is diffusely red and there is an area of wound opening that is draining purulent material. Objective Labs 05/23/23 19:05 05/23/23 19:21 Labs: Laboratory Results - last 24 hr 05/23/23 05/23/23 19:05 19:21 WBC 10.0 RBC 4.56 Hgb 14.1 Hct 41.1 MCV 90.2 MCH 30.9 MCHC 34.3 RDW 13.3 Plt Count 457 H Neut % (Auto) 65.6 Lymph % (Auto) 23.2 L [place] % (Auto) 8.8 Eos % (Auto) 1.7 L Baso % (Auto) 0.7 Neut # (Auto) 6600 Lymph # (Auto) 2300 [place] # (Auto) 900 Eos # (Auto) 200 Baso # (Auto) 100 Sodium 137 Potassium 4.2 Chloride 107 Carbon Dioxide 29 BUN 11 Creatinine 0.68 Estimated GFR > 60 BUN/Creatinine Ratio 16.2 Glucose 167 H Calcium 8.9 Total Bilirubin 0.5 AST 33 ALT 28 Alkaline Phosphatase 91 Total Protein 6.4 Albumin 3.0 L Globulin 3.4 Albumin/Globulin Ratio 0.9 L Assessment & Plan Assessment & Plan narrative: 1. Posterior thorax severe cellulitis with abscess, present on admission and active. 2. Type 2 diabetes mellitus (uncontrolled). , present on admission and active. 3. Personality Disorder/Autism Spectrum (unconfirmed), , present on admission and active. 4. Medication non-complicance, , present on admission and active. Time Spent With Patient Time with patient: 30 to 49 minutes with 50% spent counseling/coordinating care Quality MIPS - Admit I confirm the patient?s Advance Care Plan is present, Code status is documented, Surrogate decision maker is in patient?s record [If Yes, STOP here]: Yes MIPS - Meds 'Current medications' to include all prescriptions, [id number] products, herbals, cannabis/cannabidiol products, and vitamin/mineral/dietary (nutritional) supplements. I have utilized all available resources to obtain, update, or review the patient?s current medications. [If Yes, STOP here]: Yes
[2023-05-24] MEDS: HEPARIN 5,000 UNIT/ML VIAL 5000 UNIT SUBCUT ×2 (13:43→21:02)
--- NOTE | 2023-05-24 14:51 | CM.DANOTE ---
Initial DCP Assessment Visit Note Reviewed EMR for pt's medical status. This is a readmit for the same reason. Pt was just admitted from 05/13-05/22/23. He had been admitted for cellulites from a hornet sting, he did not have an epi pen available and he states he is allergic. Pt received IV ABO's and had an I&D done in the OR during this admission. He received a taxi voucher to return back to his [place], where he has been living the last 5-years, and pays rent for. His uncle and aunt deposit money each month into his account for his rent and living expenses from a trust fund that was setup by his mother before she , 2-years ago. He has never worked a job, and was provided for by his mother his entire adult life. Per pt's aunt, he has a long hx of beliefs in multiple conspiracy theories, has not seen a doctor in several years, does not believe in doctors or medication of any kind, and despite being found to have insulin dependent diabetes, he says he doesn't believe in insulin or diabetes. His further states that he was never involved in any sexual abuse cults as a child, and has always lived with both parents in their own home in [place]. Both parents are now . He has no skilled needs other than the wound he currently has, and he stated very clearly to his aunt this week, I'm not going to do anything to help myself, even though he is completely capable. He does not carry a mental health diagnosis due to not having been seen by a doctor for many years, however this GOPHERMAN suspects probable autism spectrum and schizoaffective disorder due to his delusional beliefs, self-neglect, mood disorder, and agoraphobia. DCP will continue to follow and attempt to get the Medicaid application in just in case he can be assessed with functional disabilities by the [facility] GOPHERMAN. His aunt is working on getting him scheduled to establish with a PCP. Discharge Planning/Care Management CM Discharge Assessment Start: 05/24/23 14:43 Freq: Status: Active Protocol: Document 05/24/23 14:43 DPL (Rec: 05/24/23 14:50 DPL [id number]) Discharge Planning Assessment Assigned Editor Dictionary KELIN Fallon Advance Directives? No Advance Directives on File No History Provided By Patient,Medical Record Expected Length of Stay 2 Has Patient been admitted in last 30 Yes days? Comment Pt was just admitted from 05/13-05/22/23. Prior Living Arrangements Homeless Comment Pt lives in a small camper. Household Members none Type of transporation used prior to Drives own vehicle admit Independent with ADL's Yes Is patient alert and oriented? Yes Comment Pt is capable of being independent with all of his ADL's, however chooses not to be. Caregiver for Another No Comment N/A Comment GOPHERMAN is assisting pt with completing a Medicaid application. His aunt Irma is going to help him get on the schedule to obtain a new PCP. Home Health agencies in [place] do not take his insurance, and no SNF/swing beds will accept him. Barriers to Discharge Yes Comment Lack of PCP, barriers with Home Health due to insurance, and his own lack of motivation to make any changes or participate in his care planning. Mental health is the most significant barrier. Discharge Plan Home Transportation Arrangement Likely be a taxi voucher home. Review Status In Process Please Provide Date Initial DC 05/24/23 Assessment Was Performed
[2023-05-24] MEDS: INSULIN LISPRO 100 UNIT/ML 3ML VIAL SUBCUT ×2 (17:15→21:03)
[2023-05-24] MEDS: INSULIN GLARGINE 100 UNIT/ML 3ML PEN 23 UNIT SUBCUT (21:03)
[2023-05-24] MEDS: ACETAMINOPHEN 325 MG TABLET 650 MG PO (21:05)
[2023-05-25 04:00] VITALS: BP 100/56; PULSE 74; RESP 16; TEMP 36.6; O2SAT 96
--- NOTE | 2023-05-25 07:59 | P.PN_ITS ---
Subjective Subjective Interval history: No new issues today. Exam Vital Signs (past 8 hours): - 05/25/23 04:00 Temperature 97.8 F Pulse Rate 74 Respiratory Rate 16 Blood Pressure 100/56 L Pulse Oximetry 96 Oxygen Flow Rate 0 Oxygen Delivery Method Room Air Oxygen Flow Rate 0 Narrative Exam Narrative: NAD, alert and oriented. Fluent speech. Flat affect. Lungs are clear, normal rate and effort. Heart is regular, no murmur gallop or rub. Abdomen is soft, non distended. Extremities are free of edema. Objective Labs 05/23/23 19:05 05/23/23 19:21 [facility] Social History household members: none Smoking Status: Never smoker alcohol intake: never Assessment & Plan Assessment & Plan narrative: 1. Posterior thorax severe cellulitis with abscess, present on admission and active. 2. Type 2 diabetes mellitus (uncontrolled). , present on admission and active. 3. Personality Disorder/Autism Spectrum (unconfirmed), , present on admission and active. 4. Medication non-complicance, , present on admission and active. PLAN: -continue insulin -continue antibiotics -needs a more supportive outpatient medical plan. -possible wound vac for ongoing copious wound drainage. The concern is that the patient presents a grave harm to self. 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 -ADC are referral was made today for evaluation with concern of grave risk to self.
[2023-05-25] MEDS: HEPARIN 5,000 UNIT/ML VIAL 5000 UNIT SUBCUT ×2 (08:25→20:42)
[2023-05-25] MEDS: CEFDINIR 300 MG CAPSULE PO ×2 (08:25→20:42)
[2023-05-25] MEDS: ACETAMINOPHEN 325 MG TABLET 650 MG PO (08:25)
[2023-05-25] MEDS: INSULIN GLARGINE 100 UNIT/ML 3ML PEN 23 UNIT SUBCUT ×2 (08:26→20:43)
[2023-05-25] MEDS: INSULIN LISPRO 100 UNIT/ML 3ML VIAL SUBCUT ×3 (08:27→18:12)
[2023-05-25 11:23] VITALS: BP 112/71; PULSE 96; RESP 20; TEMP 36.1; O2SAT 96
--- NOTE | 2023-05-25 16:06 | CM.DPC ---
DCP Cont. Reviewed EMR and team rounds for status updates. Plan is continue IV ABO's, likely will need to d/c home with OP wound clinic, as before. He is not a candidate to have a wound vac placed, as he cannot have home health, doesn't have a PCP, and no Medicaid. See multiple notes from last d/c. Called his aunt yesterday, she was in agreement to call [facility] clinics yesterday and get pt on a waitlist appt. for obtaining a PCP. Per lengthy discussion in team rounds, this CURRICULUM FACILITATOR is moving foward with having a DCP evaluate pt for involuntary detainment under harm/neglect to self, as pt is refusing to do anything to help himself, although capable, and has said to multiple staff that he will go back to his trailer and do nothing. He knows he's at risk for worsening sepsis, and so very possibly could lay there an . 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 Packet of clinicals left with MILES Fiore for the DCR to review. Dr. Teague completely in agreement with this decision.
--- NOTE | 2023-05-25 18:50 | PC.NURSE ---
Changed patient's dressing two times during day shift due to saturation of dressing. Each time performed wound care and dressed per orders. At end of shift, called registration to update patient aunt contact information per patient's request.
[2023-05-25 20:00] VITALS: BP 131/69; PULSE 77; RESP 17; TEMP 36.1; O2SAT 97
[2023-05-26 04:00] VITALS: BP 103/60; PULSE 73; RESP 16; TEMP 36.3; O2SAT 97
[2023-05-26 07:46] VITALS: BP 121/70; PULSE 76; RESP 16; TEMP 36.2; O2SAT 98
[2023-05-26] MEDS: HEPARIN 5,000 UNIT/ML VIAL 5000 UNIT SUBCUT ×2 (08:30→21:31)
[2023-05-26] MEDS: CEFDINIR 300 MG CAPSULE PO ×2 (08:30→21:31)
[2023-05-26] MEDS: INSULIN LISPRO 100 UNIT/ML 3ML VIAL SUBCUT ×3 (08:31→17:26)
[2023-05-26] MEDS: INSULIN GLARGINE 100 UNIT/ML 3ML PEN 23 UNIT SUBCUT ×2 (08:32→21:33)
--- NOTE | 2023-05-26 13:16 | PM.PN.1 ---
Subjective Subjective Interval history: He is doing well with wound packing in the left shoulder cavity. Denies any dyspnea or abdominal pain. He had a DC are evaluation for harm to self, he was cleared as not needing acute detainment with recommendations for outpatient follow up. This occurred on May 24. This documented is in his paper chart. Exam Vital Signs (past 8 hours): - 05/26/23 07:00 05/26/23 07:46 Temperature 97.2 F L Pulse Rate 76 Respiratory Rate 16 Blood Pressure 121/70 Pulse Oximetry 98 Oxygen Delivery Method Room Air Oxygen Flow Rate 0 Oxygen Delivery Method Room Air Oxygen Flow Rate 0 Narrative Exam Narrative: NAD, alert and oriented. Fluent speech. Lungs are clear, normal rate and effort. Heart is regular, no murmur gallop or rub. Abdomen is soft, non distended. Extremities are free of edema. Objective Labs 05/23/23 19:05 05/23/23 19:21 [facility] Social History household members: none Smoking Status: Never smoker alcohol intake: never Assessment & Plan Assessment & Plan narrative: 1. Posterior thorax severe cellulitis with abscess, present on admission and active. 2. Type 2 diabetes mellitus (uncontrolled) , present on admission and active. 3. Unclear mental health issues , present on admission and active. 4. Medication non-complicance, , present on admission and active. PLAN: -continue insulin REGIMEN WITHOUT CHANGE. -continue antibiotics, oral without change. -needs a more supportive outpatient medical plan. DC are have cleared him for not being incapacitated or harm to self. He unfortunately, is not willing to fill his medications or give himself insulin or take antibiotics or participate in outpatient wound care. There is a question of what kind of severity and with the nature of his mental health issues are. Recommend consulting Dr. Wilcox for his psychiatric assessment on SaturdayMay 26. Social work is reaching out to his family in [place] see what kind of financial resources are available for paid help. Wound packing is likely a reasonable strategy for his ongoing wound care in lieu of the wound VAC. ESTELITA is unclear.
[2023-05-26 15:00] VITALS: BP 130/77; PULSE 81; RESP 16; TEMP 36.4; O2SAT 98
--- NOTE | 2023-05-26 15:26 | CM.DPNOTE ---
Addendum entered by KELIN Sandoval 05/26/23 15:45: ADD: Dr Wilcox, psychiatrist, likely to be consulted Saturday if available. Original Note: SASKIA Celeste Reviewed chart, placed call to patient's Aunt Irma; asked Irma why her is DPOA and she is not, Irma states spouse is more pragmatic than her. Requested DPOA ppk. Irma reports that she does not know the details of patient's finances although her spouse may know more (Melquiades unavailable to speak with this DIRECTOR OF HOME CARE HOSPICE today). Irma further reports that she and her can help patient financially with in home care vs respite facility care in order to get his needs met and wound dressings changed. According to review of chart, wound dressings changes were being done x2 daily as of 05/25/23 Irma and spouse Melquiades live in the [place] area and have not seen patient for many years. Patient's mom in 2019; Irma reports she regrets not asking her sister (patient's mom) how she could best support patient. Irma reports that patient is severely dyslexic, finished high school, possibly one year of college. Irma suspects undiagnosed mental illness that has debilitated patient and left him unable to meet his basic needs. Irma reports that after patient's parents both , counselor Chayito from [facility] for (Ph. # [phone]) assisted with getting patient out of his family home, access to basic needs and into his current living situation. Irma does not feel patient has the capacity to make safe decisions for himself and thinks patient would be better served in a structured and monitored environment. Patient has reported to Irma that he wants to be cared for and would be agreeable to an [facility] vs [facility]. Emailed the [facility] LTC application to Irma at [place] <[email or web address] requested she and her / DPOA (?) complete and email back to this DIRECTOR OF HOME CARE HOSPICE, which then can be reviewed with patient, signed and faxed for expedited review to [facility]. According to provider, DCR dispatched yesterday and patient did not meet criteria for detainment. Plan: Discharge to respite facility under private payment vs home w/outpatient supports while [facility] follows for assessment and potentially [facility] placement. JW
--- NOTE | 2023-05-26 15:41 | CM.DPNOTE ---
DCP Cont, Email Communication Angel Solis, Thank you for the conversation today re your nephew A.W. room 223. I will be in touch shortly to continue it. Attached you will find the [employer] Application for Gr[employer] Up [employer] External Care Services in [facility]. If your nephew remains agreeable to being taken care of in a structured, monitored environment, and there are private funds available from you and your ( as you have just confirmed) to get things started, he is a good candidate for an assisted living facility or an adult family home. I anticipate him returning to his trailer with as many outpatient supports that we can coordinate while the state works on his assessment and potentially, his placement. First, we have some work to do together! Please complete this application to the best of your ability and email it back. I also need a copy of DPOA ppk if it has been completed. I will review the application with your nephew and he can sign. I will then fax it to the state with a request for expedited review. Thank you for all your time and coordination efforts on your nephew?s behalf, KELIN Epperson
--- NOTE | 2023-05-26 15:42 | CM.DPC ---
DCP Cont, Contacts/Resources Yamini & Sheldon Giordano -neighbors and friends (Ph.# [phone]) Marlee Muse Peer Outreach Navigator [facility] P [phone] Counselor named Chayito from [facility] Human Services for (Ph. # [phone]) MANNY BURROWS Follow up needed with family, patient, discharge coordination JW
[2023-05-26] MEDS: ACETAMINOPHEN 325 MG TABLET 650 MG PO (17:25)
[2023-05-26 20:08] VITALS: BP 134/84; PULSE 73; RESP 18; TEMP 35.9; O2SAT 98
[2023-05-27 05:55] VITALS: BP 112/61; PULSE 69; RESP 18; TEMP 36.1; O2SAT 98
[2023-05-27 08:00] VITALS: BP 112/75; PULSE 68; RESP 18; TEMP 36.1; O2SAT 94
[2023-05-27] MEDS: HEPARIN 5,000 UNIT/ML VIAL 5000 UNIT SUBCUT ×2 (09:04→21:11)
[2023-05-27] MEDS: INSULIN GLARGINE 100 UNIT/ML 3ML PEN 23 UNIT SUBCUT ×2 (09:04→21:11)
[2023-05-27] MEDS: CEFDINIR 300 MG CAPSULE PO ×2 (09:04→21:11)
[2023-05-27 12:00] VITALS: BP 117/72; PULSE 71; RESP 18; TEMP 35.9; O2SAT 94
[2023-05-27] MEDS: INSULIN LISPRO 100 UNIT/ML 3ML VIAL SUBCUT (12:48)
--- NOTE | 2023-05-27 13:07 | DIET.CONS2 ---
Dietary Inpatient Consultation Note Admission Date: 05/24/2023 08:11 47 y M admitted for posterior thorax severe cellulitis with abscess. Nutrition screened for low MNA. Pt with previous hospital visit end of April and RD met with pt at bedside 05/16/23 for MNT. No new nutrition needs at this time. Diet: 05/24/23 Lunch Carbohydrate Consistent Diet Diet Modifications: Carbohydrate level: Medium (3 CHO) Reflex DM orders: No Nutrition Percent Meal Consumed 100% 05/26/23 18:00 Percent Meal Consumed 100% 05/26/23 12:30 Percent Meal Consumed 100% 05/26/23 08:50 Percent Meal Consumed 100% 05/25/23 18:00 Electronically Signed by: Sruthi Solomon 05/27/23 13:07 Clinical Dietitian [address] [address]
--- NOTE | 2023-05-27 13:52 | CM.DPNOTE ---
DCP Cont Spoke with POA Melquiades Drew P [phone] . Melquiades reports that he has looked at the [employer] LTC application and does not feel patient will qualify for Medicaid. Patient has an asset of approx $300,000 from his inheritance that typically gets paid at a rate of $1,900 monthly to patient. Melquiades would like to see patient being cared for in a structured care environment, and feels confident that between he and his , and the money patient has in his name, facility care can be paid for private pay. 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 This document names Melquiades as patient's financial POA, patient does not currently have a medical POA. Patient is considered decisional. In addition, patient welcomes input from his Aunt Irma P [phone] and Uncle Melquiades P [phone] . Met w/patient to review DCP efforts. Patient speaks eloquently, has a tendency to dwell in past events at times although redirects easily. Patient requests not to return to his trailer at this time, says I was failing there. Patient is hopeful to discharge to a care facility that can provide wound care, meals, and assist with daily chores. Patient reports working at [facility] facilities in the past and feels planned activities are important, as well as cooked meals. Patient is able to identify to this CERTIFIED SURGICAL TECHNICIAN that he needs someone to keep him on a schedule in order to be successful. Discussed facility options for short term and [facility] care; patient is hopeful to eventually end up back on [facility]. Explained there are facilities in [place] that have nursing that may also have sofa inspector care options, patient agreeable to this, says he needs wound care right now. Discussed this referral with Malinda P [phone] [email or web address] who is reviewing for [facility], emailed updated clinical. Also discussed this referral with Alden Garcia at [facility] ([facility] has nursing 10/09) P [phone] [email or web address]. Emailed updated clinical for review. Placed call to [facility] Swing beds- no beds. LM with SW team at [facility], [facility] Swing beds. Wound care consult pending. Once completed, this information will help with discharge planning efforts ie clinical needs upon discharge. Plan: Discharge to SNF vs SENIOR LIVING private pay is preferable. Back up plan will be return home to [facility] with neighbors (?) and outpatient resources while sofa inspector care is coordinated by patient's family. KELIN Epperson
--- NOTE | 2023-05-27 15:35 | P.CONS_ITS ---
History of Present Illness Consult details Date Patient Seen: 05/27/23 Time Patient Seen: 15:15 Chief complaint: Infected Sting Narrative: The patient is a 47-year-old male with diabetes who was originally admitted with large abscess on his right upper back. He underwent I&D of the abscess on May 15 and was discharged home May 21. The patient reports that he had large amount of drainage at home that he could not manage and he was therefore readmitted to the hospital May 23. The patient was started back on antibiotic therapy and dressing changes with Iodoform gauze. The amount of drainage has decreased over the past couple of days and he has required fewer dressing changes. He is not currently having any fever or chills. The patient is unable to do dressing changes himself because of the location on his upper back. Labs were noted, hemoglobin A1c was 11.7. Cultures grew Staphylococcus aureus. Meds Home Medications and Allergies Home Medications Medication Instructions Recorded Confirmed Type blood sugar diagnostic (Easy Touch #100 ea 05/22/23 05/24/23 Rx Test Strip) blood-glucose meter (TrueTrack #1 ea 05/22/23 05/24/23 Rx Smart System kit) cefdinir 300 mg capsule 300 mg PO BID 5 days #10 caps 05/22/23 05/24/23 Rx insulin glargine 100 unit/mL (3 23 unit (0.23 mL) SUBCUT BID 30 05/22/23 05/24/23 Rx mL) subcutaneous pen days #15 mL insulin glargine 100 unit/mL (3 23 unit (0.23 mL) SUBCUT BID 30 05/22/23 05/24/23 Rx mL) subcutaneous pen (Lantus days #15 mL Solostar U-100 Insulin) oxycodone 5 mg tablet 5 mg PO Q3H PRN Pain, Moderate 05/22/23 05/24/23 Rx (4-6) 5 days #20 tabs pen needle, diabetic 32 gauge x #100 ea 05/22/23 05/24/23 Rx /32 (Pen Needle) Allergies Allergy/AdvReac Type Severity Reaction Status Date / Time Penicillins Allergy Severe Anaphylaxis Verified 05/23/23 17:31 azithromycin Allergy Unknown Verified 05/23/23 17:31 Review of Systems Constitutional Comments: The patient reports having some dizziness and vision changes as well as decreased appetite Cardiovascular Comments: No chest pain Respiratory Comments: No shortness of breath Exam Vital Signs (past 8 hours): - 05/27/23 08:00 05/27/23 12:00 Temperature 96.9 F L 96.6 F L Pulse Rate 68 71 Respiratory Rate 18 18 Blood Pressure 112/75 117/72 Pulse Oximetry 94 94 Oxygen Flow Rate 0 0 Oxygen Delivery Method Room Air Oxygen Flow Rate 0 Narrative Exam Narrative: Well-developed well-nourished male who is alert and oriented and in no apparent distress Skin Other: Large abscess cavity right upper back with relatively small opening, resolving erythema, no tenderness or fluctuance Objective Labs 05/23/23 19:05 05/23/23 19:21 [facility] Social History household members: none Tobacco & Substance Use Smoking Status: Never smoker alcohol intake: never Assessment & Plan Assessment and plan (1) Abscess: Status: Acute Assessment & Plan narrative: The patient has a large abscess cavity that is accumulating fluid. Dressing changes with Iodoform gauze is appropriate however he may benefit from more absorbent outer dressing like an ABD pad. The cavity could be open more widely to allow for better drainage. We will be happy to see the patient at the wound center for follow up after discharge. Time Spent With Patient Time with patient: less than 30 minutes
--- NOTE | 2023-05-27 15:46 | CM.DPNOTE ---
DCP Cont Signature HACH declined patient JW
[2023-05-27 16:00] VITALS: BP 115/75; PULSE 77; RESP 20; TEMP 35.9; O2SAT 95
--- NOTE | 2023-05-27 18:34 | PM.PN.1 ---
Subjective Subjective Interval history: Patient notes ongoing throbbing pain in his back at the abscess site. He is awaiting psych to evaluate tomorrow and SUPERVISOR DETASSELING CREW working on placement. Exam Vital Signs (past 8 hours): - 05/27/23 12:00 05/27/23 16:00 Temperature 96.6 F L 96.6 F L Pulse Rate 71 77 Respiratory Rate 18 20 Blood Pressure 117/72 115/75 Pulse Oximetry 94 95 Oxygen Flow Rate 0 0 Oxygen Delivery Method Room Air Oxygen Flow Rate 0 Narrative Exam Narrative: NAD, alert and oriented. Fluent speech. Lungs are clear, normal rate and effort. Heart is regular, no murmur gallop or rub. Abdomen is soft, non distended. Extremities are free of edema. Large area of abscess s/p drainage on back. Dressing in place. Objective Labs 05/23/23 19:05 05/23/23 19:21 [facility] Social History household members: none Smoking Status: Never smoker alcohol intake: never Assessment & Plan Assessment & Plan narrative: 1. Posterior thorax severe cellulitis with abscess, present on admission and active. 2. Type 2 diabetes mellitus (uncontrolled) , present on admission and active. 3. Unclear mental health issues , present on admission and active. 4. Medication non-complicance, , present on admission and active. PLAN: -continue insulin REGIMEN WITHOUT CHANGE. -continue antibiotics, oral without change. -wound care consulted and gave dressing recs -psych to assess of 05/27 -needs a more supportive outpatient medical plan. DCR has cleared him for not being incapacitated or harm to self. He unfortunately, is not willing to fill his medications or give himself insulin or take antibiotics or participate in outpatient wound care. There is a question of what kind of severity and with the nature of his mental health issues are. Social work is reaching out to his family in [place] see what kind of financial resources are available for paid help. Dispo: Unclear given possible need for placement.
--- NOTE | 2023-05-27 18:44 | PC.NURSE ---
Patient moved to room 216 per coordinator's instructions, with all his belongings. Call light and room phone placed within reach. Patient has no new questions or concerns at this time. Patient has been pleasant and agreeable with care today, continue to monitor.
[2023-05-27 19:45] VITALS: BP 109/62; PULSE 79; RESP 18; TEMP 36.6; O2SAT 96
[2023-05-28 05:12] VITALS: BP 115/71; PULSE 70; RESP 19; TEMP 36.3; O2SAT 94
[2023-05-28 08:00] VITALS: BP 110/60; PULSE 74; RESP 16; TEMP 36.1; O2SAT 99
[2023-05-28] MEDS: CEFDINIR 300 MG CAPSULE PO ×2 (08:29→21:50)
[2023-05-28] MEDS: HEPARIN 5,000 UNIT/ML VIAL 5000 UNIT SUBCUT ×2 (08:29→21:50)
[2023-05-28] MEDS: INSULIN LISPRO 100 UNIT/ML 3ML VIAL SUBCUT ×3 (08:29→17:48)
[2023-05-28] MEDS: INSULIN GLARGINE 100 UNIT/ML 3ML PEN 23 UNIT SUBCUT ×2 (08:29→21:50)
[2023-05-28] MEDS: ACETAMINOPHEN 325 MG TABLET 650 MG PO (13:22)
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
--- NOTE | 2023-05-28 14:13 | CM.DPC ---
DCP Cont. Reviewed EMR and team rounds. Met with Dr. Wilcox and updated him on pt's inpt hx and psych concerns, including pt's refusal to do ADL's that he is perfectly capable of doing. [facility] is reviewing for private pay placement for wound care. His uncle will provide payment to the facility directly. Called [facility], left message requesting status of this review. Pt is medically stable for d/c, goal is to d/c him in the next day or two to lower level of care. Will update his uncle once we back from [facility] so he can connect with them and finalize the payment coordination.
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
[2023-05-28 16:00] VITALS: BP 112/65; PULSE 78; RESP 18; TEMP 36.6; O2SAT 96
--- NOTE | 2023-05-28 18:02 | PM.PN.1 ---
Subjective Subjective Interval history: INSULATION MANAGER working on placement with funds patient has access to through his uncle. Psych to see today. Exam Vital Signs (past 8 hours): - 05/28/23 16:00 Temperature 98 F Pulse Rate 78 Respiratory Rate 18 Blood Pressure 112/65 Pulse Oximetry 96 Oxygen Flow Rate 0 Oxygen Delivery Method Room Air Oxygen Flow Rate 0 Narrative Exam Narrative: NAD, alert and oriented. Fluent speech. Lungs are clear, normal rate and effort. Heart is regular, no murmur gallop or rub. Abdomen is soft, non distended. Extremities are free of edema. Large area of abscess s/p drainage on back. Dressing in place. Objective Labs 05/23/23 19:05 05/23/23 19:21 [facility] Social History household members: none Smoking Status: Never smoker alcohol intake: never Assessment & Plan Assessment & Plan narrative: 1. Posterior thorax severe cellulitis with abscess s/p I&D, present on admission and active. 2. Type 2 diabetes mellitus (uncontrolled) , present on admission and active. 3. Unclear mental health issues , present on admission and active. 4. Medication non-complicance, , present on admission and active. PLAN: -continue insulin REGIMEN WITHOUT CHANGE. -continue po abx -wound care consulted and gave dressing recs -psych to assess of 05/27 -needs a more supportive outpatient medical plan. DCR has cleared him for not being incapacitated or harm to self. He unfortunately, is not willing to fill his medications or give himself insulin or take antibiotics or participate in outpatient wound care. There is a question of what kind of severity and with the nature of his mental health issues are. Social work is reaching out to his family in [place] see what kind of financial resources are available for paid help. Dispo: Unclear given possible need for placement.
[2023-05-28 20:00] VITALS: BP 122/57; PULSE 82; RESP 17; TEMP 36.4; O2SAT 96
[2023-05-29 04:00] VITALS: BP 114/64; PULSE 76; RESP 18; TEMP 36.2; O2SAT 98
[2023-05-29] MEDS: CEFDINIR 300 MG CAPSULE PO ×2 (08:31→21:53)
[2023-05-29] MEDS: HEPARIN 5,000 UNIT/ML VIAL 5000 UNIT SUBCUT ×2 (08:31→21:53)
[2023-05-29] MEDS: INSULIN LISPRO 100 UNIT/ML 3ML VIAL SUBCUT ×2 (08:31→12:00)
[2023-05-29] MEDS: INSULIN GLARGINE 100 UNIT/ML 3ML PEN 23 UNIT SUBCUT ×2 (08:32→21:54)
--- NOTE | 2023-05-29 08:54 | PC.NURSE ---
Patient is alert and oriented x4, dressing to r.shoulder is cdi. Patient will be getting a shower later today and dressing to r.shoulder area will be changed. Patient denies pain. Resting comfortably.
--- NOTE | 2023-05-29 14:00 | PM.PN.1 ---
Subjective Subjective Interval history: Patient is willing to walk around the unit today. He says he is sitting here healing which is all I can do. Psych evaluated and thinks he has a personality disorder. Exam Vital Signs (past 8 hours): Oxygen Delivery Method Room Air Oxygen Flow Rate 0 Narrative Exam Narrative: NAD, alert and oriented. Fluent speech. Lungs are clear, normal rate and effort. Heart is regular, no murmur gallop or rub. Abdomen is soft, non distended. Extremities are free of edema. Large area of abscess s/p drainage on back. Dressing in place. Objective Labs 05/23/23 19:05 05/23/23 19:21 [facility] Social History household members: none Smoking Status: Never smoker alcohol intake: never Assessment & Plan Assessment & Plan narrative: 1. Posterior thorax severe cellulitis with abscess s/p I&D, present on admission and active. 2. Type 2 diabetes mellitus (uncontrolled) , present on admission and active. 3. Unclear mental health issues , present on admission and active. 4. Medication non-complicance, , present on admission and active. PLAN: -continue insulin REGIMEN WITHOUT CHANGE. -continue po abx -wound care consulted and gave dressing recs -psych assessed on 05/27, suggested likely personality disorder and no addition of medications at this time. -needs a more supportive outpatient medical plan. DCR has cleared him for not being incapacitated or harm to self. He unfortunately, is not willing to fill his medications or give himself insulin or take antibiotics or participate in outpatient wound care. There is a question of what kind of severity and with the nature of his mental health issues are. Social work is reaching out to his family in [place] see what kind of financial resources are available for paid help. -patient now willing to get up and walk around unit Dispo: Unclear given possible need for placement. NEONATAL INTENSIVE CARE NURSE working on assisted living placement and securing funds from Uncle. Likely 2-3 days.
[2023-05-29] MEDS: ACETAMINOPHEN 325 MG TABLET 650 MG PO ×2 (14:14→21:53)
--- NOTE | 2023-05-29 14:49 | CM.DPC ---
DCP Cont. Reviewed EMR and team rounds for status updates. Called [facility] to clarify if they are willing to accept pt for placement, they are declining. Called [facility] and faxed clinicals for review. The is pending. Called pt's uncle, Melquiades, and provided him an update. Plan to call Melquiades back again tomorrow and if accepted by the [facility], will connect Melquiades with the [facility] to coordinate payment for the placement.
[2023-05-29 19:29] VITALS: BP 130/74; PULSE 82; RESP 16; TEMP 36.2; O2SAT 96
[2023-05-30 00:23] VITALS: BP 103/60; PULSE 78; RESP 18; TEMP 36.6; O2SAT 94
--- NOTE | 2023-05-30 02:13 | PC.NURSE ---
2300 Right upper back drsg saturated. Drsg changed per order.
[2023-05-30 08:00] VITALS: BP 119/73; PULSE 76; RESP 18; TEMP 36.3; O2SAT 95
[2023-05-30] MEDS: HEPARIN 5,000 UNIT/ML VIAL 5000 UNIT SUBCUT ×2 (08:50→20:57)
[2023-05-30] MEDS: CEFDINIR 300 MG CAPSULE PO ×2 (08:52→20:57)
[2023-05-30] MEDS: INSULIN LISPRO 100 UNIT/ML 3ML VIAL SUBCUT ×3 (08:52→17:20)
[2023-05-30] MEDS: INSULIN GLARGINE 100 UNIT/ML 3ML PEN 23 UNIT SUBCUT ×2 (08:52→20:57)
--- NOTE | 2023-05-30 09:16 | CM.DPC ---
DCP Cont. Reviewed EMR and team rounds for status updates. [facility] will be visiting pt tomorrow to assess him for placement. This CLEANING MAID will update him and the RN once we know a confirmed time.
--- NOTE | 2023-05-30 12:08 | PC.NURSE ---
Assess- Patient is watching television and we will be changing his abcess dressing to r.shoulder later today. BS 140s.
--- NOTE | 2023-05-30 15:34 | PM.PN.1 ---
Subjective Subjective Interval history: Per PROFESSOR OF PRACTICE now has adult family home in [facility] looking at taking patient. Will do assessment on 05/30. Patient willing to go, but his [place] [facility] hope is to live in a family home on . Exam Vital Signs (past 8 hours): - 05/30/23 08:00 Temperature 97.3 F L Pulse Rate 76 Respiratory Rate 18 Blood Pressure 119/73 Pulse Oximetry 95 Oxygen Flow Rate 0 Oxygen Delivery Method Room Air Oxygen Flow Rate 0 Narrative Exam Narrative: NAD, alert and oriented. Fluent speech. Lungs are clear, normal rate and effort. Heart is regular, no murmur gallop or rub. Abdomen is soft, non distended. Extremities are free of edema. Large area of abscess s/p drainage on back. Dressing in place. Objective Labs 05/23/23 19:05 05/23/23 19:21 [facility] Social History household members: none Smoking Status: Never smoker alcohol intake: never Assessment & Plan Assessment & Plan narrative: 1. Posterior thorax severe cellulitis with abscess s/p I&D, present on admission and active. 2. Type 2 diabetes mellitus (uncontrolled) , present on admission and active. 3. Unclear mental health issues , present on admission and active. 4. Medication non-complicance, , present on admission and active. PLAN: -continue insulin REGIMEN WITHOUT CHANGE. -continue po abx -wound care consulted and gave dressing recs -psych assessed on 05/27, suggested likely personality disorder and no addition of medications at this time. -needs a more supportive outpatient medical plan. DCR has cleared him for not being incapacitated or harm to self. He unfortunately, is not willing to fill his medications or give himself insulin or take antibiotics or participate in outpatient wound care. There is a question of what kind of severity and with the nature of his mental health issues are. Social work is reaching out to his family in [place] see what kind of financial resources are available for paid help. -patient now willing to get up and walk around unit Dispo: Unclear given possible need for placement. [facility] assessment on 05/30 and hopefully there in 1-2 days after.
[2023-05-30 16:50] VITALS: BP 114/64; PULSE 76; RESP 18; TEMP 36.4; O2SAT 95
[2023-05-30 20:30] VITALS: BP 119/74; PULSE 75; RESP 16; TEMP 36.5; O2SAT 97
[2023-05-30] MEDS: CYCLOBENZAPRINE 10 MG TABLET 5 MG PO (20:56)
[2023-05-30] MEDS: ACETAMINOPHEN 325 MG TABLET 650 MG PO (20:56)
[2023-05-31 04:50] VITALS: BP 106/59; PULSE 70; RESP 16; TEMP 36.3; O2SAT 95
[2023-05-31 08:49] VITALS: BP 112/73; PULSE 71; RESP 18; TEMP 36.4
[2023-05-31] MEDS: INSULIN LISPRO 100 UNIT/ML 3ML VIAL SUBCUT ×2 (08:54→17:45)
[2023-05-31] MEDS: INSULIN GLARGINE 100 UNIT/ML 3ML PEN 23 UNIT SUBCUT ×2 (08:54→21:04)
[2023-05-31] MEDS: CEFDINIR 300 MG CAPSULE PO ×2 (08:54→21:03)
[2023-05-31] MEDS: HEPARIN 5,000 UNIT/ML VIAL 5000 UNIT SUBCUT ×2 (08:55→21:04)
--- NOTE | 2023-05-31 11:12 | CM.DPNOTE ---
Addendum entered by KELIN Moore 05/31/23 15:32: DISHWASHER BUSSER met with pt at bedside and discussed at length with pt regarding his screening with [facility]. Pt explained that his mcfp goal is to live in assisted living in [place]. Pt noted that he is open to staying at [facility] until his wound heals if wound care will be provided daily. Pt requested that this be discussed with his DPOA/Uncle. DISHWASHER BUSSER called pt's uncle/DPOA and he is agreeable to the plan of pt discharging to [facility] for supported living with coordination of wound care services. DISHWASHER BUSSER called Jamel Srivastava of [facility] and left a voice message stating pt's wishes to accept bed. Plan: Discharge plan evolving, will need to coordinate wound care post-dc (HH vs. wound clinic?). CM Team following any pending discharge needs. Original Note: DCP Continued Reviewed EMR and team rounds for pt?s medical status. Pt had an assessment scheduled with [facility] at ~10:30am at bedside. DISHWASHER BUSSER met with [facility] medicare sales representative in [facility] and was notified that pt received business card but explained apprehension with acceptance due to no RN at [facility]. [facility] accepted pt to board in a shared room in the [facility] but pt will have to accept as soon as possible as there are other individuals set to view the available room this weekend. Plan: DISHWASHER BUSSER will discuss with pt plans for discharge and pending acceptance at [facility]. RAHEEM Vasquez
--- NOTE | 2023-05-31 14:27 | P.PN_ITS ---
Subjective Subjective Interval history: Per CRIME SCENE SPECIALIST now has adult family home in [facility] looking at taking patient. Will do assessment on 05/30. Patient willing to go, but his detention hope is to live in a family home on . Exam Vital Signs (past 8 hours): - 05/31/23 08:49 Temperature 97.6 F Pulse Rate 71 Respiratory Rate 18 Blood Pressure 112/73 Oxygen Delivery Method Room Air Oxygen Flow Rate 0 Narrative Exam Narrative: NAD, alert and oriented. Fluent speech. Lungs are clear, normal rate and effort. Heart is regular, no murmur gallop or rub. Abdomen is soft, non distended. Extremities are free of edema. Large area of abscess s/p drainage on back. Dressing in place. Objective Labs 05/23/23 19:05 05/23/23 19:21 [facility] Social History household members: none Smoking Status: Never smoker alcohol intake: never Assessment & Plan Assessment & Plan narrative: 1. Posterior thorax severe cellulitis with abscess s/p I&D, present on admission and active. 2. Type 2 diabetes mellitus (uncontrolled) , present on admission and active. 3. Unclear mental health issues , present on admission and active. 4. Medication non-complicance, , present on admission and active. PLAN: -continue insulin REGIMEN WITHOUT CHANGE. -continue po abx -wound care consulted and gave dressing recs -psych assessed on 05/27, suggested likely personality disorder and no addition of medications at this time. -needs a more supportive outpatient medical plan. DCR has cleared him for not being incapacitated or harm to self. He unfortunately, is not willing to fill his medications or give himself insulin or take antibiotics or participate in outpatient wound care. There is a question of what kind of severity and with the nature of his mental health issues are. Social work is reaching out to his family in [place] see what kind of financial resources are available for paid help. -patient now willing to get up and walk around unit Dispo: Unclear given possible need for placement. [facility] assessment on 05/30 and hopefully there in 1-2 days after.
[2023-05-31 20:00] VITALS: BP 145/74; PULSE 79; RESP 16; TEMP 36.4; O2SAT 96
[2023-05-31] MEDS: CYCLOBENZAPRINE 10 MG TABLET 5 MG PO (21:03)
[2023-05-31] MEDS: ACETAMINOPHEN 325 MG TABLET 650 MG PO (21:03)
--- NOTE | 2023-06-01 01:26 | PC.NURSE ---
Drsg to right upper back saturated, changed per order at 2340. Also, small firm area with black scab noted to bottom of right great toe. Skin intact, no drainage.
[2023-06-01 04:00] VITALS: BP 140/72; PULSE 80; RESP 16; TEMP 36.7; O2SAT 98
[2023-06-01 06:49] LABS: Add Manual Diff / Slide Review NO; Basophils Absolute Auto 100 /uL (0-100); Basophils Percent Auto 1.1 % (0-2); Eosinophils Absolute Auto 100 /uL (0-450); Eosinophils Percent Auto 2.6 % (2-4); Hematocrit 38.4 % (41-53); Lymphocytes Absolute Auto 2300 /uL (1100-4500); Lymphocytes Percent Auto 41.9 % (25-40); Mean Corpuscular HGB Conc 33.7 % (30-36); Mean Corpuscular Hemoglobin 30.8 PG (26-34); Mean Corpuscular Volume 91.3 fL (80-100); Monocytes Absolute Auto 700 /uL (0-900); Monocytes Percent Auto 12.2 % (3-14); Neutrophils Absolute Auto 2300 /uL (1500-7000); Neutrophils Percent Auto 42.2 % (50-75); Platelet Count 224 X10^3/uL (150-400); Red Blood Cell Count 4.21 X10^6/uL (4.5-5.9); Red Cell Distribution Width 13.9 % (11.6-14.8); White Blood Cell Count 5.5 X10^3/uL (4.5-11.0)
[2023-06-01 06:55] LABS: BUN Creatinine Ratio 19.7 (6-22); Blood Urea Nitrogen 15 mg/dL (9-20); Calcium 8.6 mg/dL (8.4-10.2); Carbon Dioxide 26 mmol/L (22-32); Chloride 109 mmol/L (98-107); Estimated Glomerular Filt Rate > 60 mL/min (>60); Glucose 154 mg/dL (70-100); HEMOLYSIS < 15 (0-50); Sodium 139 mmol/L (137-145)
[2023-06-01] MEDS: ACETAMINOPHEN 325 MG TABLET 650 MG PO ×2 (08:13→17:31)
[2023-06-01] MEDS: CYCLOBENZAPRINE 10 MG TABLET 5 MG PO ×2 (08:14→17:32)
[2023-06-01] MEDS: CEFDINIR 300 MG CAPSULE PO ×2 (08:14→20:53)
[2023-06-01] MEDS: HEPARIN 5,000 UNIT/ML VIAL 5000 UNIT SUBCUT ×2 (08:15→20:54)
[2023-06-01] MEDS: INSULIN LISPRO 100 UNIT/ML 3ML VIAL SUBCUT ×2 (08:15→17:30)
[2023-06-01] MEDS: INSULIN GLARGINE 100 UNIT/ML 3ML PEN 23 UNIT SUBCUT ×2 (08:16→20:54)
--- NOTE | 2023-06-01 11:02 | CM.DPC ---
SASKIA Celeste Reviewed chart and discussed patient in rounds this morning. The AF in [place], [address], [place] [address], that has been referenced in CM notes IS NOT CALLED [facility] the [facility] is titled : [facility]. Burnisher And Bumper is Jamel Srivastava P [phone] Jamel visited patient at bedside yesterday and has accepted patient for private pay admission. CM notes indicate that Jamel has other potential clients in line for this open, shared room. This TELEPHOTO ENGINEER left message for Jamel this morning asking to connect. Barrier: According to notes, [facility] P [phone] has no site safety representative and patient requires at least Q24 wound dressing changes (or PRN) due to the current amount of drainage from his upper back wound. Dr Marte, wound care provider , P [phone], consulted 4.9.24, no indication in note of how often to change dressing, likely prn due to accumulating fluid from the abscess cavity. Placed call to Malinda who is screening for [facility]; asked if [facility] would reconsider for wound care before transition to [facility] (?) Malinda explains that a SNF will need to attempt reimbursement from [facility] before considering private payment. In addition, [facility] has no available mcc care beds which prevents them from considering patient for admission at this time. Will plan to discuss next steps with patient. Patient requires wound care Q24 at least. If this decreases, patient can either discharge to [facility] w/o nursing vs back to [facility] while patient and family discuss watermaster planning. JAE
--- NOTE | 2023-06-01 11:53 | CM.DPNOTE ---
Addendum entered by KELIN Sandoval 06/01/23 12:15: ADD: [facility] Original Note: DCP Cont Lengthy conversation with Dr Ding discussing patient's current wound care needs. Dr Ding does not think patient's wound care is acute enough for SNF. Patient could perform his own wound dressing change, even with the unique and tricky location, if he had a caregiver standing by to assist with wound care supplies. Call received from Jamel at [facility] P [phone] or P [phone] [email or web address] Asked Jamel if the caregivers could stand by and assist with supplies while patient performs his wound care. Jamel agreed to this, states patient would benefit from Home health nursing and will need to be established with wound care at [facility]. [place] does not provide transportation and so patient's medicaid transportation benefit needs to be checked. If no benefit, relatives may be able to help pay for scheduled medical transport every week to and from wound care. Jamel requests contact from patient's POA Melquiades OCHOA. If Jamel can connect with Melquiades to discuss the payment for patient's shared room, Jamel agrees to hold this bed while this team researches the following on Saturday: -Does patient have a medicaid transport benefit? If not, would Aunt and Uncle pay for medical transport? -Can patient get established for wound care at [facility] (per Jamel's request) If not, wound care clinic ? -Would Seda, Shekhar (new referral?) or vel MONTES re-consider this referral if patient was discharging to an AF instead of his trailer? -Can patient get a Director Aeronaut[employer] Commission through [facility] P [phone] to assist with navigation of outpatient appts, resources etc Placed call to Melquiades Drew P [phone], provided summary of above. Requested that Melquiades call Jamel OCHOA and Melquiades reports he will now and plans to keep this CM team updated. CM team following closely for coordination of the safest discharge plan available to patient. Follow up needed business day Saturday AM. Patient may still be considered for discharge home to [facility] vs trailer, although [facility] seems to remain a viable option. JW
[2023-06-01 12:00] VITALS: BP 107/71; PULSE 76; RESP 18; TEMP 35.7; O2SAT 96
--- NOTE | 2023-06-01 14:20 | P.PN_ITS ---
Subjective Subjective Interval history: Awaiting care home placement. Exam Vital Signs (past 8 hours): - 06/01/23 12:00 Temperature 96.3 F L Pulse Rate 76 Respiratory Rate 18 Blood Pressure 107/71 Pulse Oximetry 96 Oxygen Flow Rate 0 Oxygen Delivery Method Room Air Oxygen Flow Rate 0 Narrative Exam Narrative: NAD, alert and oriented. Fluent speech. Large area of abscess s/p drainage on back. Dressing in place. Objective Labs 06/01/23 06:05 06/01/23 06:05 Labs: Laboratory Results - last 24 hr 06/01/23 06:05 WBC 5.5 RBC 4.21 L Hgb 13.0 L Hct 38.4 L MCV 91.3 MCH 30.8 MCHC 33.7 RDW 13.9 Plt Count 224 Neut % (Auto) 42.2 L Lymph % (Auto) 41.9 H Grimes % (Auto) 12.2 Eos % (Auto) 2.6 Baso % (Auto) 1.1 Neut # (Auto) 2300 Lymph # (Auto) 2300 Grimes # (Auto) 700 Eos # (Auto) 100 Baso # (Auto) 100 Sodium 139 Potassium 4.0 Chloride 109 H Carbon Dioxide 26 BUN 15 Creatinine 0.76 Estimated GFR > 60 BUN/Creatinine Ratio 19.7 Glucose 154 H Calcium 8.6 PFSH Social History household members: none Smoking Status: Never smoker alcohol intake: never Assessment & Plan Assessment & Plan narrative: 1. Posterior thorax severe cellulitis with abscess s/p I&D, present on admission and active. 2. Type 2 diabetes mellitus (uncontrolled) , present on admission and active. 3. Unclear mental health issues , present on admission and active. 4. Medication non-complicance, , present on admission and active. PLAN: -continue insulin without any changes today. -continue po abx -wound care consulted and gave dressing recs/ -psych assessed on 05/27, suggested likely personality disorder and no addition of medications at this time. -needs a more supportive outpatient medical plan. DCR has cleared him for not being incapacitated or harm to self. He unfortunately, is not willing to fill his medications or give himself insulin or take antibiotics or participate in outpatient wound care. There is a question of what kind of severity and with the nature of his mental health issues are. Social work is reaching out to his family in [place] see what kind of financial resources are available for paid help. -patient now willing to get up and walk around unit Dispo: Plan for adult family home, okay for discharge once accepted.
--- NOTE | 2023-06-01 14:58 | CM.DPNOTE ---
DCP Cont Spoke w/patient's POA Melquiades who reports monthly cost at [facility] will be approx $7,500 per month. Patient and family can afford this. Jamel had reported to Melquiades that patient would need nurse delegation which cost approx $500 mo for management of his insulin. Nurse delegation for wound care likely not available (?) per Melquidaes because someone would need to be at the [facility] rather than only available by phone- as is the case with insulin management (according to Melquiades). Melquiades prepared to pay this and will work with Jamel today re payment details, deposit etc. Email received from Melquiades Drew asking for [place] facilities in case patient ends up, eventually, closer to [place]. Emailed following link for the Senior resource guide: [email or web address] JW
--- NOTE | 2023-06-01 19:33 | PC.NURSE ---
Explained to the pt that he needs to start doing things that he can for himself and that staff is not here to wait on him hand and foot. This RN brought the pt a new cup of ice water and pt wanted this RN to open the lid of the plastic cup and pour the ice water from the paper cup into the plastic. Pt also wanted this RN to adjust the level of head of the bed despite the pt having controls on the bed rails. This RN explained to the pt: The nurses are here to help you get better and help you complete tasks that you need help with but that does not mean that we are going to press a button for you change the position of your bed or open the lid of water cup when you can do those tasks by yourself. We are not your servants.
[2023-06-01 20:00] VITALS: BP 106/64; PULSE 83; RESP 17; TEMP 36.4; O2SAT 98
[2023-06-02 05:43] VITALS: BP 110/62; PULSE 72; RESP 16; TEMP 36.3; O2SAT 97
[2023-06-02 05:51] LABS: Add Manual Diff / Slide Review NO; Basophils Absolute Auto 100 /uL (0-100); Basophils Percent Auto 1.4 % (0-2); Eosinophils Absolute Auto 200 /uL (0-450); Eosinophils Percent Auto 3.6 % (2-4); Hemoglobin 13.3 g/dL (13.5-17.5); Lymphocytes Absolute Auto 2400 /uL (1100-4500); Lymphocytes Percent Auto 47.3 % (25-40); Mean Corpuscular HGB Conc 33.2 % (30-36); Mean Corpuscular Hemoglobin 30.4 PG (26-34); Mean Corpuscular Volume 91.5 fL (80-100); Monocytes Absolute Auto 600 /uL (0-900); Monocytes Percent Auto 11.8 % (3-14); Neutrophils Absolute Auto 1800 /uL (1500-7000); Neutrophils Percent Auto 35.9 % (50-75); Platelet Count 230 X10^3/uL (150-400); Red Blood Cell Count 4.37 X10^6/uL (4.5-5.9); Red Cell Distribution Width 14.2 % (11.6-14.8); White Blood Cell Count 5.1 X10^3/uL (4.5-11.0)
[2023-06-02 06:01] LABS: BUN Creatinine Ratio 19.7 (6-22); Blood Urea Nitrogen 14 mg/dL (9-20); Calcium 8.5 mg/dL (8.4-10.2); Carbon Dioxide 27 mmol/L (22-32); Chloride 109 mmol/L (98-107); Estimated Glomerular Filt Rate > 60 mL/min (>60); Glucose 179 mg/dL (70-100); HEMOLYSIS < 15 (0-50); Sodium 137 mmol/L (137-145)
[2023-06-02 08:00] VITALS: BP 115/70; PULSE 71; RESP 18; TEMP 36.2; O2SAT 97
[2023-06-02] MEDS: HEPARIN 5,000 UNIT/ML VIAL 5000 UNIT SUBCUT ×2 (08:15→20:59)
[2023-06-02] MEDS: INSULIN GLARGINE 100 UNIT/ML 3ML PEN 23 UNIT SUBCUT ×2 (08:15→20:59)
[2023-06-02] MEDS: CEFDINIR 300 MG CAPSULE PO ×2 (08:15→21:00)
[2023-06-02] MEDS: INSULIN LISPRO 100 UNIT/ML 3ML VIAL SUBCUT (08:16)
--- NOTE | 2023-06-02 12:00 | CM.DPC ---
DCP Cont: Per MD, pt remains stable to discharge to safe living situation that can manage his daily wound dressing changes. KEITH called Jamel at [facility] [phone] to inquire if he had admission pwk that needed to be completed by Hospitalist prior to admission. Jamel states that first he needs his contracted RN Christina to assess patient bedside to make sure that he can meet patient's needs and he requested Christina contact pt's DPOA Uncle to confirm they would be agreeable with the cost of this assessment before Jamel can confirm he can accept the patient or provide pwk to be completed. No date yet for this RN bedside assessment. KEITH secure emailed pt's DPOA to inquire if he had spoken to the RN Vivian regarding the assessment, no response yet. KEITH attempted to call [facility] [phone] but no one in the office on Sundays but faxed new referral for outpt wound clinic to their fax [phone] for review to confirm they can accept pt's [facility] insurance and if they have openings. Will need to follow up with them tomorrow Mon 06/02. KEITH also attempted to call [facility] [phone] and spoke to the temporary receptionist who confirms their SNF flow coordinator Jaycee does not work today Sun but referral could be faxed to fax [phone] and temporary receptionist would place on Jaycee's desk for review in the AM. KEITH faxed new referral to review for wound care and then transition into [facility] to determine if they can be an option for wound care if Jamel at [facility] cannot accept until wound healed. KEITH called [employer] after hours for Medicaid and confirmed that pt has Medicaid transportation benefits for ongoing medical appointments and updated Jamel at [facility]. Plan: KEITH to follow closely in the AM with Jamel at [facility] and [facility] to determine if they are agreeable for cost of RN bedside assessment towards plan of pt moving into [facility]. SW to follow up with [facility] and [facility] to determine if they are options at d/c as well. KELIN Horne
--- NOTE | 2023-06-02 13:26 | P.PN_ITS ---
Subjective Subjective Interval history: Awaiting correction placement. Seen ambulating today with walker Exam Vital Signs (past 8 hours): - 06/02/23 05:43 06/02/23 08:00 Temperature 97.4 F L 97.1 F L Pulse Rate 72 71 Respiratory Rate 16 18 Blood Pressure 110/62 115/70 Pulse Oximetry 97 97 Oxygen Flow Rate 0 0 Oxygen Delivery Method Room Air Oxygen Flow Rate 0 Narrative Exam Narrative: NAD, alert and oriented. Fluent speech. Large area of abscess s/p drainage on back. Dressing in place. Objective Labs 06/02/23 05:25 06/02/23 05:25 Labs: Laboratory Results - last 24 hr 06/02/23 05:25 WBC 5.1 RBC 4.37 L Hgb 13.3 L Hct 40.0 L MCV 91.5 MCH 30.4 MCHC 33.2 RDW 14.2 Plt Count 230 Neut % (Auto) 35.9 L Lymph % (Auto) 47.3 H Kent % (Auto) 11.8 Eos % (Auto) 3.6 Baso % (Auto) 1.4 Neut # (Auto) 1800 Lymph # (Auto) 2400 Kent # (Auto) 600 Eos # (Auto) 200 Baso # (Auto) 100 Sodium 137 Potassium 4.0 Chloride 109 H Carbon Dioxide 27 BUN 14 Creatinine 0.71 Estimated GFR > 60 BUN/Creatinine Ratio 19.7 Glucose 179 H Calcium 8.5 PFSH Social History household members: none Smoking Status: Never smoker alcohol intake: never Assessment & Plan Assessment & Plan narrative: 1. Posterior thorax severe cellulitis with abscess s/p I&D, present on admission and active. 2. Type 2 diabetes mellitus (uncontrolled) , present on admission and active. 3. Unclear mental health issues , present on admission and active. 4. Medication non-complicance, , present on admission and active. PLAN: -continue insulin without any changes today. -continue po abx -wound care consulted and gave dressing recs. Dressing changes with Iodoform gauze is appropriate, followed by dry gauze topped with ABD pad. -psych assessed on 05/27, suggested likely personality disorder and no addition of medications at this time. -needs a more supportive outpatient medical plan. DCR has cleared him for not being incapacitated or harm to self. He unfortunately, is not willing to fill his medications or give himself insulin or take antibiotics or participate in outpatient wound care. There is a question of what kind of severity and with the nature of his mental health issues are. Social work is reaching out to his family in [place] see what kind of financial resources are available for paid help. -patient now willing to get up and walk around unit Dispo: Plan for adult family home, okay for discharge once accepted.
[2023-06-02 16:00] VITALS: BP 110/55; PULSE 85; RESP 18; TEMP 36.3; O2SAT 93
[2023-06-02 20:00] VITALS: BP 103/55; PULSE 87; RESP 19; TEMP 36.3; O2SAT 95
[2023-06-02] MEDS: ACETAMINOPHEN 325 MG TABLET 650 MG PO (21:10)
[2023-06-02] MEDS: CYCLOBENZAPRINE 10 MG TABLET 5 MG PO (21:10)
[2023-06-02] MEDS: SODIUM CHLORIDE 0.9% FLUSH 10 ML IV (22:03)
[2023-06-03] VITALS: BP 109/60; PULSE 77; RESP 17; TEMP 36.4; O2SAT 97
[2023-06-03 05:09] LABS: Add Manual Diff / Slide Review NO; Basophils Absolute Auto 100 /uL (0-100); Basophils Percent Auto 1.2 % (0-2); Eosinophils Absolute Auto 200 /uL (0-450); Eosinophils Percent Auto 3.2 % (2-4); Hematocrit 38.8 % (41-53); Hemoglobin 13.1 g/dL (13.5-17.5); Lymphocytes Absolute Auto 2500 /uL (1100-4500); Lymphocytes Percent Auto 43.1 % (25-40); Mean Corpuscular HGB Conc 33.6 % (30-36); Mean Corpuscular Hemoglobin 30.6 PG (26-34); Mean Corpuscular Volume 91.1 fL (80-100); Monocytes Absolute Auto 700 /uL (0-900); Monocytes Percent Auto 11.7 % (3-14); Neutrophils Absolute Auto 2300 /uL (1500-7000); Neutrophils Percent Auto 40.8 % (50-75); Platelet Count 230 X10^3/uL (150-400); Red Blood Cell Count 4.26 X10^6/uL (4.5-5.9); Red Cell Distribution Width 14.1 % (11.6-14.8); White Blood Cell Count 5.7 X10^3/uL (4.5-11.0)
[2023-06-03 05:18] LABS: BUN Creatinine Ratio 16.7 (6-22); Blood Urea Nitrogen 14 mg/dL (9-20); Calcium 8.6 mg/dL (8.4-10.2); Carbon Dioxide 26 mmol/L (22-32); Chloride 109 mmol/L (98-107); Estimated Glomerular Filt Rate > 60 mL/min (>60); Glucose 159 mg/dL (70-100); HEMOLYSIS < 15 (0-50); Potassium 4.1 mmol/L (3.4-5.1); Sodium 138 mmol/L (137-145)
[2023-06-03 08:00] VITALS: BP 101/60; PULSE 72; RESP 16; TEMP 36.6
[2023-06-03] MEDS: INSULIN GLARGINE 100 UNIT/ML 3ML PEN 23 UNIT SUBCUT ×2 (08:34→21:18)
[2023-06-03] MEDS: INSULIN LISPRO 100 UNIT/ML 3ML VIAL SUBCUT ×3 (08:34→17:04)
--- NOTE | 2023-06-03 09:33 | CM.DPC ---
DCP Continued: SAFETY AND OCCUPATIONAL HEALTH MANAGER called pt's DPOA, Melquiades ([phone]), to confirm that he is consenting for a bedside assessment to be completed by MILES Graham, who is contracted by [facility]. DPOA consents to bedside assessment and payment. SAFETY AND OCCUPATIONAL HEALTH MANAGER called [facility], Jamel ([phone]) to request contact information for MILES Barnett ([phone]). SAFETY AND OCCUPATIONAL HEALTH MANAGER spoke with MILES Graham and inquired about intake assessment necessary for acceptance at [facility]. MILES Barnett is requesting clinicals to be sent via secure email [email or web address]). MILES Barnett is hoping to complete a remote assessment with RN to RN report tomorrow morning, 4.16 to expedite discharge process. [facility] called this morning and notified DCP that they are currently full and are not able to accept at this time - referral was sent yesterday, 4.14. Plan: SAFETY AND OCCUPATIONAL HEALTH MANAGER will send clinicals via secure email to MILES Barnett. Will confirm time for RN to RN report tomorrow, 4.16. RAHEEM Vasquez
[2023-06-03] MEDS: CEFDINIR 300 MG CAPSULE PO ×2 (09:35→21:17)
[2023-06-03] MEDS: ACETAMINOPHEN 325 MG TABLET 650 MG PO ×2 (09:35→21:18)
[2023-06-03] MEDS: CYCLOBENZAPRINE 10 MG TABLET 5 MG PO ×2 (09:36→21:18)
[2023-06-03] MEDS: HEPARIN 5,000 UNIT/ML VIAL 5000 UNIT SUBCUT ×2 (09:43→21:17)
[2023-06-03] MEDS: SODIUM CHLORIDE 0.9% FLUSH 10 ML IV (09:43)
--- NOTE | 2023-06-03 13:08 | P.PN_ITS ---
Subjective Subjective Interval history: Awaiting longterm placement. Seen ambulating today with walker Exam Vital Signs (past 8 hours): - 06/03/23 08:00 Temperature 97.8 F Pulse Rate 72 Respiratory Rate 16 Blood Pressure 101/60 Oxygen Delivery Method Room Air Oxygen Flow Rate 0 Narrative Exam Narrative: NAD, alert and oriented. Fluent speech. Large area of abscess s/p drainage on back. Dressing in place. Objective Labs 06/03/23 04:50 06/03/23 04:50 Labs: Laboratory Results - last 24 hr 06/03/23 04:50 WBC 5.7 RBC 4.26 L Hgb 13.1 L Hct 38.8 L MCV 91.1 MCH 30.6 MCHC 33.6 RDW 14.1 Plt Count 230 Neut % (Auto) 40.8 L Lymph % (Auto) 43.1 H [place] % (Auto) 11.7 Eos % (Auto) 3.2 Baso % (Auto) 1.2 Neut # (Auto) 2300 Lymph # (Auto) 2500 [place] # (Auto) 700 Eos # (Auto) 200 Baso # (Auto) 100 Sodium 138 Potassium 4.1 Chloride 109 H Carbon Dioxide 26 BUN 14 Creatinine 0.84 Estimated GFR > 60 BUN/Creatinine Ratio 16.7 Glucose 159 H Calcium 8.6 PFSH Social History household members: none Smoking Status: Never smoker alcohol intake: never Assessment & Plan Assessment & Plan narrative: 1. Posterior thorax severe cellulitis with abscess s/p I&D, present on admission and active. 2. Type 2 diabetes mellitus (uncontrolled) , present on admission and active. 3. Unclear mental health issues , present on admission and active. 4. Medication non-complicance, , present on admission and active. PLAN: -continue insulin without any changes today. -continue po abx -wound care consulted and gave dressing recs. Dressing changes with Iodoform gauze is appropriate, followed by dry gauze topped with ABD pad. -psych assessed on 05/27, suggested likely personality disorder and no addition of medications at this time. -needs a more supportive outpatient medical plan. DCR has cleared him for not being incapacitated or harm to self. He unfortunately, is not willing to fill his medications or give himself insulin or take antibiotics or participate in outpatient wound care. There is a question of what kind of severity and with the nature of his mental health issues are. Social work is reaching out to his family in [place] see what kind of financial resources are available for paid help. -patient now willing to get up and walk around unit Dispo: Plan for adult family home, okay for discharge once accepted.
[2023-06-03 16:00] VITALS: BP 111/64; PULSE 85; RESP 16; TEMP 36.8; O2SAT 96
[2023-06-03 20:51] VITALS: BP 108/62; PULSE 79; RESP 16; TEMP 36.6; O2SAT 97
[2023-06-04 04:30] VITALS: BP 113/65; PULSE 75; RESP 16; TEMP 36.5; O2SAT 98
--- NOTE | 2023-06-04 06:51 | PC.NURSE ---
Tonight patient stated I am afraid about going into an adult family home and loosing all my money. Pt continues to lay in bed throughout the night. Declined getting out of bed and or ambulate during the night. Pt not participating in his care.
[2023-06-04] MEDS: INSULIN GLARGINE 100 UNIT/ML 3ML PEN 23 UNIT SUBCUT ×2 (08:06→20:52)
[2023-06-04] MEDS: INSULIN LISPRO 100 UNIT/ML 3ML VIAL SUBCUT ×3 (08:06→17:36)
[2023-06-04] MEDS: HEPARIN 5,000 UNIT/ML VIAL 5000 UNIT SUBCUT ×2 (08:08→20:52)
[2023-06-04] MEDS: CEFDINIR 300 MG CAPSULE PO ×2 (08:09→20:52)
--- NOTE | 2023-06-04 08:15 | P.PN_ITS ---
Subjective Subjective Interval history: Patient has no complaints. Say wound still draining enough to require daily dressings. Per [employer] patient close to going to [facility]. Exam Vital Signs (past 8 hours): - 06/04/23 04:30 Temperature 97.7 F Pulse Rate 75 Respiratory Rate 16 Blood Pressure 113/65 Pulse Oximetry 98 Oxygen Flow Rate 0 Oxygen Delivery Method Room Air Oxygen Flow Rate 0 Narrative Exam Narrative: NAD, alert and oriented. Fluent speech. Large area of abscess s/p drainage on back. Dressing in place. Objective Labs 06/03/23 04:50 06/03/23 04:50 [facility] Social History household members: none Smoking Status: Never smoker alcohol intake: never Assessment & Plan Assessment & Plan narrative: 1. Posterior thorax severe cellulitis with abscess s/p I&D, present on admission and active. 2. Type 2 diabetes mellitus (uncontrolled) , present on admission and active. 3. Unclear mental health issues , present on admission and active. 4. Medication non-complicance, , present on admission and active. PLAN: -continue insulin without any changes today. -continue po abx -wound care consulted and gave dressing recs. Dressing changes with Iodoform gauze is appropriate, followed by dry gauze topped with ABD pad. -psych assessed on 05/27, suggested likely personality disorder and no addition of medications at this time. -needs a more supportive outpatient medical plan. DCR has cleared him for not being incapacitated or harm to self. He unfortunately, is not willing to fill his medications or give himself insulin or take antibiotics or participate in outpatient wound care. There is a question of what kind of severity and with the nature of his mental health issues are. Social work is reaching out to his family in [place] see what kind of financial resources are available for paid help. -patient now willing to get up and walk around unit Dispo: Plan for adult family home, okay for discharge once accepted. Likely 1-2 days.
[2023-06-04 08:24] VITALS: BP 107/61; PULSE 79; RESP 16; O2SAT 94
[2023-06-04] MEDS: ACETAMINOPHEN 325 MG TABLET 650 MG PO ×2 (09:23→20:52)
[2023-06-04] MEDS: CYCLOBENZAPRINE 10 MG TABLET 5 MG PO ×2 (09:23→20:52)
--- NOTE | 2023-06-04 15:09 | PC.NURSE ---
Patient took a shower (set up assist only), then dressing to his right upper back changed. Wound cleansed with sterile saline, surrounding skin intact/used skin prep around site, packed with iodoform packing strip, covered with gauze 4x4 folded and then covered with allevyn gentle border dressing. Patient took walk in the meraz with this RN, used walker as his security blanket per patient. tolerated well.
--- NOTE | 2023-06-04 15:54 | CM.DPC ---
DCP COnt: KEITH spoke to contracted RN Ericka and helped set up RN to RN report this morning at 1030. KEITH spoke to Jamel at [facility] and he confirms he has spoken to MILES Barnett after her assessment was complete and is in agreement to accept the patient and has been in contact with DPOA who is also in agreement with moving forward. Jamel states pt's room is ready and potentially could accept as early as tomorrow 06/04. Jamel asking for the following assist: 1) getting pt scheduled for PCP. KEITH called [facility] and pt has appointment for establishing care on Jul 11 1399. 2) Ready Meds for pt's medications. SW printed of Ready Meds Form but due to triage needs has not yet been completed. 3) Wound Care Clinic/HH. KEITH contacted [facility] and they confirm they have pt's referral but require pre-auth to be submitted by us? [facility] and printed the pre-auth form but will need information from [facility] and maybe to push for them to submit the prior auth. KEITH contacted [facility] and discussed pt situation and they are willing to review and consider accepting but may need [facility] or the Wound Clinic to submit request for HH from [facility]. KEITH printed this form in case needed. Plan: SW to follow closely for completing above forms towards plan of discharge to [facility] via [employer] once wound care confirmed in place. KELIN Horne
[2023-06-05 08:00] VITALS: BP 99/54; PULSE 75; RESP 18; TEMP 35.9; O2SAT 98
[2023-06-05] MEDS: INSULIN GLARGINE 100 UNIT/ML 3ML PEN 23 UNIT SUBCUT ×2 (08:51→21:16)
[2023-06-05] MEDS: HEPARIN 5,000 UNIT/ML VIAL 5000 UNIT SUBCUT ×2 (08:52→21:15)
[2023-06-05] MEDS: ACETAMINOPHEN 325 MG TABLET 650 MG PO ×2 (08:52→21:16)
[2023-06-05] MEDS: CEFDINIR 300 MG CAPSULE PO ×2 (08:52→21:16)
[2023-06-05] MEDS: INSULIN LISPRO 100 UNIT/ML 3ML VIAL SUBCUT ×3 (08:52→17:23)
[2023-06-05] MEDS: CYCLOBENZAPRINE 10 MG TABLET 5 MG PO ×2 (09:38→21:16)
--- NOTE | 2023-06-05 15:54 | CM.DPC ---
DCP Cont. Reviewed EMR and team rounds for pt's status updates. Spoke to [facility] [place], completed the prior auth form and submitted. Called [facility] and requested a reconsideration of accepting pt for OP wound care, as his living circumstances have changed and he will be in an [facility]. 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 Will follow closely and on 06/05 will call [facility] to clarify their decision.
--- NOTE | 2023-06-05 18:24 | P.PN_ITS ---
Subjective Subjective Interval history: Awaiting placement. Exam Vital Signs (past 8 hours): Oxygen Delivery Method Room Air Oxygen Flow Rate 0 Narrative Exam Narrative: NAD, alert and oriented. Fluent speech. Large area of abscess s/p drainage on back. Dressing in place. Objective Labs 06/03/23 04:50 06/03/23 04:50 [facility] Social History household members: none Smoking Status: Never smoker alcohol intake: never Assessment & Plan Assessment & Plan narrative: 1. Posterior thorax severe cellulitis with abscess s/p I&D, present on admission and active. 2. Type 2 diabetes mellitus (uncontrolled) , present on admission and active. 3. Unclear mental health issues , present on admission and active. 4. Medication non-complicance, , present on admission and active. PLAN: -continue insulin without any changes today. -continue po abx -wound care consulted and gave dressing recs. Dressing changes with Iodoform gauze is appropriate, followed by dry gauze topped with ABD pad. -psych assessed on 05/27, suggested likely personality disorder and no addition of medications at this time. -needs a more supportive outpatient medical plan. DCR has cleared him for not being incapacitated or harm to self. He unfortunately, is not willing to fill his medications or give himself insulin or take antibiotics or participate in outpatient wound care. There is a question of what kind of severity and with the nature of his mental health issues are. Social work is reaching out to his family in [place] see what kind of financial resources are available for paid help. -patient now willing to get up and walk around unit Dispo: Plan for adult family home, okay for discharge once accepted. Likely 1-2 days.
--- NOTE | 2023-06-05 18:46 | PC.NURSE ---
pt has had an uneventful shift; dressing was changed; pt amb in meraz w/ FWW
[2023-06-06] MEDS: ACETAMINOPHEN 325 MG TABLET 650 MG PO ×2 (06:39→16:29)
--- NOTE | 2023-06-06 06:43 | PC.NURSE ---
Drsg to right upper back saturated. Drsg changed per order @ 3230.
[2023-06-06 08:00] VITALS: BP 105/64; PULSE 79; RESP 16; TEMP 36.4; O2SAT 97
[2023-06-06] MEDS: INSULIN LISPRO 100 UNIT/ML 3ML VIAL SUBCUT (08:03)
[2023-06-06] MEDS: CEFDINIR 300 MG CAPSULE PO ×2 (08:04→16:28)
[2023-06-06] MEDS: INSULIN GLARGINE 100 UNIT/ML 3ML PEN 23 UNIT SUBCUT (08:04)
[2023-06-06] MEDS: HEPARIN 5,000 UNIT/ML VIAL 5000 UNIT SUBCUT (08:07)
[2023-06-06] MEDS: CYCLOBENZAPRINE 10 MG TABLET 5 MG PO ×2 (08:08→16:28)
--- NOTE | 2023-06-06 11:18 | P.DS_ITS ---
History of Present Illness History of Present Illness Date Patient Seen: 06/06/23 Time Patient Seen: 11:19 Chief complaint: Infected Sting Narrative: Per admitting provider, From recent discharge: Hospital Course: This is a 47 year old male with PMH of autism vs personality disorder, DM2, who presented with a R back abscess and cellulitis. He also possibly had DKA on presentation, but improved with some insulin SQ and fluids. Cultures grew MSSA and patient was continued on ceftriaxone and vancomycin, ultimately changed to oral cefdinir. His abscess was drained by general surgery. [place] was in place initially, removed during his stay. Patient wished to discharge to SNF for wound care, for which he was refused by all. Multiple different placement options were considered, and patient's insurance did not cover home health. He was provided with a wound care clinic follow up appointment. He was discharged with another 5 days of cefdinir. He was sent prescriptions for lantus and pain medications, along with glucometer. He was advised as to the importance of follow up with primary care and the wound care clinic, and encouraged to take a more active role in his own health care. Recent events: He went home and did not fill his meds. He has been laying in bed with copious drainage from his upper back. He has not picked up insulin and taken. He denies a belief in having DM. He states he has no resources and has not applied for medicaid. He has not been taking antibiotics. He is weak, denies pain and denies dyspnea. No nausea or vomiting. Discharge Providers Provider Date of admission: 05/24/23 08:11 Discharge Date: 06/06/23 Consults: 05/23/23 17:37 Consult to DIALYSIS NURSE - [employer] [facility] Comment: 05/27/23 10:33 Consult to Physical Therapy Evaluate & Treat Comment: Physician Instructions: Evaluate and Treat Consult to Wound Care Routine Comment: Consulting Provider: [facility] 05/27/23 16:31 Consult to Physician Routine Comment: Consulting Provider: Travis Wilcox Reason for consultation: undiagnosed psychiatric problem Discharge provider: Brian Ding DO Summary Hospital Course Discharge Diagnosis: 1. Posterior thorax severe cellulitis with abscess s/p I&D, present on admission and active. 2. Type 2 diabetes mellitus (uncontrolled) , present on admission and active. 3. Unclear mental health issues , present on admission and active. 4. Medication non-complicance, , present on admission and active. Hospital Course: This is a 47 year old male who was recently admitted for diabetes and posterior thorax cellulitis and abscess. He had previous I&D, was discharged home with concern about wound care and represented with basically unwillingness to care for himself. His oral antibiotics were completed during his stay. Daily dressing changes with iodoform gauze, with dry gauze and ABD pad can be changed as needed but at least every other day. Follow up with wound care is recommended after discharge. Psychiatry was consulted and suggested a personality disorder, but no recommendations for medications. He unfortunately, is not willing to fill his medications or give himself insulin or take antibiotics or participate in outpatient wound care. He was discharged to an adult family home at the time of discharge. Time Spent with Patient Time spent: Greater than 30 minutes Exam Vital Signs (past 8 hours): - 06/06/23 08:00 Temperature 97.5 F L Pulse Rate 79 Respiratory Rate 16 Blood Pressure 105/64 Pulse Oximetry 97 Oxygen Flow Rate 0 Oxygen Delivery Method Room Air Oxygen Flow Rate 0 Narrative Exam Narrative: NAD, alert and oriented. Fluent speech. Large area of abscess s/p drainage on back. Dressing in place. Objective Labs 06/03/23 04:50 06/03/23 04:50 PFSH Social History household members: none Smoking Status: Never smoker alcohol intake: never Discharge Plan Discharge Plan Patient Disposition: Home Provider Discharge Comment: You were admitted to the hospital for an inability to care for yourself. You completed antibiotics here. Continue taking insulin and dressing changes. Discharge orders & Medications Prescriptions: New acetaminophen 325 mg tablet 650 mg PO Q4H PRN (Reason: fever or pain) Qty: 90 0RF cyclobenzaprine 5 mg tablet 5 mg PO TID PRN (Reason: muscle spasm) 7 Days Qty: 20 0RF (DME) Curity Abdominal Pad 5 X 9 bandage See Rx Instructions .Route Qty: 48 0RF Rx Instructions: for use with dressing chages q48 hr (DME) iodoform 1/2 X 5 -yard bandage See Rx Instructions .Route Qty: 12 2RF Rx Instructions: with dressing changes q48 hrs or more as needed (DME) pen needle, diabetic 32 gauge x 3/16 needle See Rx Instructions .Route Qty: 200 0RF Rx Instructions: BID with insulin pen for 90 days insulin glargine 100 unit/mL (3 mL) insulin pen 23 unit SUBCUT BID 90 Days Qty: 41.4 0RF (DME) Truetrack Test Strip See Rx Instructions .Route Qty: 300 0RF Rx Instructions: test 3-4 times daily for diabetes (DME) blood-glucose meter [TrueTrack Smart System] Kit See Rx Instructions .Route Qty: 1 0RF Rx Instructions: one glucose meter kit (DME) gauze bandage 4 X 4 bandage See Rx Instructions .Route Qty: 150 0RF Rx Instructions: for dressing changes q48hr or more frequently as needed Discontinued cefdinir 300 mg Capsule 300 mg PO BID 5 Days Qty: 10 0RF insulin glargine [Lantus Solostar U-100 Insulin] 100 unit/mL (3 mL) Insulin Pen 23 unit SUBCUT BID 30 Days Qty: 15 0RF oxycodone 5 mg Tablet 5 mg PO Q3H PRN (Reason: Pain, Moderate (4-6)) 5 Days Qty: 20 0RF insulin glargine 100 unit/mL (3 mL) insulin pen 23 unit SUBCUT BID 30 Days Qty: 15 2RF (DME) pen needle, diabetic [Pen Needle] 32 gauge x 5/32 needle See Rx Instructions .Route Qty: 100 0RF Rx Instructions: As directed (DME) blood-glucose meter [TrueTrack Smart System] Kit 1 ea miscellaneous .once Qty: 1 0RF Rx Instructions: One glucometer kit (DME) Easy Touch Test Strip Strip See Rx Instructions .Route Qty: 100 0RF Rx Instructions: Check 3-4 times daily Follow up/Referrals: *Temp,ED* [Non-Staff] - Diet/Activity/Treatments Diet: Diet as Tolerated and Carb-consistent/Diabetic Activity: As tolerated, no restrictions. Skin/Wound/Dressing Care Dressing: Iodoform gauze, dry gauze, and ABD pad every other day or as needed if soaked. Visit Report/Discharge Packet Instructions: How to Care for a Surgical Wound, Skin Wound Stand Alone Forms: Patient Portal/API, Stroke Signs & Symptoms Discharge Data Attending Provider: Rick Teague Admit Date/Time: 05/24/23 08:11
--- NOTE | 2023-06-06 13:26 | PC.NURSE ---
This AIRPLANE CAPTAIN asked pt if he wanted a shower. Doron declined and stated, I do not want to be wet before I leave.
--- NOTE | 2023-06-06 14:52 | CM.DPC ---
DCP Cont. Reviewed EMR and team rounds for status updates. Plan is for pt to d/c to [facility] at 4:00pm, medicaid transport time is pending. Will update the RN once this has been confirmed. Pt is aware and understanding of this plan.
[2023-06-06 15:09] VITALS: BP 127/88; PULSE 97; RESP 18; TEMP 36.9; O2SAT 97
--- NOTE | 2023-06-06 17:14 | PC.NURSE ---
This RN did diabetic nursing teaching with the pt at 1430 using an apple. Pt was able to demonstate pulling up short acting insulin and injecting it safely into the apple. Pt was able to return demonstration on how to use lantus insulin pen and safely prime and inject insulin into the apple. Gave discharge report to Jamel at [facility] at 1550 and gave report. Per Jamel, medication/prescriptions were sent to [place] [facility]. Jamel, verbalized understanding on how to pack the pt's wound, all questions were answered at the time of discharge.
--- NOTE | 2023-06-12 13:59 | CM.DPNOTE ---
DCP Note MATERIAL STRESS TESTER received call from Analy at [facility], claiming the [facility] that pt discharged to was requesting services for from this pt but they were not able to accept due to pt's insurance. Analy reported she attempted to contact [facility] services but was unable to get ahold of their team at this time. MATERIAL STRESS TESTER received notice from Sanaz at the clinic inquiring about pt' wound care concerns, she was alerted to by Analy from [facility]. MATERIAL STRESS TESTER updated Sanaz that per 06/04 DCP note, pt was set up with wound care at [facility]. MATERIAL STRESS TESTER updated CM team via email of on going wound care concerns for pt. KELIN Liang
== END 2023-06-06 16:30 | disposition home or self-care (01) ==
LOC: ED 05-24 08:11 → AC 05-24 08:11
PROVIDERS: Emergency Medicine; Internal Medicine; Admitting Provider Hospitalist; Emergency Provider Emergency Medicine; Referring Provider Emergency Medicine; Visit Provider Hospitalist
DX: L02.212 Cutaneous abscess of back [any part, except buttock and flank] (principal); L03.312 Cellulitis of back [any part except buttock and flank]; S20.461A Insect bite (nonvenomous) of right back wall of thorax, initial encounter; B95.61 Methicillin susceptible Staphylococcus aureus infection as the cause of diseases classified elsewhere; E11.9 Type 2 diabetes mellitus without complications; Z91.148 Patient's other noncompliance with medication regimen for other reason; F60.9 Personality disorder, unspecified
CPT/HCPCS: 36415; 70450; 76705; 80048; 80053; 82962; 85025; 87070; 87075; 87077; 87147; 87186; 87205; 96372; 97116; 97161; 99232; 99284; G0378; J1644; J1815